=== PATIENT | female | born 1950 | race American Indian/Alaskan Native ===

== ENCOUNTER 2017-03-21 09:54 | Observation (INO) | payer MEDICARE, MEDICAID, OTHER ==
[2017-03-21] MEDS ORDERED: Sodium Chloride 0.9% 1,000 ML IV SCH (10:00)
--- NOTE | 2017-03-21 10:03 | EDM.PDOC ---
ED HPI GENERAL MEDICAL PROBLEM - General Chief Complaint: Chest Pain Stated Complaint: IN BY AMBULANCE Time Seen by Provider: 03/21/17 09:54 Source of Information: Reports: Patient, EMS History Limitations: Reports: No Limitations - History of Present Illness INITIAL COMMENTS - FREE TEXT/NARRATIVE: 66 yo [place] Female c/o chest pain while in bed and was awoken. Pt took 2 sl ntg. and pain resolved. Pt. got out of bed and started dizziness. Ambulance called and Pt. given aspirin. PMHx. CAHD w/ 2 stents placed. PMHx. DM X 3 yrs. Onset: Today Onset Date: 03/21/17 Onset Time: 09:00 Duration: Hour(s): Location: Reports: Chest, Generalized Quality: Reports: Ache Severity: Moderate Improves with: Reports: Medication Worsens with: Reports: None Context: Reports: Other (PMHx. CAHD) Associated Symptoms: Reports: Chest Pain, Malaise, Weakness - Related Data Allergies Allergy/AdvReac Type Severity Reaction Status Date / Time No Known Allergies Allergy Verified 03/21/17 10:06 Home Meds: Home Meds ALPRAZolam [Xanax] 0.5 mg PO DAILY 08/20/14 [History] Aspirin [Ritu Chewable] 81 mg PO DAILY 08/20/14 [History] Lisinopril [Prinivil] 20 mg PO DAILY 08/20/14 [History] Metoprolol Tartrate [Lopressor] 25 mg PO BID 08/20/14 [History] Nitroglycerin [Nitrostat] 0.4 mg SL ASDIRECTED PRN 08/20/14 [History] [place]-3 Fatty Acids [[place]-3] 1 tab PO DAILY 08/20/14 [History] Oxybutynin 5 mg PO TID 08/20/14 [History] glyBURIDE [Glyburide] 10 mg PO DAILY 08/20/14 [History] Ammonium Lactate 1 applic TOP BID 03/14/16 [History] Fenofibric Acid (Choline) [Fenofibric Acid] 45 mg PO DAILY 03/14/16 [History] Sertraline [Zoloft] 100 mg PO DAILY 03/14/16 [History] atorvaSTATin [Lipitor] 20 mg PO DAILY 03/14/16 [History] Past Medical History HEENT History: Reports: Impaired Vision Cardiovascular History: Reports: Angina, Stents Social & Family History - Family History Family Medical History: Noncontributory - Tobacco Use Smoking Status *Q: Former Smoker Years of Tobacco use: 35 Used Tobacco, but Quit: Yes Month Tobacco Last Used: 6 years - Caffeine Use Caffeine Use: Reports: Coffee - Alcohol Use Days Per Week of Alcohol Use: 0 - Recreational Drug Use Recreational Drug Use: No ED ROS GENERAL - Review of Systems Review Of Systems: See Below Constitutional: Reports: Weakness, Fatigue HEENT: Reports: No Symptoms Respiratory: Reports: No Symptoms Cardiovascular: Reports: Chest Pain Endocrine: Reports: No Symptoms GI/Abdominal: Reports: No Symptoms : Reports: No Symptoms Musculoskeletal: Reports: No Symptoms Skin: Reports: No Symptoms Neurological: Reports: No Symptoms Psychiatric: Reports: No Symptoms Hematologic/Lymphatic: Reports: No Symptoms Immunologic: Reports: No Symptoms ED EXAM, GENERAL - Physical Exam Exam: See Below Exam Limited By: No Limitations General Appearance: Alert, WD/WN, No Apparent Distress Eye Exam: Bilateral Eye: EOMI, PERRL Ears: Normal External Exam Nose: Normal Inspection Throat/Mouth: Normal Inspection Head: Atraumatic, Normocephalic Neck: Normal Inspection Respiratory/Chest: No Respiratory Distress Cardiovascular: Normal Peripheral Pulses, Regular Rate, Rhythm, No Edema Peripheral Pulses: 2+: Brachial (L), Brachial (R) GI/Abdominal: Normal Bowel Sounds Back Exam: Normal Inspection Extremities: Normal Inspection Neurological: Alert, Oriented, CN II-XII Intact Psychiatric: Normal Affect, Normal Mood Skin Exam: Warm, Intact Lymphatic: No Adenopathy Course - Vital Signs Last Recorded V/S: Last Vital Signs Temp 36.2 C 03/21/17 09:57 Pulse 53 L 03/21/17 10:50 Resp 12 03/21/17 10:50 BP 97/57 L 03/21/17 10:50 Pulse Ox 98 03/21/17 10:50 - Orders/Labs/Meds Orders: Active Orders 24 hr Category Date Time Status EKG Documentation Completion [RC] STAT Care 03/21/17 09:55 Active RT Aerosol Therapy [RC] ASDIRECTED Care 03/21/17 12:09 Active CULTURE BLOOD [BC] Stat Lab 03/21/17 12:08 Ordered CULTURE URINE [RM] Stat Lab 03/21/17 11:12 Received LACTIC ACID [CHEM] Stat Lab 03/21/17 12:08 Ordered Sodium Chloride 0.9% [Normal Saline] 1,000 ml Med 03/21/17 10:00 Active IV ASDIRECTED cefTRIAXone [Rocephin] 1 gm Med 03/21/17 11:58 Active Sodium Chloride 0.9% [Normal Saline] 50 ml IV ONETIME Medication Orders Sodium Chloride (Normal Saline) 1,000 mls @ 75 mls/hr IV ASDIRECTED [facility] Last Admin: 03/21/17 10:12 Dose: 75 mls/hr Ceftriaxone Sodium 1 gm/ (Sodium Chloride) 50 mls @ 100 mls/hr IV ONETIME ONE Stop: 03/21/17 12:27 Last Admin: 03/21/17 12:03 Dose: 100 mls/hr Labs: Laboratory Tests 03/21/17 03/21/17 03/21/17 Range/Units 09:58 09:58 09:58 WBC 8.2 (5.0-10.0) 10^3/uL RBC 4.11 L (4.2-5.4) 10^6/uL Hgb 12.4 (12.0-16.0) g/dL Hct 37.7 (37.0-47.0) % MCV 91.7 (80-100) fL MCH 30.2 (27.0-34.0) pg MCHC 32.9 L (33.0-35.0) g/dL Plt Count 226 (150-450) 10^3/uL Neut % (Auto) 48.4 (42.2-75.2) % Lymph % (Auto) 39.5 (20.5-50.1) % [place] % (Auto) 8.8 H (2-8) % Eos % (Auto) 3.2 H (1.0-3.0) % Baso % (Auto) 0.1 (0.0-1.0) % PT 9.7 (9.0-12.0) SEC INR 1.0 (0.9-1.2) APTT 23.5 (22.0-34.0) SEC D-Dimer, Quantitative 613 H (0-400) ng/mL Sodium 139 (135-145) mmol/L Potassium 3.8 (3.6-5.0) mmol/L Chloride 108 (101-111) mmol/L Carbon Dioxide 24.0 (21.0-31.0) mmol/L Anion Gap 10.8 BUN 20 H (7-18) mg/dL Creatinine 1.1 (0.6-1.3) mg/dL Est Cr Clr Drug Dosing 42.85 mL/min Estimated GFR (MDRD) 50 BUN/Creatinine Ratio 18.18 Glucose 155 H (74-105) mg/dL Calcium 8.1 L (8.4-10.2) mg/dl Total Bilirubin 0.4 (0.2-1.0) mg/dL AST 18 (10-42) IU/L ALT 11 (10-60) IU/L Alkaline Phosphatase 33 L (42-121) IU/L Troponin I < 0.02 (0.00-0.02) ng/ml Total Protein 5.9 L (6.7-8.2) g/dl Albumin 3.0 L (3.2-5.5) g/dl Globulin 2.9 Albumin/Globulin Ratio 1.03 Urine Color (YELLOW) Urine Appearance (CLEAR) Urine pH (5.0-9.0) Ur Specific [place] (1.005-1.030) Urine Protein (NEGATIVE) Urine Glucose (UA) (NEGATIVE) Urine Ketones (NEGATIVE) Urine Occult Blood (NEGATIVE) Urine Nitrite (NEGATIVE) Urine Bilirubin (NEGATIVE) Urine Urobilinogen (0.2-1.0) mg/dL Ur Leukocyte Esterase (NEGATIVE) Urine RBC /HPF Urine WBC (0-5/HPF) /HPF Calcium Oxalate Crystal /HPF Amorphous Sediment (0/HPF) /HPF Urine Bacteria (0-FEW/HPF) /HPF 03/21/ Range/Units 11:12 WBC (5.0-10.0) 10^3/uL RBC (4.2-5.4) 10^6/uL Hgb (12.0-16.0) g/dL Hct (37.0-47.0) % MCV (80-100) fL MCH (27.0-34.0) pg MCHC (33.0-35.0) g/dL Plt Count (150-450) 10^3/uL Neut % (Auto) (42.2-75.2) % Lymph % (Auto) (20.5-50.1) % [place] % (Auto) (2-8) % Eos % (Auto) (1.0-3.0) % Baso % (Auto) (0.0-1.0) % PT (9.0-12.0) SEC INR (0.9-1.2) APTT (22.0-34.0) SEC D-Dimer, Quantitative (0-400) ng/mL Sodium (135-145) mmol/L Potassium (3.6-5.0) mmol/L Chloride (101-111) mmol/L Carbon Dioxide (21.0-31.0) mmol/L Anion Gap BUN (7-18) mg/dL Creatinine (0.6-1.3) mg/dL Est Cr Clr Drug Dosing mL/min Estimated GFR (MDRD) BUN/Creatinine Ratio Glucose (74-105) mg/dL Calcium (8.4-10.2) mg/dl Total Bilirubin (0.2-1.0) mg/dL AST (10-42) IU/L ALT (10-60) IU/L Alkaline Phosphatase (42-121) IU/L Troponin I (0.00-0.02) ng/ml Total Protein (6.7-8.2) g/dl Albumin (3.2-5.5) g/dl Globulin Albumin/Globulin Ratio Urine Color Yellow (YELLOW) Urine Appearance Cloudy (CLEAR) Urine pH 7.0 (5.0-9.0) Ur Specific [place] 1.020 (1.005-1.030) Urine Protein >=300 H (NEGATIVE) Urine Glucose (UA) Negative (NEGATIVE) Urine Ketones Negative (NEGATIVE) Urine Occult Blood Moderate H (NEGATIVE) Urine Nitrite Negative (NEGATIVE) Urine Bilirubin Negative (NEGATIVE) Urine Urobilinogen 0.2 (0.2-1.0) mg/dL Ur Leukocyte Esterase Negative (NEGATIVE) Urine RBC 10-20 H /HPF Urine WBC 0-5 (0-5/HPF) /HPF Calcium Oxalate Crystal Rare /HPF Amorphous Sediment Many H (0/HPF) /HPF Urine Bacteria Many H (0-FEW/HPF) /HPF Meds: Medications Generic Name Dose Route Start Last Admin Trade Name Freq PRN Reason Stop Dose Admin Sodium Chloride 1,000 mls @ 75 mls/hr 03/21/17 10:00 03/21/17 10:12 Normal Saline IV 75 mls/hr ASDIRECTED DAVID Administration Ceftriaxone Sodium 1 gm/ 50 mls @ 100 mls/hr 03/21/17 11:58 03/21/17 12:03 Sodium Chloride IV 03/21/17 12:27 100 mls/hr ONETIME ONE Administration Discontinued Medications Generic Name Dose Route Start Last Admin Trade Name Jonathan PRN Reason Stop Dose Admin Albuterol/Ipratropium 3 ml 03/21/17 12:09 Duoneb 3.0-0.5 Mg/3 Ml NEB 03/21/17 12:10 ONETIME ONE Iopamidol 100 ml 03/21/17 11:26 03/21/17 11:27 Isovue-370 (76%) IVPUSH 03/21/17 11:27 64 ml ONETIME ONE Administration Departure - Departure Time of Disposition: 12:17 Disposition: Admitted As Inpatient 65 Condition: Fair Clinical Impression: Atypical chest pain Pneumonia Qualifiers: Pneumonia type: due to unspecified organism Laterality: unspecified laterality Lung location: unspecified part of lung Qualified Code(s): J18.9 - Pneumonia, unspecified organism UTI (urinary tract infection) Qualifiers: Urinary tract infection type: acute cystitis Hematuria presence: with hematuria Qualified Code(s): N30.01 - Acute cystitis with hematuria Referrals: Baljinder Currie MD [Physician] - Forms: ED Department Discharge - My Orders Last 24 Hours: My Active Orders 03/21/17 09:55 EKG Documentation Completion [RC] STAT 03/21/17 10:00 Sodium Chloride 0.9% [Normal Saline] 1,000 ml IV ASDIRECTED 03/21/17 11:12 CULTURE URINE [RM] Stat 03/21/17 11:58 cefTRIAXone [Rocephin] 1 gm Sodium Chloride 0.9% [Normal Saline] 50 ml IV ONETIME 03/21/17 12:08 CULTURE BLOOD [BC] Stat LACTIC ACID [CHEM] Stat 03/21/17 12:09 RT Aerosol Therapy [RC] ASDIRECTED - Assessment/Plan Last 24 Hours: My Active Orders 03/21/17 09:55 EKG Documentation Completion [RC] STAT 03/21/17 10:00 Sodium Chloride 0.9% [Normal Saline] 1,000 ml IV ASDIRECTED 03/21/17 11:12 CULTURE URINE [RM] Stat 03/21/17 11:58 cefTRIAXone [Rocephin] 1 gm Sodium Chloride 0.9% [Normal Saline] 50 ml IV ONETIME 03/21/17 12:08 CULTURE BLOOD [BC] Stat LACTIC ACID [CHEM] Stat 03/21/17 12:09 RT Aerosol Therapy [RC] ASDIRECTED
[2017-03-21 10:25] LABS: CHLORIDE,CL 108 mmol/L (101-111); SODIUM,NA 139 mmol/L (135-145)
--- NOTE | 2017-03-21 10:27 | CR ---
Clinical history: 66-year-old female chest pain. Interpretation: No acute new cardiopulmonary abnormality identified in the interval since 14 March 2016 exam. External mail list librarian leads. Normal cardiac silhouette without alveolar edema or dependent pleural effusion. No new lung mass, hilar lymphadenopathy or focal lobar pneumonia. No atelectasis/collapse. No pneumot horax.
[2017-03-21] MEDS ORDERED: Iopamidol 755 Mg/ML 100 ML Bottle IVPUSH ONE (11:26)
[2017-03-21] MEDS ORDERED: cefTRIAXone 1 GM in Sodium Chloride 0.9% 50 ML IV ONE (11:58)
--- NOTE | 2017-03-21 11:59 | CT ---
Clinical history: 66-year-old hypertensive 166 pound diabetic female with chest pain and serum D dime r 630. TECHNIQUE: Volume acquisition of data from the chest (bony thorax, lungs and mediastinum) obtained du ring the intravenous nonionic Isovue 370 contrast via injector while patient was lying supine on the Siemens multislice scanner [place], [place]. All data archived in the PACS system for storage, reformatting and (lung/mediastinal windows). Interpretation: Low probability pulmonary embolism/infarct. Multilobar infiltrates and subtle right a pical mass density. 1. Peribronchial "cuffing" and bilateral small subpleural cystic lesions. 2. Scattered patchy multilobar peripheral infiltrates involving upper and lower lobes. Clinical aspir ation? (No hiatus hernia). 3. *No intraluminal filling defect or thrombus identified in the pulmonary artery circulation. No abn ormal focal areas of lobar oligemia, peripheral wedge-shaped infarct or associated pleural effusion. 4. Normal cardiac silhouette. No pericardial effusion. No alveolar edema. Calcifications normal calib er thoracic aorta. 5. Asymmetric, posterior apical pleural mass density, on the right, suggested on recent plain chest e xam this is relatively unchanged compared to AP chest plain film 14 March 2016. Significance? No o verlying rib destruction. 6. No parenchymal lung nodule or hilar/mediastinal lymphadenopathy.
[2017-03-21] MEDS ORDERED: Albuterol/Ipratropium 3.0-0.5 MG/3 ML Neb Soln NEB ONE (12:09)
[2017-03-21] MEDS ORDERED: Ondansetron 4 MG Tab.DIS PO PRN (13:10)
[2017-03-21] MEDS ORDERED: Acetaminophen 325 MG Tab PO PRN (13:10)
[2017-03-21] MEDS ORDERED: Zolpidem 5 MG Tab PO PRN (13:10)
--- NOTE | 2017-03-21 13:19 | PCM.HP ---
H&P History of Present Illness - General Date of Service: 03/21/17 Admit Problem/Dx: Admission Diagnosis/Problem Admission Diagnosis/Problem Chest pain Source of Information: Patient - History of Present Illness Initial Comments - Free Text/Narative: The patient has a history of coronary artery disease, CHF. The patient presented with "heartburn". She is describing a burning sensation in the chest midsternal area. This was associated with the episodes of vomiting. He has a dry cough but no fever, chills. Sick contacts. Chest pain has resolved. Shortness of breath. No urinary burning, abdominal pain. - Related Data Allergies/Adverse Reactions: Allergies Allergy/AdvReac Type Severity Reaction Status Date / Time No Known Allergies Allergy Verified 03/21/17 13:04 Home Medications: Home Meds ALPRAZolam [Xanax] 0.5 mg PO DAILY 08/20/14 [History] Aspirin [Ritu Chewable] 81 mg PO DAILY 08/20/14 [History] Lisinopril [Prinivil] 20 mg PO DAILY 08/20/14 [History] Metoprolol Tartrate [Lopressor] 25 mg PO BID 08/20/14 [History] Nitroglycerin [Nitrostat] 0.4 mg SL ASDIRECTED PRN 08/20/14 [History] [place]-3 Fatty Acids [[place]-3] 1 tab PO DAILY 08/20/14 [History] Oxybutynin 5 mg PO TID 08/20/14 [History] glyBURIDE [Glyburide] 10 mg PO DAILY 08/20/14 [History] Ammonium Lactate 1 applic TOP BID 03/14/16 [History] Fenofibric Acid (Choline) [Fenofibric Acid] 45 mg PO DAILY 03/14/16 [History] Sertraline [Zoloft] 100 mg PO DAILY 03/14/16 [History] atorvaSTATin [Lipitor] 20 mg PO DAILY 03/14/16 [History] Past Medical History HEENT History: Reports: Impaired Vision Cardiovascular History: Reports: Angina, Stents Respiratory History: Reports: None Gastrointestinal History: Reports: None Genitourinary History: Reports: None [employer]PER[employer]OR History: Reports: None Musculoskeletal History: Reports: None Neurological History: Reports: None Psychiatric History: Reports: None Endocrine/Metabolic History: Reports: Diabetes, Type II Hematologic History: Reports: None Immunologic History: Reports: None Oncologic (Cancer) History: Reports: None Dermatologic History: Reports: None - Infectious Disease History Infectious Disease History: Reports: None - Past Surgical History Cardiovascular Surgical History: Reports: Carotid Endarterectomy, Coronary Artery Stent Social & Family History - Family History Family Medical History: Noncontributory - Tobacco Use Smoking Status *Q: Former Smoker Years of Tobacco use: 35 Used Tobacco, but Quit: Yes Month Tobacco Last Used: 6 years - Caffeine Use Caffeine Use: Reports: Coffee - Alcohol Use Days Per Week of Alcohol Use: 0 - Recreational Drug Use Recreational Drug Use: No H&P Review of Systems - Review of Systems: Review Of Systems: See Below General: Denies: Fever, Chills Pulmonary: Denies: Shortness of Breath Cardiovascular: Reports: Chest Pain. Denies: Edema Gastrointestinal: Denies: Abdominal Pain Genitourinary: Denies: Dysuria Psychiatric: Denies: Confusion Exam - Exam Exam: See Below - Vital Signs Vital Signs: Last Vital Signs Temp 36.4 C 03/21/17 12:51 Pulse 58 L 03/21/17 12:51 Resp 20 03/21/17 12:51 BP 102/54 L 03/21/17 12:51 Pulse Ox 100 03/21/17 12:51 Weight: 77.111 kg - Exam General: Alert, Oriented Neck: Supple, Trachea Midline Lungs: Normal Respiratory Effort, Decreased Breath Sounds Cardiovascular: Regular Rate, Regular Rhythm GI/Abdominal Exam: Normal Bowel Sounds, Soft, Non-Tender, No Organomegaly Extremities: No Pedal Edema Skin: Warm, Dry Neuro Extensive - Mental Status: Alert, Oriented x3, Normal Mood/Affect Psychiatric: Normal Affect, Normal Mood - Patient Data Result Diagrams: 03/21/17 09:58 03/21/17 09:58 EKG INTERPRETATION Rhythm: NSR *Q Meaningful Use (ADM) - VTE *Q VTE Criteria *Q: - Stroke *Q Stroke Criteria *Q: - AMI *Q AMI Criteria *Q: - Problem List (1) Atypical chest pain SNOMED Code(s): 933927295 ICD Code: R07.89 - OTHER CHEST PAIN Status: Acute Current Visit: Yes Problem List Initiated/Reviewed/Updated: Yes Orders Last 24hrs: Active Orders 24 hr Category Date Time Status Patient Status [ADT] Routine ADT 03/21/17 13:10 Ordered Antiembolic Devices [RC] PER UNIT ROUTINE Care 03/21/17 13:13 Ordered Blood Glucose Check, Bedside [RC] QIDACANDBED Care 03/21/17 13:10 Ordered Oxygen Therapy [RC] PRN Care 03/21/17 13:10 Ordered Peripheral IV Care [RC] . DIRECTED Care 03/21/17 13:13 Ordered Telemetry Monitoring [Cardiac Monitoring] [RC] . Care 03/21/17 13:05 Ordered DIRECTED Up With Assistance [RC] ASDIRECTED Care 03/21/17 13:10 Ordered VTE/DVT Education [RC] PER UNIT ROUTINE Care 03/21/17 13:10 Ordered Vital Signs [RC] Q4H Care 03/21/17 13:10 Ordered Consistent Carbohydrate Diet [DIET] Diet 03/21/17 Dinner Ordered BASIC METABOLIC PANEL,BMP [CHEM] AM Lab 03/22/17 05:11 Ordered CBC WITH AUTO DIFF [HEME] AM Lab 03/22/17 05:11 Ordered CULTURE SPUTUM + SMEAR [RM] Routine Lab 03/21/17 13:03 Uncollected TROPONIN I [CHEM] AM Lab 03/22/17 05:11 Ordered TROPONIN I [CHEM] Routine Lab 03/21/17 18:00 Ordered ALPRAZolam [Xanax] Med 03/22/17 09:00 Ordered 0.5 mg PO DAILY Acetaminophen [Tylenol] Med 03/21/17 13:10 Ordered 650 mg PO Q4H PRN Aspirin Med 03/22/17 09:00 Ordered 81 mg PO DAILY Fenofibric Acid (Choline) [Fenofibric Acid] Med 03/22/17 09:00 Ordered 45 mg PO DAILY Heparin Sodium Med 03/21/17 14:00 Ordered 5,000 units SUBCUT Q8HR Insulin Aspart [NovoLOG] Med 03/21/17 17:00 Ordered See Protocol SUBCUT TIDAC Lisinopril [Prinivil] Med 03/22/17 09:00 Ordered 20 mg PO DAILY Metoprolol Tartrate [Lopressor] Med 03/21/17 21:00 Ordered 25 mg PO BID Roper-3 Fatty Acids [Roper-3] Med 03/22/17 09:00 Ordered 1 tab PO DAILY Ondansetron [Zofran ODT] Med 03/21/17 13:10 Ordered 4 mg PO Q6H PRN Oxybutynin Med 03/21/17 14:00 Ordered 5 mg PO TID Piperacillin/Tazobactam [Zosyn] 3.375 gm Med 03/21/17 13:15 Ordered Sodium Chloride 0.9% [Normal Saline] 100 ml IV Q6H Sertraline [Zoloft] Med 03/22/17 09:00 Ordered 100 mg PO DAILY Sodium Chloride 0.9% [Saline Flush] Med 03/21/17 13:10 Ordered 10 ml FLUSH ASDIRECTED PRN Zolpidem [Ambien] Med 03/21/17 13:10 Ordered 5 mg PO BEDTIME PRN atorvaSTATin [Lipitor] Med 03/22/17 09:00 Ordered 20 mg PO DAILY glyBURIDE [Micronase] Med 03/22/17 09:00 Ordered 10 mg PO DAILY Antiembolic Hose [OM.PC] Per Unit Routine Oth 03/21/17 13:12 Ordered Peripheral IV Insertion Adult [OM.PC] Routine Oth 03/21/17 13:10 Ordered Saline Lock Insert [OM.PC] Routine Oth 03/21/17 13:10 Ordered Resuscitation Status Routine Resus Stat 03/21/17 13:10 Ordered Medication Orders Acetaminophen (Tylenol) 650 mg PO Q4H PRN PRN Reason: Pain (Mild 1-3)/fever Alprazolam (Xanax) 0.5 mg PO DAILY [facility] Aspirin (Aspirin) 81 mg PO DAILY [facility] Atorvastatin Calcium (Lipitor) 20 mg PO DAILY [facility] Glyburide (Micronase) 10 mg PO DAILY [facility] Piperacillin Sod/Tazobactam (Sod 3.375 gm/ Sodium Chloride) 100 mls @ 200 mls/ hr IV Q6HR [facility] Lisinopril (Prinivil) 20 mg PO DAILY [facility] Metoprolol Tartrate (Lopressor) 25 mg PO BID [facility] Non-Formulary Medication (Fenofibric Acid (Choline) [Fenofibric Acid]) 45 mg PO DAILY [facility] Non-Formulary Medication (Roper-3 Fatty Acids [Roper-3]) 1 tab PO DAILY [facility] Non-Formulary Medication (Sertraline [Zoloft]) 100 mg PO DAILY [facility] Oxybutynin Chloride (Oxybutynin) 5 mg PO TID [facility] Assessment/Plan Comment:: Presented with "heartburn" nausea and vomiting. The patient clinically has little signs and symptoms of pulmonary infection. She does have a nonproductive cough. No sick contact, denies fever. CT of the chest showed the low probability pulmonary embolism/infarct, multilobar infiltrates and subtle right apical mass density The patchy multilobar infiltrates were seen involving the upper and lower lobe. For his. 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 The patient did state that she had vomiting, question aspiration. For now well obtain sputum culture, blood culture. Empirically treat with Zosyn. Monitor for signs and symptoms of infection Consider follow-up CT in a month or 2 to make sure that the pleural based mass is not changed. The urine analysis is normal but appears contaminant. Nitrate and leukocyte esterase is negative. Will follow urine culture. Now treat with Zosyn History of coronary artery disease The patient was complaining of heartburn We will check troponins. Monitor on telemetry Treat with aspirin, Lipitor, lisinopril, metoprolol The chest discomfort for might relate to acid reflux disease. Start proton pump inhibitor Use antiemetics as needed Diabetes Treat with glyburide Follow blood sugars and use supplemental insulin as needed DVT prophylaxis will be with subcutaneous heparin
[2017-03-21] MEDS: Piperacillin/Tazobactam 3.375 GM in Sodium Chloride 0.9% 100 ML IV SCH ×3 (14:36→23:48)
[2017-03-21] MEDS: Heparin Sodium 5,000 Units/ML Vial SUBCUT SCH ×2 (14:36→21:06)
[2017-03-21] MEDS: Oxybutynin 5 MG Tab PO SCH ×2 (14:37→21:01)
[2017-03-21] MEDS: Pantoprazole 40 MG Tab.CR PO SCH ×2 (14:37→17:17)
[2017-03-21] MEDS: Sodium Chloride 0.9% 10 ML Syringe FLUSH PRN ×2 (17:17→23:48)
[2017-03-21] MEDS: Insulin Aspart 100 Units/ML 3 ML Pen SUBCUT SCH (17:28)
[2017-03-21] MEDS: Metoprolol Tartrate 25 MG Tab PO SCH (21:00)
[2017-03-22] MEDS: Heparin Sodium 5,000 Units/ML Vial SUBCUT SCH (05:46)
[2017-03-22] MEDS: Pantoprazole 40 MG Tab.CR PO SCH (05:47)
[2017-03-22] MEDS: Piperacillin/Tazobactam 3.375 GM in Sodium Chloride 0.9% 100 ML IV SCH ×2 (05:47→12:00)
[2017-03-22 06:31] LABS: CHLORIDE,CL 104 mmol/L (101-111); SODIUM,NA 138 mmol/L (135-145)
[2017-03-22] MEDS: Insulin Aspart 100 Units/ML 3 ML Pen SUBCUT SCH ×2 (07:46→11:20)
[2017-03-22] MEDS ORDERED: ALPRAZolam 0.5 MG Tab PO SCH (09:00)
[2017-03-22] MEDS ORDERED: glyBURIDE 5 MG Tab PO SCH (09:00)
[2017-03-22] MEDS ORDERED: Lisinopril 20 MG Tab PO SCH (09:00)
[2017-03-22] MEDS ORDERED: Aspirin 81 MG Tab.Chew PO SCH (09:00)
[2017-03-22] MEDS ORDERED: Sertraline 50 MG Tab PO SCH (09:00)
[2017-03-22] MEDS ORDERED: FENOFIBRIC ACID 45 MG PO SCH (09:00)
[2017-03-22] MEDS ORDERED: atorvaSTATin 20 MG Tab PO SCH (09:00)
[2017-03-22] MEDS ORDERED: OMEGA PO SCH (09:00)
[2017-03-22] MEDS: Oxybutynin 5 MG Tab PO SCH (09:05)
[2017-03-22] MEDS: Metoprolol Tartrate 25 MG Tab PO SCH (09:06)
[2017-03-22 09:07] VITALS: BP 133/66
[2017-03-22] MEDS: Sodium Chloride 0.9% 10 ML Syringe FLUSH PRN (09:07)
--- NOTE | 2017-03-22 10:01 | PCM.DCSUM1 ---
Discharge Summary - Hospital Course Free Text/Narrative:: Presented with "heartburn" nausea and vomiting. The patient clinically had little signs and symptoms of pulmonary infection. She does have a nonproductive cough. No sick contact, denies fever. CT of the chest showed the low probability pulmonary embolism/infarct, multilobar infiltrates and subtle right apical mass density The patchy multilobar infiltrates were seen involving the upper and lower lobe. 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 The patient did state that she had vomiting, question aspiration. sputum culture, blood culture: pending Empirically treated with Zosyn and will switch to Augmentin for bronchitis, possible aspiration pneumonia with vomiting. Consider follow-up CT in a month or 2 to make sure that the pleural based mass is not changed. The urine analysis is normal but appears contaminant. Nitrate and leukocyte esterase is negative. urine culture: pending History of coronary artery disease The patient was complaining of heartburn, cp. This was likely GERD started protonix had negative troponin Treat with aspirin, Lipitor, lisinopril, metoprolol - Discharge Data Discharge Date: 03/22/17 Discharge Disposition: Home, Self-Care 01 Condition: Good - Discharge Diagnosis/Problem(s) (1) Atypical chest pain SNOMED Code(s): 551202723 ICD Code: R07.89 - OTHER CHEST PAIN Status: Acute Current Visit: Yes - Patient Instructions Diet: Heart Healthy Diet Activity: As Tolerated - Discharge Plan Prescriptions/Med Rec: Amoxicillin/Potassium Clav [Augmentin 500-125 Tablet] 1 each PO TID #15 tablet Pantoprazole [ProTONIX] 40 mg PO DAILY #30 tab.cr Home Medications: Home Meds ALPRAZolam [Xanax] 0.5 mg PO DAILY 08/20/14 [History] Aspirin [Ritu Chewable Aspirin] 81 mg PO DAILY 08/20/14 [History] Lisinopril [Prinivil] 20 mg PO DAILY 08/20/14 [History] Metoprolol Tartrate [Lopressor] 25 mg PO BID 08/20/14 [History] Nitroglycerin [Nitrostat] 0.4 mg SL ASDIRECTED PRN 08/20/14 [History] Sondheimer-3 Fatty Acids [Sondheimer-3] 1 tab PO DAILY 08/20/14 [History] Oxybutynin 5 mg PO TID 08/20/14 [History] glyBURIDE [Glyburide] 10 mg PO DAILY 08/20/14 [History] Ammonium Lactate 1 applic TOP BID 03/14/16 [History] Fenofibric Acid (Choline) [Fenofibric Acid] 45 mg PO DAILY 03/14/16 [History] Sertraline [Zoloft] 100 mg PO DAILY 03/14/16 [History] atorvaSTATin [Lipitor] 20 mg PO DAILY 03/14/16 [History] Amoxicillin/Potassium Clav [Augmentin 500-125 Tablet] 1 each PO TID #15 tablet 03/22/17 [Rx] Pantoprazole [ProTONIX] 40 mg PO DAILY #30 tab.cr 03/22/17 [Rx] Referrals: Provider,Unknown [Ordering Only Provider] - (in 4-5 days) - Discharge Summary/Plan Comment DC Time >30 min.: No - General Info Date of Service: 03/22/17 Admission Dx/Problem (Free Text: Admission Diagnosis/Problem feeling well, has cough, no fever - Review of Systems General: Denies: Fever, Fatigue Pulmonary: Denies: Shortness of Breath Cardiovascular: Denies: Chest Pain Gastrointestinal: Denies: Abdominal Pain Genitourinary: Denies: Dysuria Neurological: Denies: Confusion - Patient Data Vitals - Most Recent: Last Vital Signs Temp 36.9 C 03/22/17 06:56 Pulse 62 03/22/17 09:06 Resp 20 03/22/17 06:56 BP 133/66 03/22/17 09:06 Pulse Ox 99 03/22/17 06:56 Weight - Most Recent: 77.564 kg I&O - Last 24 hours: Intake & Output 03/21/17 03/22/17 03/22/17 22:59 06:59 14:59 Intake Total 439 900 Output Total 300 1400 800 Balance 139 -500 -800 Lab Results - Last 24 hrs: Laboratory Results - last 24 hr 03/21/17 03/21/17 03/21/17 Range/Units 16:38 18:00 21:06 WBC (5.0-10.0) 10^3/uL RBC (4.2-5.4) 10^6/uL Hgb (12.0-16.0) g/dL Hct (37.0-47.0) % MCV (80-100) fL MCH (27.0-34.0) pg MCHC (33.0-35.0) g/dL Plt Count (150-450) 10^3/uL Neut % (Auto) (42.2-75.2) % Lymph % (Auto) (20.5-50.1) % [place] % (Auto) (2-8) % Eos % (Auto) (1.0-3.0) % Baso % (Auto) (0.0-1.0) % Sodium (135-145) mmol/L Potassium (3.6-5.0) mmol/L Chloride (101-111) mmol/L Carbon Dioxide (21.0-31.0) mmol/L Anion Gap BUN (7-18) mg/dL Creatinine (0.6-1.3) mg/dL Est Cr Clr Drug Dosing mL/min Estimated GFR (MDRD) Glucose (74-105) mg/dL POC Glucose 100 51 L (70-105) mg/dl Calcium (8.4-10.2) mg/dl Troponin I < 0.02 (0.00-0.02) ng/ml 03/22/17 03/22/17 03/22/17 Range/Units 05:00 05:00 06:24 WBC 7.0 (5.0-10.0) 10^3/uL RBC 3.97 L (4.2-5.4) 10^6/uL Hgb 12.0 (12.0-16.0) g/dL Hct 36.7 L (37.0-47.0) % MCV 92.4 (80-100) fL MCH 30.2 (27.0-34.0) pg MCHC 32.7 L (33.0-35.0) g/dL Plt Count 227 (150-450) 10^3/uL Neut % (Auto) 38.5 L (42.2-75.2) % Lymph % (Auto) 49.7 (20.5-50.1) % [place] % (Auto) 8.3 H (2-8) % Eos % (Auto) 3.2 H (1.0-3.0) % Baso % (Auto) 0.3 (0.0-1.0) % Sodium 138 (135-145) mmol/L Potassium 4.2 (3.6-5.0) mmol/L Chloride 104 (101-111) mmol/L Carbon Dioxide 24.0 (21.0-31.0) mmol/L Anion Gap 14.2 BUN 18 (7-18) mg/dL Creatinine 1.1 (0.6-1.3) mg/dL Est Cr Clr Drug Dosing 42.85 mL/min Estimated GFR (MDRD) 50 Glucose 65 L (74-105) mg/dL POC Glucose 119 H (70-105) mg/dl Calcium 8.4 (8.4-10.2) mg/dl Troponin I < 0.02 (0.00-0.02) ng/ml 03/22/17 Range/Units 07:35 WBC (5.0-10.0) 10^3/uL RBC (4.2-5.4) 10^6/uL Hgb (12.0-16.0) g/dL Hct (37.0-47.0) % MCV (80-100) fL MCH (27.0-34.0) pg MCHC (33.0-35.0) g/dL Plt Count (150-450) 10^3/uL Neut % (Auto) (42.2-75.2) % Lymph % (Auto) (20.5-50.1) % [place] % (Auto) (2-8) % Eos % (Auto) (1.0-3.0) % Baso % (Auto) (0.0-1.0) % Sodium (135-145) mmol/L Potassium (3.6-5.0) mmol/L Chloride (101-111) mmol/L Carbon Dioxide (21.0-31.0) mmol/L Anion Gap BUN (7-18) mg/dL Creatinine (0.6-1.3) mg/dL Est Cr Clr Drug Dosing mL/min Estimated GFR (MDRD) Glucose (74-105) mg/dL POC Glucose 80 (70-105) mg/dl Calcium (8.4-10.2) mg/dl Troponin I (0.00-0.02) ng/ml Med Orders - Current: Current Medications Acetaminophen (Tylenol) 650 mg PO Q4H PRN PRN Reason: Pain (Mild 1-3)/fever Alprazolam (Xanax) 0.5 mg PO DAILY [facility] Last Admin: 03/22/17 09:05 Dose: 0.5 mg Aspirin (Aspirin) 81 mg PO DAILY [facility] Last Admin: 03/22/17 09:04 Dose: 81 mg Atorvastatin Calcium (Lipitor) 20 mg PO DAILY [facility] Last Admin: 03/22/17 09:06 Dose: 20 mg Glyburide (Micronase) 10 mg PO DAILY [facility] Last Admin: 03/22/17 09:05 Dose: 10 mg Heparin Sodium (Porcine) (Heparin Sodium) 5,000 units SUBCUT Q8HR [facility] Last Admin: 03/22/17 05:46 Dose: 5,000 units Piperacillin Sod/Tazobactam (Sod 3.375 gm/ Sodium Chloride) 100 mls @ 200 mls/ hr IV Q6HR [facility] Last Infusion: 03/22/17 07:47 Dose: Infused Insulin Aspart (Novolog) 0 unit SUBCUT TIDAC [facility] PRN Reason: Protocol Last Admin: 03/22/17 07:46 Dose: Not Given Lisinopril (Prinivil) 20 mg PO DAILY [facility] Last Admin: 03/22/17 09:06 Dose: 20 mg Metoprolol Tartrate (Lopressor) 25 mg PO BID [facility] Last Admin: 03/22/17 09:06 Dose: 25 mg Non-Formulary Medication (Fenofibric Acid (Choline) [Fenofibric Acid]) 45 mg PO DAILY [facility] Non-Formulary Medication (Sondheimer-3 Fatty Acids [Sondheimer-3]) 1 tab PO DAILY [facility] Ondansetron HCl (Zofran Odt) 4 mg PO Q6H PRN PRN Reason: nausea, able to take PO Oxybutynin Chloride (Oxybutynin) 5 mg PO TID [facility] Last Admin: 03/22/17 09:05 Dose: 5 mg Pantoprazole Sodium (Protonix) 40 mg PO BIDAC [facility] Last Admin: 03/22/17 05:47 Dose: 40 mg Sertraline HCl (Zoloft) 100 mg PO DAILY [facility] Last Admin: 03/22/17 09:06 Dose: 100 mg Sodium Chloride (Saline Flush) 10 ml FLUSH ASDIRECTED PRN PRN Reason: Keep Vein Open Last Admin: 03/22/17 09:07 Dose: 10 ml Zolpidem Tartrate (Ambien) 5 mg PO BEDTIME PRN PRN Reason: Sleep Discontinued Medications Albuterol/Ipratropium (Duoneb 3.0-0.5 Mg/3 Ml) 3 ml NEB ONETIME ONE Stop: 03/21/17 12:10 Last Admin: 03/21/17 12:26 Dose: 3 ml Sodium Chloride (Normal Saline) 1,000 mls @ 75 mls/hr IV ASDIRECTED DAVID Last Admin: 03/21/17 10:12 Dose: 75 mls/hr Ceftriaxone Sodium 1 gm/ (Sodium Chloride) 50 mls @ 100 mls/hr IV ONETIME ONE Stop: 03/21/17 12:27 Last Admin: 03/21/17 12:03 Dose: 100 mls/hr Iopamidol (Isovue-370 (76%)) 100 ml IVPUSH ONETIME ONE Stop: 03/21/17 11:27 Last Admin: 03/21/17 11:27 Dose: 64 ml - Exam General: Reports: Alert, Oriented Neck: Reports: Supple Lungs: Reports: Clear to Auscultation, Normal Respiratory Effort Cardiovascular: Reports: Regular Rate, Regular Rhythm GI/Abdominal Exam: Normal Bowel Sounds, Soft, Non-Tender Extremities: No Pedal Edema *Q Meaningful Use (DIS) - VTE *Q VTE Criteria *Q: - Stroke *Q Stroke Criteria *Q: - AMI *Q AMI Criteria *Q:
--- NOTE | 2017-03-25 07:36 | EKG ---
03/21/2017- September JEANNIE - EKG per my reading shows sinus rhythm at the rate of 60. [facility] /[id number]
== END 2017-03-22 11:15 | disposition home or self-care (01) ==
LOC: DL.ED 09:54 → DL.MS 12:42 → UNDOADMOB 12:42 → INTOOBSV 12:42 → DL.MS 13:10
PROVIDERS: ADMIT Internal Medicine; ATTEND Internal Medicine
DX: R07.89 Other chest pain (principal); E11.9 Type 2 diabetes mellitus without complications; Z79.82 Long term (current) use of aspirin; Z79.2 Long term (current) use of antibiotics; Z79.899 Other long term (current) drug therapy; Z95.5 Presence of coronary angioplasty implant and graft; Z87.891 Personal history of nicotine dependence
CPT/HCPCS: 36415; 71010; 71260; 80048; 80053; 81001; 82962; 83605; 84484; 85025; 85379; 85610; 85730; 87040; 87086; 93005; 93010; 94640; 96361; 96365; 99285; A9270; J0696; J1644; J2543; J7030; J7050; Q9967; 87088; 87186; 96366; 96367; 96372; 99217; 99284; G0378

== ENCOUNTER 2018-10-06 07:13 | Day surgery (SDC) | payer MEDICARE, MEDICAID ==
[~2018-10-06 07:13] MED LIST: Dextrose 5%-0.45% NaCl 1,000 ML IV SCH; Midazolam 1 MG/ML 2 ML SDV ONE; Sodium Chloride 0.9% 10 ML Syringe FLUSH PRN; fentaNYL 100 MCG/2 ML SDV ONE
[2018-10-06] MEDS ORDERED: Midazolam 1 MG/ML 2 ML SDV IV ONE ×4 (07:14→08:33)
[2018-10-06] MEDS ORDERED: fentaNYL 100 MCG/2 ML SDV IV ONE ×3 (07:14→08:26)
[2018-10-06 12:49] VITALS: BP 125/98
--- NOTE | 2018-10-06 15:24 | OR ---
DATE: 10/06/2018 PROCEDURE PERFORMED: Incomplete colonoscopy. INSTRUMENT USED: PCF-H190DL Olympus video colonoscope. PREMEDICATIONS: Fentanyl 100 mcg intravenous, Versed 2 mg intravenous. The procedure was done under pulse oximetry, BP recording, and sap business [employer] consultant. INDICATION: The patient with previous colonic tubular adenoma. Surveillance colonoscopic examination is done for detection of any polypoid lesions and removal, endoscopic hemostasis therapy if needed. DESCRIPTION OF PROCEDURE: Initial rectal exam was unremarkable. Rigid anoscopy was normal. The scope was passed with ease up to the area of mid descending colon, large amount of solid fecal material was noted preventing further advancement of the instrument to visualize the proximal areas. Photographs were taken of the descending colon with solid stools. No bleeding was noted from any of the visualized areas at the commencement of the examination. No stricture. No vascular ectasia. No large isolated ulcerations seen. No evidence of diffuse inflammatory bowel disease in the form of friability, contact bleeding, or ulcerations. No polyp or tumor mass identified. No bleeding was noted from any of the visualized areas at the completion of examination. IMPRESSION: Normal study. The patient tolerated the procedure well. [facility] /[id number]
== END 2018-10-06 11:02 | disposition home or self-care (01) ==
LOC: DL.ENDO 07:13
PROVIDERS: ATTEND Internal Medicine Gastroenterology
DX: Z12.11 Encounter for screening for malignant neoplasm of colon (principal); Z86.010 Personal history of colon polyps; E11.9 Type 2 diabetes mellitus without complications; I10 Essential (primary) hypertension; E78.00 Pure hypercholesterolemia, unspecified; Z79.82 Long term (current) use of aspirin; Z79.899 Other long term (current) drug therapy; Z87.891 Personal history of nicotine dependence; Z95.5 Presence of coronary angioplasty implant and graft
CPT/HCPCS: 45330; 82962; G0121; J2250; J3010; J7042

== ENCOUNTER 2021-01-17 16:55 | Emergency (ER) | payer MEDICARE, MEDICAID | END 2021-01-17 21:12 | disposition left against medical advice (07) | LOC: DL.ED 16:55 | DX: Z53.21 Procedure and treatment not carried out due to patient leaving prior to being seen by health care provider (principal) ==

== ENCOUNTER 2021-03-06 23:50 | Inpatient (IN) | payer MEDICARE, MEDICAID ==
[2021-03-07] MEDS ORDERED: Sodium Chloride 0.9% 500 ML IV SCH (00:15)
--- NOTE | 2021-03-07 00:24 | EDM.PDOC ---
ED HPI GENERAL MEDICAL PROBLEM - General Stated Complaint: AMBULANCE Time Seen by Provider: 03/06/21 23:50 Source of Information: Reports: Patient History Limitations: Reports: No Limitations - History of Present Illness INITIAL COMMENTS - FREE TEXT/NARRATIVE: ED with c/o general pain, vomiting blood clots and bloody diarrhea. Hx recent dx with lung/bone cancer. Unsure what current medications are. States unable to care for self, has to crawl to get to bathroom. Unable to prepare meals. No family in area to assist with care. Decided yesterday not to proceed with chemo. Is also requesting DNR/ DNI. Is ok with fluids or blood if needed. Generalized Pain Score (Numeric/FACES): 8 - Related Data Allergies Allergy/AdvReac Type Severity Reaction Status Date / Time No Known Allergies Allergy Verified 10/15/18 07:29 Home Meds: Home Meds Oxybutynin 5 mg PO TID 08/20/14 [History] atorvaSTATin [Lipitor] 20 mg PO DAILY 03/14/16 [History] Pantoprazole [ProTONIX] 40 mg PO DAILY #30 tab.cr 03/22/17 [Rx] Gabapentin [Neurontin] 100 mg PO BID 01/18/21 [History] traMADol [Ultram] 100 mg PO Q4H PRN 01/18/21 [History] ClonazePAM [KlonoPIN] 0.5 mg PO DAILY PRN 03/07/21 [History] Ferrous Sulfate [Ferosul] 325 mg PO DAILY 03/07/21 [History] Folic Acid 1 mg PO DAILY 03/07/21 [History] Ondansetron [Zofran ODT] 4 mg PO Q6H PRN 03/07/21 [History] traZODone 50 mg PO BEDTIME 03/07/21 [History] Past Medical History HEENT History: Reports: Impaired Vision Cardiovascular History: Reports: Angina, CAD, High Cholesterol, Hypertension, SD, Stents, Other (See Below) Other Cardiovascular History: CAROTID STENOSIS, LEFT. RIGHT CAROTID BRUIT Respiratory History: Reports: None Gastrointestinal History: Reports: GERD Genitourinary History: Reports: Chronic Renal Insuffiency, Urinary Incontinence Other Genitourinary History: Stage 3 kidney failure. UROLITHIASIS CARDIOLOGY SPECIALIST History: Reports: , Other (See Below) Other CARDIOLOGY SPECIALIST History: HX OF THIN BASEMENT MEMBRANE DISEASE Musculoskeletal History: Reports: Arthritis, Back Pain, Chronic Neurological History: Reports: Migraines, Neuropathy, Diabetic Other Neuro History: in 20's Psychiatric History: Reports: Anxiety, Depression Endocrine/Metabolic History: Reports: Diabetes, Type II Hematologic History: Reports: None Immunologic History: Reports: None Oncologic (Cancer) History: Reports: None Dermatologic History: Reports: None - Infectious Disease History Infectious Disease History: Reports: Chicken Pox, Measles, Mumps - Past Surgical History Head Surgeries/Procedures: Reports: None HEENT Surgical History: Reports: None Cardiovascular Surgical History: Reports: Carotid Endarterectomy, Coronary Artery Stent, Other (See Below) Other Cardiovascular Surgeries/Procedures: ANGIOGRAM Respiratory Surgical History: Reports: None GI Surgical History: Reports: Colonoscopy Female Surgical History: Reports: Cystoscopy, Hysterectomy, Salpingo- Oophorectomy Musculoskeletal Surgical History: Reports: Shoulder Surgery, Other (See Below) Other Musculoskeletal Surgeries/Procedures:: disks in back and neck surgery Social & Family History - Family History Family Medical History: No Pertinent Family History - Caffeine Use Caffeine Use: Reports: Coffee, Tea Other Caffeine Use: 3 cups daily ED ROS GENERAL - Review of Systems Review Of Systems: See Below Constitutional: Reports: Malaise, Weakness, Decreased Appetite, Weight Loss HEENT: Reports: Glasses Respiratory: Reports: No Symptoms Endocrine: Reports: Fatigue GI/Abdominal: Reports: Anorexia, Black Stool, Bloody Stool, Diarrhea, Decreased Appetite : Reports: No Symptoms, Incontinence Musculoskeletal: Reports: Joint Pain, Muscle Pain, Muscle Stiffness Skin: Reports: No Symptoms Neurological: Reports: No Symptoms Psychiatric: Reports: Depression ED EXAM, GENERAL - Physical Exam Exam: See Below Exam Limited By: No Limitations General Appearance: Alert, Moderate Distress, Thin, Cachetic Eye Exam: Bilateral Eye: EOMI, PERRL Ears: Normal External Exam, Hearing Grossly Normal Nose: No: Normal Mucosa Throat/Mouth: No Airway Compromise. No: Normal Voice (soft ) Head: Atraumatic, Normocephalic Neck: Normal Inspection, Full Range of Motion Respiratory/Chest: Decreased Breath Sounds Cardiovascular: Normal Peripheral Pulses, Regular Rate, Rhythm GI/Abdominal: Normal Bowel Sounds Rectal (Female) Exam: Hemorrhoids Extremities: Normal Range of Motion Neurological: Alert, Oriented, Normal Cognition Psychiatric: Tearful Skin Exam: Warm, Dry, Pallor Course - Vital Signs Last Recorded V/S: Last Vital Signs Temp 98.0 F 03/08/21 00:00 Pulse 92 03/08/21 00:00 Resp 16 03/08/21 00:00 BP 113/59 L 03/08/21 00:00 Pulse Ox 100 03/08/21 00:00 - Orders/Labs/Meds Orders: Medication Orders Acetaminophen (Acetaminophen 325 Mg Tab) 650 mg PO Q4H PRN PRN Reason: Pain (Mild 1-3)/fever Clonazepam (Clonazepam 0.5 Mg Tab) 0.5 mg PO Q6H PRN PRN Reason: Anxiety Fentanyl (Fentanyl 100 Mcg/2 Ml Sdv) 25 mcg IVPUSH Q2H PRN PRN Reason: severe pain Last Admin: 03/07/21 23:12 Dose: 25 mcg Documented by: Admin: 03/07/21 19:23 Dose: 25 mcg Documented by: Admin: 03/07/21 16:53 Dose: 25 mcg Documented by: Admin: 03/07/21 13:51 Dose: 25 mcg Documented by: Admin: 03/07/21 11:13 Dose: 25 mcg Documented by: Admin: 03/07/21 08:58 Dose: 25 mcg Documented by: Admin: 03/07/21 06:25 Dose: 25 mcg Documented by: Admin: 03/07/21 03:24 Dose: 25 mcg Documented by: NAZARIO Ferrous Sulfate (Ferrous Sulfate 325 Mg Tab) 325 mg PO DAILY [facility] Last Admin: 03/07/21 08:57 Dose: 325 mg Documented by: ELINA Folic Acid (Folic Acid 1 Mg Tab) 1 mg PO DAILY [facility] Last Admin: 03/07/21 08:57 Dose: 1 mg Documented by: ELINA Gabapentin (Gabapentin 100 Mg Cap) 200 mg PO BID [facility] Last Admin: 03/07/21 20:10 Dose: 200 mg Documented by: BLANCA Sodium Chloride (Normal Saline) 1,000 mls @ 75 mls/hr IV ASDIRECTED [facility] Last Admin: 03/07/21 16:48 Dose: 75 mls/hr Documented by: Infusion: 03/07/21 16:47 Dose: 75 mls/hr Documented by: Admin: 03/07/21 03:27 Dose: 75 mls/hr Documented by: NAZARIO Ceftriaxone Sodium 1 gm/ (Sodium Chloride) 50 mls @ 100 mls/hr IV Q24H [facility] Last Admin: 03/07/21 20:10 Dose: 100 mls/hr Documented by: BLANCA Ondansetron HCl (Ondansetron 4 Mg/2 Ml Sdv) 4 mg IVPUSH Q6H PRN PRN Reason: Nausea/Vomiting Last Admin: 03/07/21 19:30 Dose: 4 mg Documented by: BLANCA Oxybutynin Chloride (Oxybutynin 5 Mg Tab) 5 mg PO TID [facility] Last Admin: 03/07/21 20:10 Dose: 5 mg Documented by: Admin: 03/07/21 13:51 Dose: 5 mg Documented by: Admin: 03/07/21 08:57 Dose: 5 mg Documented by: ELINA Pantoprazole Sodium (Pantoprazole 40 Mg Tab.Cr) 40 mg PO BID@0600,2100 [facility] Last Admin: 03/07/21 20:10 Dose: 40 mg Documented by: Admin: 03/07/21 06:27 Dose: 40 mg Documented by: NAZARIO Tramadol HCl (Tramadol 50 Mg Tab) 100 mg PO Q4H PRN PRN Reason: Pain Last Admin: 03/08/21 00:25 Dose: 100 mg Documented by: Admin: 03/07/21 19:39 Dose: 100 mg Documented by: Admin: 03/07/21 15:25 Dose: 100 mg Documented by: Admin: 03/07/21 11:12 Dose: 100 mg Documented by: ELINA Trazodone HCl (Trazodone 50 Mg Tab) 50 mg PO BEDTIME [facility] Last Admin: 03/07/21 20:10 Dose: 50 mg Documented by: BLANCA Labs: Laboratory Tests 03/07/21 03/07/21 03/07/21 Range/Units 00:25 00:30 00:30 WBC 3.0 L (5.0-10.0) 10^3/uL RBC 3.61 L (4.2-5.4) 10^6/uL Hgb 9.1 L (12.0-16.0) g/dL Hct 29.8 L (37.0-47.0) % MCV 82.5 (80-100) fL MCH 25.2 L (27.0-34.0) pg MCHC 30.5 L (33.0-35.0) g/dL Plt Count 179 D (150-450) 10^3/uL Neut % (Auto) 57.8 (42.2-75.2) % Lymph % (Auto) 34.9 (20.5-50.1) % [place] % (Auto) 1.0 L (2-8) % Eos % (Auto) 6.0 H (1.0-3.0) % Baso % (Auto) 0.3 (0.0-1.0) % Add Manual Diff Yes Neutrophils % (Manual) 49 (42-75) % Band Neutrophils % 8 % Lymphocytes % (Manual) 39 (20-50) % Atypical Lymphs % 0 % Monocytes % (Manual) 1 L (2-8) % Eosinophils % (Manual) 3 (1-3) % Hypochromasia 1+ slight Poikilocytosis 1+ slight PT 11.2 (9.0-12.0) SEC INR 1.1 (0.9-1.2) Sodium (136-145) mmol/L Potassium (3.5-5.1) mmol/L Chloride (98-107) mmol/L Carbon Dioxide (21-32) mmol/L Anion Gap (7-13) mEq/L BUN (7-18) mg/dL Creatinine (0.55-1.02) mg/dL Est Cr Clr Drug Dosing Estimated GFR (MDRD) BUN/Creatinine Ratio (No establ ref range) Glucose (70-99) mg/dL Lactic Acid (0.4-2.0) mmol/L Calcium (8.5-10.1) mg/dL Total Bilirubin (0.2-1.0) mg/dL AST (15-37) U/L ALT (14-59) U/L Alkaline Phosphatase (46-116) U/L Total Protein (6.4-8.2) g/dL Albumin (3.4-5.0) g/dL Globulin Albumin/Globulin Ratio Urine Color Yellow (YELLOW) Urine Appearance Slightly cloudy (CLEAR) Urine pH 6.0 (5.0-9.0) Ur Specific [place] 1.015 (1.005-1.030) Urine Protein 100 H (NEGATIVE) Urine Glucose (UA) Negative (NEGATIVE) Urine Ketones Negative (NEGATIVE) Urine Occult Blood Large H (NEGATIVE) Urine Nitrite Positive H (NEGATIVE) Urine Bilirubin Negative (NEGATIVE) Urine Urobilinogen 0.2 (0.2-1.0) mg/dL Ur Leukocyte Esterase Moderate H (NEGATIVE) Urine RBC 0-5 (0-5) /HPF Urine WBC Semi-packed H (0-5/HPF) /HPF Ur Epithelial Cells Moderate H (NOT SEEN) /HPF Urine Bacteria Many H (0-FEW/HPF) /HPF SARS-CoV-2 RNA (BENNY) (NEGATIVE) 03/07/21 03/07/21 03/07/21 Range/Units 00:30 00:30 01:28 WBC (5.0-10.0) 10^3/uL RBC (4.2-5.4) 10^6/uL Hgb (12.0-16.0) g/dL Hct (37.0-47.0) % MCV (80-100) fL MCH (27.0-34.0) pg MCHC (33.0-35.0) g/dL Plt Count (150-450) 10^3/uL Neut % (Auto) (42.2-75.2) % Lymph % (Auto) (20.5-50.1) % [place] % (Auto) (2-8) % Eos % (Auto) (1.0-3.0) % Baso % (Auto) (0.0-1.0) % Add Manual Diff Neutrophils % (Manual) (42-75) % Band Neutrophils % % Lymphocytes % (Manual) (20-50) % Atypical Lymphs % % Monocytes % (Manual) (2-8) % Eosinophils % (Manual) (1-3) % Hypochromasia Poikilocytosis PT (9.0-12.0) SEC INR (0.9-1.2) Sodium 131 L (136-145) mmol/L Potassium 4.5 (3.5-5.1) mmol/L Chloride 98 (98-107) mmol/L Carbon Dioxide 21 (21-32) mmol/L Anion Gap 16.5 H (7-13) mEq/L BUN 28 H (7-18) mg/dL Creatinine 0.72 (0.55-1.02) mg/dL Est Cr Clr Drug Dosing TNP Estimated GFR (MDRD) > 60 BUN/Creatinine Ratio 38.9 (No establ ref range) Glucose 142 H (70-99) mg/dL Lactic Acid 0.8 (0.4-2.0) mmol/L Calcium 8.3 L (8.5-10.1) mg/dL Total Bilirubin 0.6 (0.2-1.0) mg/dL AST 23 (15-37) U/L ALT 34 (14-59) U/L Alkaline Phosphatase 166 H (46-116) U/L Total Protein 7.5 (6.4-8.2) g/dL Albumin 2.3 L (3.4-5.0) g/dL Globulin 5.2 Albumin/Globulin Ratio 0.44 Urine Color (YELLOW) Urine Appearance (CLEAR) Urine pH (5.0-9.0) Ur Specific [place] (1.005-1.030) Urine Protein (NEGATIVE) Urine Glucose (UA) (NEGATIVE) Urine Ketones (NEGATIVE) Urine Occult Blood (NEGATIVE) Urine Nitrite (NEGATIVE) Urine Bilirubin (NEGATIVE) Urine Urobilinogen (0.2-1.0) mg/dL Ur Leukocyte Esterase (NEGATIVE) Urine RBC (0-5) /HPF Urine WBC (0-5/HPF) /HPF Ur Epithelial Cells (NOT SEEN) /HPF Urine Bacteria (0-FEW/HPF) /HPF SARS-CoV-2 RNA (BENNY) Negative (NEGATIVE) Meds: Medications Generic Name Dose Route Start Last Admin Trade Name Shawnq PRN Reason Stop Dose Admin Acetaminophen 650 mg 03/07/21 03:09 Acetaminophen 325 Mg Tab PO Q4H PRN Pain (Mild 1-3)/fever Clonazepam 0.5 mg 03/07/21 03:05 Clonazepam 0.5 Mg Tab PO Q6H PRN Anxiety Fentanyl 25 mcg 03/07/21 03:07 03/07/21 23:12 Fentanyl 100 Mcg/2 Ml Sdv IVPUSH 25 mcg Q2H PRN Administration severe pain Ferrous Sulfate 325 mg 03/07/21 09:00 03/07/21 08:57 Ferrous Sulfate 325 Mg Tab PO 325 mg DAILY DAVID Administration Folic Acid 1 mg 03/07/21 09:00 03/07/21 08:57 Folic Acid 1 Mg Tab PO 1 mg DAILY DAVID Administration Gabapentin 200 mg 03/07/21 21:00 03/07/21 20:10 Gabapentin 100 Mg Cap PO 200 mg BID DAVID Administration Sodium Chloride 1,000 mls @ 75 mls/hr 03/07/21 03:15 03/07/21 16:48 Normal Saline IV 75 mls/hr ASDIRECTED DAVID Administration Ceftriaxone Sodium 1 gm/ 50 mls @ 100 mls/hr 03/07/21 21:00 03/07/21 20:10 Sodium Chloride IV 100 mls/hr Q24H DAVID Administration Ondansetron HCl 4 mg 03/07/21 11:20 03/07/21 19:30 Ondansetron 4 Mg/2 Ml Sdv IVPUSH 4 mg Q6H PRN Administration Nausea/Vomiting Oxybutynin Chloride 5 mg 03/07/21 09:00 03/07/21 20:10 Oxybutynin 5 Mg Tab PO 5 mg TID DAVID Administration Pantoprazole Sodium 40 mg 03/07/21 06:00 03/07/21 20:10 Pantoprazole 40 Mg Tab.Cr PO 40 mg BID@0600,2100 DAVID Administration Tramadol HCl 100 mg 03/07/21 03:05 03/08/21 00:25 Tramadol 50 Mg Tab PO 100 mg Q4H PRN Administration Pain Trazodone HCl 50 mg 03/07/21 21:00 03/07/21 20:10 Trazodone 50 Mg Tab PO 50 mg BEDTIME DAVID Administration Discontinued Medications Generic Name Dose Route Start Last Admin Trade Name Freq PRN Reason Stop Dose Admin Fentanyl 25 mcg 03/07/21 00:43 03/08/21 00:10 Fentanyl 100 Mcg/2 Ml Sdv IVPUSH 03/07/21 00:44 Not Given ONETIME ONE Protocol Gabapentin 100 mg 03/07/21 09:00 03/07/21 08:57 Gabapentin 100 Mg Cap PO 100 mg BID DAVID Administration Sodium Chloride 500 mls @ 15 mls/hr 03/07/21 00:15 03/07/21 00:52 Normal Saline IV 15 mls/hr .BOLUS DAVID Administration Ceftriaxone Sodium 1 gm/ 50 mls @ 100 mls/hr 03/07/21 01:29 03/07/21 02:08 Sodium Chloride IV 03/07/21 01:58 100 mls/hr ONETIME ONE Administration Morphine Sulfate 2 mg 03/07/21 00:44 03/07/21 00:51 Morphine 2 Mg/Ml Syringe IVPUSH 03/07/21 00:45 2 mg ONETIME ONE Administration Ondansetron HCl 4 mg 03/07/21 00:45 03/07/21 00:52 Ondansetron 4 Mg/2 Ml Sdv IVPUSH 03/07/21 00:46 4 mg ONETIME ONE Administration Pantoprazole Sodium 40 mg 03/07/21 09:00 Pantoprazole 40 Mg Tab.Cr PO DAILY DAVID - Re-Assessments/Exams Free Text/Narrative Re-Assessment/Exam: 03/07/21 01:42 Pain decreased 5/10. Resting eyes closed, arouses easily to voice. 03/07/21 01:46 Dr Currie accepting patient for admission, Metastatic Cancer, weakness, gastrointestinal bleeding, UTI Departure - Departure Time of Disposition: 02:00 Disposition: Admitted As Inpatient 65 Condition: Fair, Undetermined Clinical Impression: Lung cancer metastatic to bone, Positive occult stool blood test, Weakness - Discharge Information *PRESCRIPTION DRUG MONITORING PROGRAM REVIEWED*: No *COPY OF PRESCRIPTION DRUG MONITORING REPORT IN PATIENT MEMO: No
[2021-03-07] MEDS ORDERED: fentaNYL 100 MCG/2 ML SDV IVPUSH ONE (00:43)
[2021-03-07] MEDS ORDERED: Morphine 2 MG/ML SYRINGE IVPUSH ONE (00:44)
[2021-03-07] MEDS ORDERED: Ondansetron 4 MG/2 ML SDV IVPUSH ONE (00:45)
--- NOTE | 2021-03-07 00:50 | CR ---
PROCEDURE INFORMATION: Exam: XR Chest Exam date and time: 03/07/2021 12:15 AM Age: 70 years old Clinical indication: Other: Productive cough/lung CA w/mets TECHNIQUE: Imaging protocol: XR of the chest. Views: 1 view. COMPARISON: CT Chest wo Cont 01/18/2021 3:35 PM FINDINGS: Lungs: Persistent masslike density right upper lobe shows no substantial improvement as compared with 01/17/2021. The left lung is clear. There is minor nonspecific patchy linear density at right lung base which could be atelectatic, or inflammatory. Pleural spaces: No pleural effusion. No pneumothorax. Heart/Mediastinum: The heart is not enlarged. Bones/joints: No acute bony findings are identified. IMPRESSION: 1. Persistent masslike lesion right upper lobe shows no improvement as compared to prior study 01/17/2021. Consider PET-CT. Consider biopsy. 2. No acute infiltrate seen.
[2021-03-07 00:56] LABS: ANION GAP 16.5 mEq/L (7-13); CHLORIDE,CL 98 mmol/L (98-107); SODIUM,NA 131 mmol/L (136-145)
[2021-03-07] MEDS ORDERED: cefTRIAXone 1 GM in Sodium Chloride 0.9% 50 ML IV ONE (01:29)
--- NOTE | 2021-03-07 03:16 | PCM.HP ---
H&P History of Present Illness - General Date of Service: 03/07/21 Admit Problem/Dx: Admission Diagnosis/Problem Admission Diagnosis/Problem Cancer of right lung Source of Information: Patient - History of Present Illness Initial Comments - Free Text/Narative: h/o dyslipidemia, lung ca with mets presented with bloody diarrhea, vomiting blood started 1 day prior to admission no associated abd pain has mild chronic sob chronic pain in legs, chest, no fever has been living alone and can not take care of herself Generalized Pain Score (Numeric/FACES): 10 - Related Data Allergies/Adverse Reactions: Allergies Allergy/AdvReac Type Severity Reaction Status Date / Time No Known Allergies Allergy Verified 10/15/18 07:29 Home Medications: Home Meds Oxybutynin 5 mg PO TID 08/20/14 [History] atorvaSTATin [Lipitor] 20 mg PO DAILY 03/14/16 [History] Pantoprazole [ProTONIX] 40 mg PO DAILY #30 tab.cr 03/22/17 [Rx] Gabapentin [Neurontin] 100 mg PO BID 01/18/21 [History] traMADol [Ultram] 100 mg PO Q4H PRN 01/18/21 [History] ClonazePAM [KlonoPIN] 0.5 mg PO DAILY PRN 03/07/21 [History] Ferrous Sulfate [Ferosul] 325 mg PO DAILY 03/07/21 [History] Folic Acid 1 mg PO DAILY 03/07/21 [History] Ondansetron [Zofran ODT] 4 mg PO Q6H PRN 03/07/21 [History] traZODone 50 mg PO BEDTIME 03/07/21 [History] Past Medical History HEENT History: Reports: Impaired Vision Cardiovascular History: Reports: Angina, CAD, High Cholesterol, Hypertension, IN, Stents, Other (See Below) Other Cardiovascular History: CAROTID STENOSIS, LEFT. RIGHT CAROTID BRUIT Respiratory History: Reports: None Gastrointestinal History: Reports: GERD Genitourinary History: Reports: Chronic Renal Insuffiency, Urinary Incontinence Other Genitourinary History: Stage 3 kidney failure. UROLITHIASIS [employer] History: Reports: , Other (See Below) Other OB/BYN History: HX OF THIN BASEMENT MEMBRANE DISEASE Musculoskeletal History: Reports: Arthritis, Back Pain, Chronic Neurological History: Reports: Migraines, Neuropathy, Diabetic Other Neuro History: in Psychiatric History: Reports: Anxiety, Depression Endocrine/Metabolic History: Reports: Diabetes, Type II Hematologic History: Reports: None Immunologic History: Reports: None Oncologic (Cancer) History: Reports: None Dermatologic History: Reports: None - Infectious Disease History Infectious Disease History: Reports: Chicken Pox, Measles, Mumps - Past Surgical History Head Surgeries/Procedures: Reports: None HEENT Surgical History: Reports: None Cardiovascular Surgical History: Reports: Carotid Endarterectomy, Coronary Artery Stent, Other (See Below) Other Cardiovascular Surgeries/Procedures: ANGIOGRAM Respiratory Surgical History: Reports: None GI Surgical History: Reports: Colonoscopy Female Surgical History: Reports: Cystoscopy, Hysterectomy, Salpingo- Oophorectomy Musculoskeletal Surgical History: Reports: Shoulder Surgery, Other (See Below) Other Musculoskeletal Surgeries/Procedures:: disks in back and neck surgery Social & Family History - Family History Family Medical History: No Pertinent Family History - Tobacco Use Tobacco Use Status *Q: Former Tobacco User Used Tobacco, but Quit: Yes Month/Year Tobacco Last Used: - Caffeine Use Caffeine Use: Reports: None Other Caffeine Use: 3 cups daily - Recreational Drug Use Recreational Drug Use: No H&P Review of Systems - Review of Systems: Review Of Systems: See Below General: Reports: Malaise, Weakness. Denies: Fever, Chills Pulmonary: Reports: Shortness of Breath, Pleuritic Chest Pain, Cough. Denies: Wheezing Cardiovascular: Reports: Chest Pain. Denies: Edema Gastrointestinal: Reports: Anorexia, Bloody Stool, Diarrhea, Nausea, Vomiting. Denies: Abdominal Pain Genitourinary: Reports: Frequency Psychiatric: Denies: Confusion Exam - Exam Exam: See Below - Vital Signs Vital Signs: Last Vital Signs Temp 97.7 F 03/07/21 00:05 Pulse 102 H 03/07/21 00:05 Resp 16 03/07/21 00:05 BP 150/71 H 03/07/21 00:05 Pulse Ox 100 03/07/21 00:05 Weight: 110 lb 6.4 oz - Exam General: Alert, Oriented, Other (cachectic) Neck: Supple Lungs: Normal Respiratory Effort, Decreased Breath Sounds Cardiovascular: Regular Rate, Regular Rhythm GI/Abdominal Exam: Normal Bowel Sounds, Soft, Non-Tender Extremities: No Pedal Edema Skin: Warm, Dry Neuro Extensive - Mental Status: Alert, Oriented x3, Normal Cognition. No: Disorientation to Person, Disorientation to Place, Disorientation to Time Psychiatric: Alert, Normal Affect, Anxious - Patient Data Lab Results Last 24 hrs: Laboratory Results - last 24 hr 03/07/21 03/07/21 03/07/21 Range/Units 00:25 00:30 00:30 WBC 3.0 L (5.0-10.0) 10^3/uL RBC 3.61 L (4.2-5.4) 10^6/uL Hgb 9.1 L (12.0-16.0) g/dL Hct 29.8 L (37.0-47.0) % MCV 82.5 (80-100) fL MCH 25.2 L (27.0-34.0) pg MCHC 30.5 L (33.0-35.0) g/dL Plt Count 179 D (150-450) 10^3/uL Neut % (Auto) 57.8 (42.2-75.2) % Lymph % (Auto) 34.9 (20.5-50.1) % [place] % (Auto) 1.0 L (2-8) % Eos % (Auto) 6.0 H (1.0-3.0) % Baso % (Auto) 0.3 (0.0-1.0) % Add Manual Diff Yes Neutrophils % (Manual) 49 (42-75) % Band Neutrophils % 8 % Lymphocytes % (Manual) 39 (20-50) % Atypical Lymphs % 0 % Monocytes % (Manual) 1 L (2-8) % Eosinophils % (Manual) 3 (1-3) % Hypochromasia 1+ slight Poikilocytosis 1+ slight PT 11.2 (9.0-12.0) SEC INR 1.1 (0.9-1.2) Sodium (136-145) mmol/L Potassium (3.5-5.1) mmol/L Chloride (98-107) mmol/L Carbon Dioxide (21-32) mmol/L Anion Gap (7-13) mEq/L BUN (7-18) mg/dL Creatinine (0.55-1.02) mg/dL Est Cr Clr Drug Dosing Estimated GFR (MDRD) BUN/Creatinine Ratio (No establ ref range) Glucose (70-99) mg/dL Lactic Acid (0.4-2.0) mmol/L Calcium (8.5-10.1) mg/dL Total Bilirubin (0.2-1.0) mg/dL AST (15-37) U/L ALT (14-59) U/L Alkaline Phosphatase (46-116) U/L Total Protein (6.4-8.2) g/dL Albumin (3.4-5.0) g/dL Globulin Albumin/Globulin Ratio Urine Color Yellow (YELLOW) Urine Appearance Slightly cloudy (CLEAR) Urine pH 6.0 (5.0-9.0) Ur Specific Barton 1.015 (1.005-1.030) Urine Protein 100 H (NEGATIVE) Urine Glucose (UA) Negative (NEGATIVE) Urine Ketones Negative (NEGATIVE) Urine Occult Blood Large H (NEGATIVE) Urine Nitrite Positive H (NEGATIVE) Urine Bilirubin Negative (NEGATIVE) Urine Urobilinogen 0.2 (0.2-1.0) mg/dL Ur Leukocyte Esterase Moderate H (NEGATIVE) Urine RBC 0-5 (0-5) /HPF Urine WBC Semi-packed H (0-5/HPF) /HPF Ur Epithelial Cells Moderate H (NOT SEEN) /HPF Urine Bacteria Many H (0-FEW/HPF) /HPF SARS-CoV-2 RNA (BENNY) (NEGATIVE) 03/07/21 03/07/21 03/07/21 Range/Units 00:30 00:30 01:28 WBC (5.0-10.0) 10^3/uL RBC (4.2-5.4) 10^6/uL Hgb (12.0-16.0) g/dL Hct (37.0-47.0) % MCV (80-100) fL MCH (27.0-34.0) pg MCHC (33.0-35.0) g/dL Plt Count (150-450) 10^3/uL Neut % (Auto) (42.2-75.2) % Lymph % (Auto) (20.5-50.1) % [place] % (Auto) (2-8) % Eos % (Auto) (1.0-3.0) % Baso % (Auto) (0.0-1.0) % Add Manual Diff Neutrophils % (Manual) (42-75) % Band Neutrophils % % Lymphocytes % (Manual) (20-50) % Atypical Lymphs % % Monocytes % (Manual) (2-8) % Eosinophils % (Manual) (1-3) % Hypochromasia Poikilocytosis PT (9.0-12.0) SEC INR (0.9-1.2) Sodium 131 L (136-145) mmol/L Potassium 4.5 (3.5-5.1) mmol/L Chloride 98 (98-107) mmol/L Carbon Dioxide 21 (21-32) mmol/L Anion Gap 16.5 H (7-13) mEq/L BUN 28 H (7-18) mg/dL Creatinine 0.72 (0.55-1.02) mg/dL Est Cr Clr Drug Dosing TNP Estimated GFR (MDRD) > 60 BUN/Creatinine Ratio 38.9 (No establ ref range) Glucose 142 H (70-99) mg/dL Lactic Acid 0.8 (0.4-2.0) mmol/L Calcium 8.3 L (8.5-10.1) mg/dL Total Bilirubin 0.6 (0.2-1.0) mg/dL AST 23 (15-37) U/L ALT 34 (14-59) U/L Alkaline Phosphatase 166 H (46-116) U/L Total Protein 7.5 (6.4-8.2) g/dL Albumin 2.3 L (3.4-5.0) g/dL Globulin 5.2 Albumin/Globulin Ratio 0.44 Urine Color (YELLOW) Urine Appearance (CLEAR) Urine pH (5.0-9.0) Ur Specific Barton (1.005-1.030) Urine Protein (NEGATIVE) Urine Glucose (UA) (NEGATIVE) Urine Ketones (NEGATIVE) Urine Occult Blood (NEGATIVE) Urine Nitrite (NEGATIVE) Urine Bilirubin (NEGATIVE) Urine Urobilinogen (0.2-1.0) mg/dL Ur Leukocyte Esterase (NEGATIVE) Urine RBC (0-5) /HPF Urine WBC (0-5/HPF) /HPF Ur Epithelial Cells (NOT SEEN) /HPF Urine Bacteria (0-FEW/HPF) /HPF SARS-CoV-2 RNA (BENNY) Negative (NEGATIVE) Result Diagrams: 03/07/21 00:30 03/07/21 00:30 Landry Results Last 24 hrs: Microbiology 03/07/21 01:00 Stool Occult Blood (LANDRY) - Final Stool / Feces - Problem List (1) GI bleed SNOMED Code(s): 43372537 ICD Code: K92.2 - GASTROINTESTINAL HEMORRHAGE, UNSPECIFIED Status: Acute Current Visit: Yes (2) Hyperlipidemia SNOMED Code(s): 55618169 ICD Code: E78.5 - HYPERLIPIDEMIA, UNSPECIFIED Status: Acute Current Visit: No Onset Date: 08/20/14 (3) UTI (urinary tract infection) SNOMED Code(s): 25626898 ICD Code: N39.0 - URINARY TRACT INFECTION, SITE NOT SPECIFIED Status: Acute Current Visit: No Qualifiers: Urinary tract infection type: acute cystitis Hematuria presence: with hematuria Qualified Code(s): N30.01 - Acute cystitis with hematuria Problem List Initiated/Reviewed/Updated: Yes Orders Last 24hrs: Active Orders 24 hr Category Date Time Status Admission Diagnosis [ADT] Stat ADT 03/07/21 01:48 Ordered Admission Status [Patient Status] [ADT] Stat ADT 03/07/21 01:48 Active Antiembolic Devices [RC] PER UNIT ROUTINE Care 03/07/21 03:10 Ordered Oxygen Therapy [RC] PRN Care 03/07/21 03:10 Ordered Up With Assistance [RC] ASDIRECTED Care 03/07/21 03:09 Ordered VTE/DVT Education [RC] PER UNIT ROUTINE Care 03/07/21 03:10 Ordered Vital Signs [RC] Q4H Care 03/07/21 03:10 Ordered OT Evaluation and Treatment [CONS] Routine Cons 03/07/21 03:05 Ordered PT Evaluation and Treatment [CONS] Routine Cons 03/07/21 03:05 Ordered Clear Liquid Diet [DIET] Diet 03/07/21 Breakfast Ordered BASIC METABOLIC PANEL,BMP [CHEM] AM Lab 03/07/21 05:11 Ordered BASIC METABOLIC PANEL,BMP [CHEM] AM Lab 03/08/21 05:11 Ordered BASIC METABOLIC PANEL,BMP [CHEM] AM Lab 03/09/21 05:11 Ordered BASIC METABOLIC PANEL,BMP [CHEM] AM Lab 03/10/21 05:11 Ordered BASIC METABOLIC PANEL,BMP [CHEM] AM Lab 03/11/21 05:11 Ordered BASIC METABOLIC PANEL,BMP [CHEM] AM Lab 03/12/21 05:11 Ordered BASIC METABOLIC PANEL,BMP [CHEM] AM Lab 03/13/21 05:11 Ordered CBC WITH AUTO DIFF [HEME] AM Lab 03/07/21 05:11 Ordered CBC WITH AUTO DIFF [HEME] AM Lab 03/08/21 05:11 Ordered CBC WITH AUTO DIFF [HEME] AM Lab 03/09/21 05:11 Ordered CBC WITH AUTO DIFF [HEME] AM Lab 03/10/21 05:11 Ordered CBC WITH AUTO DIFF [HEME] AM Lab 03/11/21 05:11 Ordered CBC WITH AUTO DIFF [HEME] AM Lab 03/12/21 05:11 Ordered CLOSTRIDIUM DIFFICILE TOX RFLX [MREF] Routine Lab 03/07/21 03:02 Ordered CULTURE STOOL [RM] Routine Lab 03/07/21 03:03 Ordered CULTURE URINE [RM] Stat Lab 03/07/21 00:25 Received Acetaminophen [TylenoL] Med 03/07/21 03:09 Ordered 650 mg PO Q4H PRN ClonazePAM [KlonoPIN] Med 03/07/21 03:05 Ordered 0.5 mg PO Q6H PRN Ferrous Sulfate Med 03/07/21 09:00 Ordered 325 mg PO DAILY Folic Acid Med 03/07/21 09:00 Ordered 1 mg PO DAILY Gabapentin [Neurontin] Med 03/07/21 09:00 Ordered 100 mg PO BID Oxybutynin Med 03/07/21 09:00 Ordered 5 mg PO TID Pantoprazole [ProTONIX] Med 03/07/21 09:00 Ordered 40 mg PO BID Sodium Chloride 0.9% @ 75 MLS/HR(1000ml) Med 03/07/21 03:15 Ordered Sodium Chloride 0.9% [Normal Saline] 1,000 ml IV ASDIRECTED cefTRIAXone [Rocephin] 1 gm Med 03/07/21 03:15 Ordered Sodium Chloride 0.9% [Normal Saline AdvBag] 50 ml IV Q24H fentaNYL [Sublimaze] Med 03/07/21 03:07 Ordered 25 mcg IVPUSH Q2H PRN traMADol [Ultram] Med 03/07/21 03:05 Ordered 100 mg PO Q4H PRN traZODone Med 03/07/21 21:00 Ordered 50 mg PO BEDTIME Isolation [COMM] Stat Oth 03/07/21 03:03 Ordered Sequential Compression Device [OM.PC] Per Unit Routine Oth 03/07/21 03:10 Ordered Code Status [Resuscitation Status] Stat Resus Stat 03/07/21 00:08 Ordered Medication Orders Acetaminophen (Acetaminophen 325 Mg Tab) 650 mg PO Q4H PRN PRN Reason: Pain (Mild 1-3)/fever Clonazepam (Clonazepam 0.5 Mg Tab) 0.5 mg PO Q6H PRN PRN Reason: Anxiety Fentanyl (Fentanyl 100 Mcg/2 Ml Sdv) 25 mcg IVPUSH Q2H PRN PRN Reason: severe pain Ferrous Sulfate (Ferrous Sulfate 325 Mg Tab) 325 mg PO DAILY DAVID Folic Acid (Folic Acid 1 Mg Tab) 1 mg PO DAILY DAVID Gabapentin (Gabapentin 100 Mg Cap) 100 mg PO BID DAVID Sodium Chloride (Normal Saline) 1,000 mls @ 75 mls/hr IV ASDIRECTED DAVID Ceftriaxone Sodium 1 gm/ (Sodium Chloride) 50 mls @ 100 mls/hr IV Q24H DAVID Oxybutynin Chloride (Oxybutynin 5 Mg Tab) 5 mg PO TID DAVID Pantoprazole Sodium (Pantoprazole 40 Mg Tab.Cr) 40 mg PO BID DAVID Tramadol HCl (Tramadol 50 Mg Tab) 100 mg PO Q4H PRN PRN Reason: Pain Trazodone HCl (Trazodone 50 Mg Tab) 50 mg PO BEDTIME [facility] Assessment/Plan Comment:: h/o metastatic lung ca presented with bloody diarrhea, weakness Gi bleed lower gi Bloody diarrhea Check culture Check c diff Protonix bid Anemia A combination of anemia of chronic disease, anemia from acute blood loss and anemia due to chemotherapy Will monitor and transfuse as needed Cont folic acid, iron Hyponatremia Will treat with IVF Uti Obtain urine cx Treat with ceftriaxone Metastatic lung ca Does not want further tx Pain control Cont Neurontin, tramadol, trazodone Add iv fentanyl for severe pain Generalized weakness Pt/ot Sw consult Opted for DNR/DNI code status on admission Dvt prophylaxis Scd-s
[2021-03-07] MEDS: fentaNYL 100 MCG/2 ML SDV IVPUSH PRN ×8 (03:24→23:12)
[2021-03-07] MEDS: Sodium Chloride 0.9% 1,000 ML IV SCH ×2 (03:27→16:48)
[2021-03-07] MEDS: Pantoprazole 40 MG Tab.CR PO SCH ×2 (06:27→20:10)
[2021-03-07 07:13] LABS: ANION GAP 15.8 mEq/L (7-13); CHLORIDE,CL 98 mmol/L (98-107); SODIUM,NA 130 mmol/L (136-145)
[2021-03-07] MEDS: Folic Acid 1 MG Tab PO SCH (08:57)
[2021-03-07] MEDS: Ferrous Sulfate 325 MG Tab PO SCH (08:57)
[2021-03-07] MEDS: Oxybutynin 5 MG Tab PO SCH ×3 (08:57→20:10)
[2021-03-07] MEDS ORDERED: Pantoprazole 40 MG Tab.CR PO SCH (09:00)
[2021-03-07] MEDS ORDERED: Gabapentin 100 MG Cap PO SCH (09:00)
[2021-03-07] MEDS: traMADol 50 MG Tab PO PRN ×3 (11:12→19:39)
--- NOTE | 2021-03-07 11:26 | PCM.PN ---
- General Info Date of Service: 03/07/21 Admission Dx/Problem (Free Text): Admission Diagnosis/Problem Admission Diagnosis/Problem Cancer of right lung Functional Status: Denies: Pain Controlled, Ambulating - Review of Systems General: Reports: Weakness Pulmonary: Reports: Pleuritic Chest Pain. Denies: Shortness of Breath, Wheezing Cardiovascular: Reports: Chest Pain. Denies: Edema Gastrointestinal: Reports: Other (bloody bm-s). Denies: Abdominal Pain Neurological: Denies: Confusion - Patient Data Vitals - Most Recent: Last Vital Signs Temp 97.8 F 03/07/21 07:36 Pulse 115 H 03/07/21 07:36 Resp 20 03/07/21 07:36 BP 125/94 H 03/07/21 07:36 Pulse Ox 100 03/07/21 07:36 Weight - Most Recent: 109 lb I&O - Last 24 Hours: Intake & Output 03/06/21 03/07/21 03/07/21 22:59 06:59 14:59 Intake Total 480 Output Total 700 Balance -220 Lab Results Last 24 Hours: Laboratory Results - last 24 hr 03/07/21 03/07/21 03/07/21 Range/Units 00:25 00:30 00:30 WBC 3.0 L (5.0-10.0) 10^3/uL RBC 3.61 L (4.2-5.4) 10^6/uL Hgb 9.1 L (12.0-16.0) g/dL Hct 29.8 L (37.0-47.0) % MCV 82.5 (80-100) fL MCH 25.2 L (27.0-34.0) pg MCHC 30.5 L (33.0-35.0) g/dL Plt Count 179 D (150-450) 10^3/uL Neut % (Auto) 57.8 (42.2-75.2) % Lymph % (Auto) 34.9 (20.5-50.1) % Rooks % (Auto) 1.0 L (2-8) % Eos % (Auto) 6.0 H (1.0-3.0) % Baso % (Auto) 0.3 (0.0-1.0) % Add Manual Diff Yes Neutrophils % (Manual) 49 (42-75) % Band Neutrophils % 8 % Lymphocytes % (Manual) 39 (20-50) % Atypical Lymphs % 0 % Monocytes % (Manual) 1 L (2-8) % Eosinophils % (Manual) 3 (1-3) % Hypochromasia 1+ slight Poikilocytosis 1+ slight PT 11.2 (9.0-12.0) SEC INR 1.1 (0.9-1.2) Sodium (136-145) mmol/L Potassium (3.5-5.1) mmol/L Chloride (98-107) mmol/L Carbon Dioxide (21-32) mmol/L Anion Gap (7-13) mEq/L BUN (7-18) mg/dL Creatinine (0.55-1.02) mg/dL Est Cr Clr Drug Dosing Estimated GFR (MDRD) BUN/Creatinine Ratio (No establ ref range) Glucose (70-99) mg/dL Lactic Acid (0.4-2.0) mmol/L Calcium (8.5-10.1) mg/dL Total Bilirubin (0.2-1.0) mg/dL AST (15-37) U/L ALT (14-59) U/L Alkaline Phosphatase (46-116) U/L Total Protein (6.4-8.2) g/dL Albumin (3.4-5.0) g/dL Globulin Albumin/Globulin Ratio Urine Color Yellow (YELLOW) Urine Appearance Slightly cloudy (CLEAR) Urine pH 6.0 (5.0-9.0) Ur Specific [place] 1.015 (1.005-1.030) Urine Protein 100 H (NEGATIVE) Urine Glucose (UA) Negative (NEGATIVE) Urine Ketones Negative (NEGATIVE) Urine Occult Blood Large H (NEGATIVE) Urine Nitrite Positive H (NEGATIVE) Urine Bilirubin Negative (NEGATIVE) Urine Urobilinogen 0.2 (0.2-1.0) mg/dL Ur Leukocyte Esterase Moderate H (NEGATIVE) Urine RBC 0-5 (0-5) /HPF Urine WBC Semi-packed H (0-5/HPF) /HPF Ur Epithelial Cells Moderate H (NOT SEEN) /HPF Urine Bacteria Many H (0-FEW/HPF) /HPF SARS-CoV-2 RNA (BENNY) (NEGATIVE) 03/07/21 03/07/21 03/07/21 Range/Units 00:30 00:30 01:28 WBC (5.0-10.0) 10^3/uL RBC (4.2-5.4) 10^6/uL Hgb (12.0-16.0) g/dL Hct (37.0-47.0) % MCV (80-100) fL MCH (27.0-34.0) pg MCHC (33.0-35.0) g/dL Plt Count (150-450) 10^3/uL Neut % (Auto) (42.2-75.2) % Lymph % (Auto) (20.5-50.1) % Rooks % (Auto) (2-8) % Eos % (Auto) (1.0-3.0) % Baso % (Auto) (0.0-1.0) % Add Manual Diff Neutrophils % (Manual) (42-75) % Band Neutrophils % % Lymphocytes % (Manual) (20-50) % Atypical Lymphs % % Monocytes % (Manual) (2-8) % Eosinophils % (Manual) (1-3) % Hypochromasia Poikilocytosis PT (9.0-12.0) SEC INR (0.9-1.2) Sodium 131 L (136-145) mmol/L Potassium 4.5 (3.5-5.1) mmol/L Chloride 98 (98-107) mmol/L Carbon Dioxide 21 (21-32) mmol/L Anion Gap 16.5 H (7-13) mEq/L BUN 28 H (7-18) mg/dL Creatinine 0.72 (0.55-1.02) mg/dL Est Cr Clr Drug Dosing TNP Estimated GFR (MDRD) > 60 BUN/Creatinine Ratio 38.9 (No establ ref range) Glucose 142 H (70-99) mg/dL Lactic Acid 0.8 (0.4-2.0) mmol/L Calcium 8.3 L (8.5-10.1) mg/dL Total Bilirubin 0.6 (0.2-1.0) mg/dL AST 23 (15-37) U/L ALT 34 (14-59) U/L Alkaline Phosphatase 166 H (46-116) U/L Total Protein 7.5 (6.4-8.2) g/dL Albumin 2.3 L (3.4-5.0) g/dL Globulin 5.2 Albumin/Globulin Ratio 0.44 Urine Color (YELLOW) Urine Appearance (CLEAR) Urine pH (5.0-9.0) Ur Specific [place] (1.005-1.030) Urine Protein (NEGATIVE) Urine Glucose (UA) (NEGATIVE) Urine Ketones (NEGATIVE) Urine Occult Blood (NEGATIVE) Urine Nitrite (NEGATIVE) Urine Bilirubin (NEGATIVE) Urine Urobilinogen (0.2-1.0) mg/dL Ur Leukocyte Esterase (NEGATIVE) Urine RBC (0-5) /HPF Urine WBC (0-5/HPF) /HPF Ur Epithelial Cells (NOT SEEN) /HPF Urine Bacteria (0-FEW/HPF) /HPF SARS-CoV-2 RNA (BENNY) Negative (NEGATIVE) 03/07/21 03/07/21 Range/Units 06:10 06:10 WBC 1.5 L (5.0-10.0) 10^3/uL RBC 3.07 L (4.2-5.4) 10^6/uL Hgb 7.8 L (12.0-16.0) g/dL Hct 25.7 L (37.0-47.0) % MCV 83.7 (80-100) fL MCH 25.4 L (27.0-34.0) pg MCHC 30.4 L (33.0-35.0) g/dL Plt Count 147 L (150-450) 10^3/uL Neut % (Auto) 44.4 (42.2-75.2) % Lymph % (Auto) 44.4 (20.5-50.1) % Rooks % (Auto) 1.3 L (2-8) % Eos % (Auto) 9.2 H (1.0-3.0) % Baso % (Auto) 0.7 (0.0-1.0) % Add Manual Diff Neutrophils % (Manual) (42-75) % Band Neutrophils % % Lymphocytes % (Manual) (20-50) % Atypical Lymphs % % Monocytes % (Manual) (2-8) % Eosinophils % (Manual) (1-3) % Hypochromasia Poikilocytosis PT (9.0-12.0) SEC INR (0.9-1.2) Sodium 130 L (136-145) mmol/L Potassium 3.8 (3.5-5.1) mmol/L Chloride 98 (98-107) mmol/L Carbon Dioxide 20 L (21-32) mmol/L Anion Gap 15.8 H (7-13) mEq/L BUN 24 H (7-18) mg/dL Creatinine 0.72 (0.55-1.02) mg/dL Est Cr Clr Drug Dosing 53.58 Estimated GFR (MDRD) > 60 BUN/Creatinine Ratio (No establ ref range) Glucose 255 H (70-99) mg/dL Lactic Acid (0.4-2.0) mmol/L Calcium 7.5 L (8.5-10.1) mg/dL Total Bilirubin (0.2-1.0) mg/dL AST (15-37) U/L ALT (14-59) U/L Alkaline Phosphatase (46-116) U/L Total Protein (6.4-8.2) g/dL Albumin (3.4-5.0) g/dL Globulin Albumin/Globulin Ratio Urine Color (YELLOW) Urine Appearance (CLEAR) Urine pH (5.0-9.0) Ur Specific [place] (1.005-1.030) Urine Protein (NEGATIVE) Urine Glucose (UA) (NEGATIVE) Urine Ketones (NEGATIVE) Urine Occult Blood (NEGATIVE) Urine Nitrite (NEGATIVE) Urine Bilirubin (NEGATIVE) Urine Urobilinogen (0.2-1.0) mg/dL Ur Leukocyte Esterase (NEGATIVE) Urine RBC (0-5) /HPF Urine WBC (0-5/HPF) /HPF Ur Epithelial Cells (NOT SEEN) /HPF Urine Bacteria (0-FEW/HPF) /HPF SARS-CoV-2 RNA (BENNY) (NEGATIVE) [facility] Results Last 24 Hours: Microbiology 03/07/21 01:00 Stool Occult Blood (LANDRY) - Final Stool / Feces Med Orders - Current: Current Medications Acetaminophen (Acetaminophen 325 Mg Tab) 650 mg PO Q4H PRN PRN Reason: Pain (Mild 1-3)/fever Clonazepam (Clonazepam 0.5 Mg Tab) 0.5 mg PO Q6H PRN PRN Reason: Anxiety Fentanyl (Fentanyl 100 Mcg/2 Ml Sdv) 25 mcg IVPUSH Q2H PRN PRN Reason: severe pain Last Admin: 03/07/21 11:13 Dose: 25 mcg Documented by: Ferrous Sulfate (Ferrous Sulfate 325 Mg Tab) 325 mg PO DAILY [facility]ID Last Admin: 03/07/21 08:57 Dose: 325 mg Documented by: Folic Acid (Folic Acid 1 Mg Tab) 1 mg PO DAILY [facility] Last Admin: 03/07/21 08:57 Dose: 1 mg Documented by: Gabapentin (Gabapentin 100 Mg Cap) 100 mg PO BID [facility] Last Admin: 03/07/21 08:57 Dose: 100 mg Documented by: Sodium Chloride (Normal Saline) 1,000 mls @ 75 mls/hr IV ASDIRECTED [facility] Last Admin: 03/07/21 03:27 Dose: 75 mls/hr Documented by: Ceftriaxone Sodium 1 gm/ (Sodium Chloride) 50 mls @ 100 mls/hr IV Q24H [facility] Ondansetron HCl (Ondansetron 4 Mg/2 Ml Sdv) 4 mg IVPUSH Q6H PRN PRN Reason: Nausea/Vomiting Oxybutynin Chloride (Oxybutynin 5 Mg Tab) 5 mg PO TID [facility] Last Admin: 03/07/21 08:57 Dose: 5 mg Documented by: Pantoprazole Sodium (Pantoprazole 40 Mg Tab.Cr) 40 mg PO BID@0600,2100 [facility] Last Admin: 03/07/21 06:27 Dose: 40 mg Documented by: Tramadol HCl (Tramadol 50 Mg Tab) 100 mg PO Q4H PRN PRN Reason: Pain Last Admin: 03/07/21 11:12 Dose: 100 mg Documented by: Trazodone HCl (Trazodone 50 Mg Tab) 50 mg PO BEDTIME [facility] Discontinued Medications Fentanyl (Fentanyl 100 Mcg/2 Ml Sdv) 25 mcg IVPUSH ONETIME ONE; Protocol Stop: 03/07/21 00:44 Sodium Chloride (Normal Saline) 500 mls @ 15 mls/hr IV .BOLUS [facility] Last Admin: 03/07/21 00:52 Dose: 15 mls/hr Documented by: Ceftriaxone Sodium 1 gm/ (Sodium Chloride) 50 mls @ 100 mls/hr IV ONETIME ONE Stop: 03/07/21 01:58 Last Admin: 03/07/21 02:08 Dose: 100 mls/hr Documented by: Morphine Sulfate (Morphine 2 Mg/Ml Syringe) 2 mg IVPUSH ONETIME ONE Stop: 03/07/21 00:45 Last Admin: 03/07/21 00:51 Dose: 2 mg Documented by: Ondansetron HCl (Ondansetron 4 Mg/2 Ml Sdv) 4 mg IVPUSH ONETIME ONE Stop: 03/07/21 00:46 Last Admin: 03/07/21 00:52 Dose: 4 mg Documented by: Pantoprazole Sodium (Pantoprazole 40 Mg Tab.Cr) 40 mg PO DAILY DAVID - Exam General: Alert, Oriented, Other (cachectic) Lungs: Clear to Auscultation, Normal Respiratory Effort Cardiovascular: Regular Rate, Regular Rhythm GI/Abdominal Exam: Normal Bowel Sounds, Soft, Non-Tender Extremities: No Pedal Edema Psy/Mental Status: Alert, Anxious - Patient Data Lab Results Last 24 hrs: Laboratory Results - last 24 hr 03/07/21 03/07/21 03/07/21 Range/Units 00:25 00:30 00:30 WBC 3.0 L (5.0-10.0) 10^3/uL RBC 3.61 L (4.2-5.4) 10^6/uL Hgb 9.1 L (12.0-16.0) g/dL Hct 29.8 L (37.0-47.0) % MCV 82.5 (80-100) fL MCH 25.2 L (27.0-34.0) pg MCHC 30.5 L (33.0-35.0) g/dL Plt Count 179 D (150-450) 10^3/uL Neut % (Auto) 57.8 (42.2-75.2) % Lymph % (Auto) 34.9 (20.5-50.1) % Rooks % (Auto) 1.0 L (2-8) % Eos % (Auto) 6.0 H (1.0-3.0) % Baso % (Auto) 0.3 (0.0-1.0) % Add Manual Diff Yes Neutrophils % (Manual) 49 (42-75) % Band Neutrophils % 8 % Lymphocytes % (Manual) 39 (20-50) % Atypical Lymphs % 0 % Monocytes % (Manual) 1 L (2-8) % Eosinophils % (Manual) 3 (1-3) % Hypochromasia 1+ slight Poikilocytosis 1+ slight PT 11.2 (9.0-12.0) SEC INR 1.1 (0.9-1.2) Sodium (136-145) mmol/L Potassium (3.5-5.1) mmol/L Chloride (98-107) mmol/L Carbon Dioxide (21-32) mmol/L Anion Gap (7-13) mEq/L BUN (7-18) mg/dL Creatinine (0.55-1.02) mg/dL Est Cr Clr Drug Dosing Estimated GFR (MDRD) BUN/Creatinine Ratio (No establ ref range) Glucose (70-99) mg/dL Lactic Acid (0.4-2.0) mmol/L Calcium (8.5-10.1) mg/dL Total Bilirubin (0.2-1.0) mg/dL AST (15-37) U/L ALT (14-59) U/L Alkaline Phosphatase (46-116) U/L Total Protein (6.4-8.2) g/dL Albumin (3.4-5.0) g/dL Globulin Albumin/Globulin Ratio Urine Color Yellow (YELLOW) Urine Appearance Slightly cloudy (CLEAR) Urine pH 6.0 (5.0-9.0) Ur Specific [place] 1.015 (1.005-1.030) Urine Protein 100 H (NEGATIVE) Urine Glucose (UA) Negative (NEGATIVE) Urine Ketones Negative (NEGATIVE) Urine Occult Blood Large H (NEGATIVE) Urine Nitrite Positive H (NEGATIVE) Urine Bilirubin Negative (NEGATIVE) Urine Urobilinogen 0.2 (0.2-1.0) mg/dL Ur Leukocyte Esterase Moderate H (NEGATIVE) Urine RBC 0-5 (0-5) /HPF Urine WBC Semi-packed H (0-5/HPF) /HPF Ur Epithelial Cells Moderate H (NOT SEEN) /HPF Urine Bacteria Many H (0-FEW/HPF) /HPF SARS-CoV-2 RNA (BENNY) (NEGATIVE) 03/07/21 03/07/21 03/07/21 Range/Units 00:30 00:30 01:28 WBC (5.0-10.0) 10^3/uL RBC (4.2-5.4) 10^6/uL Hgb (12.0-16.0) g/dL Hct (37.0-47.0) % MCV (80-100) fL MCH (27.0-34.0) pg MCHC (33.0-35.0) g/dL Plt Count (150-450) 10^3/uL Neut % (Auto) (42.2-75.2) % Lymph % (Auto) (20.5-50.1) % Rooks % (Auto) (2-8) % Eos % (Auto) (1.0-3.0) % Baso % (Auto) (0.0-1.0) % Add Manual Diff Neutrophils % (Manual) (42-75) % Band Neutrophils % % Lymphocytes % (Manual) (20-50) % Atypical Lymphs % % Monocytes % (Manual) (2-8) % Eosinophils % (Manual) (1-3) % Hypochromasia Poikilocytosis PT (9.0-12.0) SEC INR (0.9-1.2) Sodium 131 L (136-145) mmol/L Potassium 4.5 (3.5-5.1) mmol/L Chloride 98 (98-107) mmol/L Carbon Dioxide 21 (21-32) mmol/L Anion Gap 16.5 H (7-13) mEq/L BUN 28 H (7-18) mg/dL Creatinine 0.72 (0.55-1.02) mg/dL Est Cr Clr Drug Dosing TNP Estimated GFR (MDRD) > 60 BUN/Creatinine Ratio 38.9 (No establ ref range) Glucose 142 H (70-99) mg/dL Lactic Acid 0.8 (0.4-2.0) mmol/L Calcium 8.3 L (8.5-10.1) mg/dL Total Bilirubin 0.6 (0.2-1.0) mg/dL AST 23 (15-37) U/L ALT 34 (14-59) U/L Alkaline Phosphatase 166 H (46-116) U/L Total Protein 7.5 (6.4-8.2) g/dL Albumin 2.3 L (3.4-5.0) g/dL Globulin 5.2 Albumin/Globulin Ratio 0.44 Urine Color (YELLOW) Urine Appearance (CLEAR) Urine pH (5.0-9.0) Ur Specific [place] (1.005-1.030) Urine Protein (NEGATIVE) Urine Glucose (UA) (NEGATIVE) Urine Ketones (NEGATIVE) Urine Occult Blood (NEGATIVE) Urine Nitrite (NEGATIVE) Urine Bilirubin (NEGATIVE) Urine Urobilinogen (0.2-1.0) mg/dL Ur Leukocyte Esterase (NEGATIVE) Urine RBC (0-5) /HPF Urine WBC (0-5/HPF) /HPF Ur Epithelial Cells (NOT SEEN) /HPF Urine Bacteria (0-FEW/HPF) /HPF SARS-CoV-2 RNA (BENNY) Negative (NEGATIVE) 03/07/21 03/07/21 Range/Units 06:10 06:10 WBC 1.5 L (5.0-10.0) 10^3/uL RBC 3.07 L (4.2-5.4) 10^6/uL Hgb 7.8 L (12.0-16.0) g/dL Hct 25.7 L (37.0-47.0) % MCV 83.7 (80-100) fL MCH 25.4 L (27.0-34.0) pg MCHC 30.4 L (33.0-35.0) g/dL Plt Count 147 L (150-450) 10^3/uL Neut % (Auto) 44.4 (42.2-75.2) % Lymph % (Auto) 44.4 (20.5-50.1) % [place]ook[place] % (Auto) 1.3 L (2-8) % Eos % (Auto) 9.2 H (1.0-3.0) % Baso % (Auto) 0.7 (0.0-1.0) % Add Manual Diff Neutrophils % (Manual) (42-75) % Band Neutrophils % % Lymphocytes % (Manual) (20-50) % Atypical Lymphs % % Monocytes % (Manual) (2-8) % Eosinophils % (Manual) (1-3) % Hypochromasia Poikilocytosis PT (9.0-12.0) SEC INR (0.9-1.2) Sodium 130 L (136-145) mmol/L Potassium 3.8 (3.5-5.1) mmol/L Chloride 98 (98-107) mmol/L Carbon Dioxide 20 L (21-32) mmol/L Anion Gap 15.8 H (7-13) mEq/L BUN 24 H (7-18) mg/dL Creatinine 0.72 (0.55-1.02) mg/dL Est Cr Clr Drug Dosing 53.58 Estimated GFR (MDRD) > 60 BUN/Creatinine Ratio (No establ ref range) Glucose 255 H (70-99) mg/dL Lactic Acid (0.4-2.0) mmol/L Calcium 7.5 L (8.5-10.1) mg/dL Total Bilirubin (0.2-1.0) mg/dL AST (15-37) U/L ALT (14-59) U/L Alkaline Phosphatase (46-116) U/L Total Protein (6.4-8.2) g/dL Albumin (3.4-5.0) g/dL Globulin Albumin/Globulin Ratio Urine Color (YELLOW) Urine Appearance (CLEAR) Urine pH (5.0-9.0) Ur Specific [place] (1.005-1.030) Urine Protein (NEGATIVE) Urine Glucose (UA) (NEGATIVE) Urine Ketones (NEGATIVE) Urine Occult Blood (NEGATIVE) Urine Nitrite (NEGATIVE) Urine Bilirubin (NEGATIVE) Urine Urobilinogen (0.2-1.0) mg/dL Ur Leukocyte Esterase (NEGATIVE) Urine RBC (0-5) /HPF Urine WBC (0-5/HPF) /HPF Ur Epithelial Cells (NOT SEEN) /HPF Urine Bacteria (0-FEW/HPF) /HPF SARS-CoV-2 RNA (BENNY) (NEGATIVE) Result Diagrams: 03/07/21 06:10 03/07/21 06:10 [facility] Results Last 24 hrs: Microbiology 03/07/21 01:00 Stool Occult Blood (LANDRY) - Final Stool / Feces Sepsis Event Note - Focused Exam Vital Signs: Vital Signs Temp Pulse Resp BP BP Pulse Ox 03/07/21 07:36 97.8 F 115 H 20 125/94 H 100 03/07/21 03:10 98.0 F 107 H 18 121/70 122/68 100 03/07/21 00:05 97.7 F 102 H 16 150/71 H 100 - Problem List & Annotations (1) GI bleed SNOMED Code(s): 44143937 Code(s): K92.2 - GASTROINTESTINAL HEMORRHAGE, UNSPECIFIED Status: Acute Current Visit: Yes (2) Hyperlipidemia SNOMED Code(s): 80840012 Code(s): E78.5 - HYPERLIPIDEMIA, UNSPECIFIED Status: Acute Current Visit: No Onset Date: 08/20/14 (3) UTI (urinary tract infection) SNOMED Code(s): 02321210 Code(s): N39.0 - URINARY TRACT INFECTION, SITE NOT SPECIFIED Status: Acute Current Visit: No Qualifiers: Urinary tract infection type: acute cystitis Hematuria presence: with he maturia Qualified Code(s): N30.01 - Acute cystitis with hematuria - Problem List Review Problem List Initiated/Reviewed/Updated: Yes - My Orders Last 24 Hours: My Active Orders 03/07/21 03:02 CLOSTRIDIUM DIFFICILE TOX RFLX [MREF] Routine 03/07/21 03:03 CULTURE STOOL [RM] Routine Isolation [COMM] Stat 03/07/21 03:05 OT Evaluation and Treatment [CONS] Routine PT Evaluation and Treatment [CONS] Routine ClonazePAM [KlonoPIN] 0.5 mg PO Q6H PRN traMADol [Ultram] 100 mg PO Q4H PRN 03/07/21 03:07 fentaNYL [Sublimaze] 25 mcg IVPUSH Q2H PRN 03/07/21 03:09 Up With Assistance [RC] ASDIRECTED Acetaminophen [TylenoL] 650 mg PO Q4H PRN 03/07/21 03:10 Antiembolic Devices [RC] 08,20 Oxygen Therapy [RC] PRN VTE/DVT Education [RC] 08,20 Vital Signs [RC] 04,08,12,16,20,00 Sequential Compression Device [OM.PC] Per Unit Routine 03/07/21 03:15 Sodium Chloride 0.9% [Normal Saline] 1,000 ml IV ASDIRECTED 03/07/21 06:00 Pantoprazole [ProTONIX] 40 mg PO BID@0600,2100 03/07/21 Breakfast Clear Liquid Diet [DIET] 03/07/21 09:00 Ferrous Sulfate 325 mg PO DAILY Folic Acid 1 mg PO DAILY Gabapentin [Neurontin] 100 mg PO BID Oxybutynin 5 mg PO TID 03/07/21 11:20 Ondansetron [Zofran] 4 mg IVPUSH Q6H PRN 03/07/21 21:00 cefTRIAXone [Rocephin] 1 gm Sodium Chloride 0.9% [Normal Saline AdvBag] 50 ml IV Q24H traZODone 50 mg PO BEDTIME 03/08/21 05:11 BASIC METABOLIC PANEL,BMP [CHEM] AM CBC WITH AUTO DIFF [HEME] AM 03/09/21 05:11 BASIC METABOLIC PANEL,BMP [CHEM] AM CBC WITH AUTO DIFF [HEME] AM 03/10/21 05:11 BASIC METABOLIC PANEL,BMP [CHEM] AM CBC WITH AUTO DIFF [HEME] AM 03/11/21 05:11 BASIC METABOLIC PANEL,BMP [CHEM] AM CBC WITH AUTO DIFF [HEME] AM 03/12/21 05:11 BASIC METABOLIC PANEL,BMP [CHEM] AM CBC WITH AUTO DIFF [HEME] AM 03/13/21 05:11 BASIC METABOLIC PANEL,BMP [CHEM] AM - Plan Plan:: h/o metastatic lung ca presented with bloody diarrhea, weakness Gi bleed lower gi Bloody diarrhea Check stool culture Check c diff treat with Protonix bid acute Anemia A combination of anemia of chronic disease, anemia from acute blood loss and anemia due to chemotherapy Will monitor and transfuse as needed - will hold blood tx for now Cont folic acid, iron Hyponatremia improving Will treat with IVF Uti urine cx : pending Treat with ceftriaxone Metastatic lung ca Does not want further tx Pain control Cont Neurontin, tramadol, trazodone cont iv fentanyl for severe pain Generalized weakness Pt/ot Sw consult Opted for DNR/DNI code status on admission Dvt prophylaxis Scd-s
[2021-03-07] MEDS: Ondansetron 4 MG/2 ML SDV IVPUSH PRN (19:30)
[2021-03-07] MEDS: traZODone 50 MG Tab PO SCH (20:10)
[2021-03-07] MEDS: cefTRIAXone 1 GM in Sodium Chloride 0.9% 50 ML IV SCH (20:10)
[2021-03-07] MEDS: Gabapentin 100 MG Cap PO SCH (20:10)
[2021-03-08] MEDS: traMADol 50 MG Tab PO PRN ×3 (00:25→09:45)
[2021-03-08] MEDS: fentaNYL 100 MCG/2 ML SDV IVPUSH PRN ×7 (02:59→21:45)
[2021-03-08] MEDS: Pantoprazole 40 MG Tab.CR PO SCH ×2 (05:40→20:06)
[2021-03-08] MEDS: Sodium Chloride 0.9% 1,000 ML IV SCH (05:41)
[2021-03-08 06:50] LABS: ANION GAP 14.4 mEq/L (7-13); CHLORIDE,CL 102 mmol/L (98-107); SODIUM,NA 133 mmol/L (136-145)
[2021-03-08] MEDS: Ferrous Sulfate 325 MG Tab PO SCH (09:33)
[2021-03-08] MEDS: Folic Acid 1 MG Tab PO SCH (09:34)
[2021-03-08] MEDS: Oxybutynin 5 MG Tab PO SCH ×3 (09:34→20:06)
[2021-03-08] MEDS ORDERED: fentaNYL 25 MCG/HR Transdermal Patch TRDERM SCH (11:00)
[2021-03-08] MEDS: Ondansetron 4 MG/2 ML SDV IVPUSH PRN ×2 (11:06→17:55)
[2021-03-08] MEDS: Gabapentin 100 MG Cap PO SCH ×2 (11:07→20:06)
--- NOTE | 2021-03-08 11:15 | PCM.PN ---
- General Info Date of Service: 03/08/21 Admission Dx/Problem (Free Text): Admission Diagnosis/Problem Admission Diagnosis/Problem Cancer of right lung Subjective Update: continued to have painin r. chest no fever overnight pain is mod to severe not improved better with and needed to use IV Fentanyl ultram alone is not helping enough no more bloody diarrhea has hemoptysis no vomiting would like to eat more - Patient Data Vitals - Most Recent: Last Vital Signs Temp 97.5 F 03/08/21 07:37 Pulse 107 H 03/08/21 07:37 Resp 18 03/08/21 07:37 BP 95/47 L 03/08/21 07:37 Pulse Ox 100 03/08/21 07:37 Weight - Most Recent: 109 lb I&O - Last 24 Hours: Intake & Output 03/07/21 03/08/21 03/08/21 22:59 06:59 14:59 Intake Total 250 200 Output Total 800 300 Balance -550 -100 Lab Results Last 24 Hours: Laboratory Results - last 24 hr 03/08/21 03/08/21 Range/Units 06:20 06:20 WBC 0.9 L* (5.0-10.0) 10^3/uL RBC 2.76 L (4.2-5.4) 10^6/uL Hgb 7.0 L (12.0-16.0) g/dL Hct 23.3 L (37.0-47.0) % MCV 84.4 (80-100) fL MCH 25.4 L (27.0-34.0) pg MCHC 30.0 L (33.0-35.0) g/dL Plt Count 103 L (150-450) 10^3/uL Neut % (Auto) 14.1 L (42.2-75.2) % Lymph % (Auto) 70.6 H (20.5-50.1) % [place] % (Auto) 3.5 (2-8) % Eos % (Auto) 11.8 H (1.0-3.0) % Baso % (Auto) 0.0 (0.0-1.0) % Add Manual Diff Yes Neutrophils % (Manual) 8 L (42-75) % Band Neutrophils % 2 % Lymphocytes % (Manual) 78 H (20-50) % Monocytes % (Manual) 4 (2-8) % Eosinophils % (Manual) 8 H (1-3) % Platelet Estimate Decreased Hypochromasia 1+ slight Microcytosis 1+ slight Sodium 133 L (136-145) mmol/L Potassium 3.4 L (3.5-5.1) mmol/L Chloride 102 (98-107) mmol/L Carbon Dioxide 20 L (21-32) mmol/L Anion Gap 14.4 H (7-13) mEq/L BUN 12 (7-18) mg/dL Creatinine 0.63 (0.55-1.02) mg/dL Est Cr Clr Drug Dosing 63.93 mL/min Estimated GFR (MDRD) > 60 Glucose 90 (70-99) mg/dL Calcium 6.6 L (8.5-10.1) mg/dL [place] Results Last 24 Hours: Microbiology 03/07/21 00:25 Urine Culture - Preliminary Urine, Voided Med Orders - Current: Current Medications Acetaminophen (Acetaminophen 325 Mg Tab) 650 mg PO Q4H PRN PRN Reason: Pain (Mild 1-3)/fever Clonazepam (Clonazepam 0.5 Mg Tab) 0.5 mg PO Q6H PRN PRN Reason: Anxiety Fentanyl (Fentanyl 100 Mcg/2 Ml Sdv) 25 mcg IVPUSH Q2H PRN PRN Reason: severe pain Last Admin: 03/08/21 09:27 Dose: 25 mcg Documented by: Fentanyl (Fentanyl 25 Mcg/Hr Transdermal Patch) 25 mcg TRDERM Q72H [facility] Last Admin: 03/08/21 11:06 Dose: 25 mcg Documented by: Ferrous Sulfate (Ferrous Sulfate 325 Mg Tab) 325 mg PO DAILY [facility] Last Admin: 03/08/21 09:33 Dose: 325 mg Documented by: Folic Acid (Folic Acid 1 Mg Tab) 1 mg PO DAILY [facility] Last Admin: 03/08/21 09:34 Dose: 1 mg Documented by: Gabapentin (Gabapentin 100 Mg Cap) 200 mg PO BID [facility] Last Admin: 03/08/21 11:07 Dose: 200 mg Documented by: Ceftriaxone Sodium 1 gm/ (Sodium Chloride) 50 mls @ 100 mls/hr IV Q24H [facility] Last Admin: 03/07/21 20:10 Dose: 100 mls/hr Documented by: Miscellaneous Information (Check Patch) 1 ea TRDERM BID [facility] Ondansetron HCl (Ondansetron 4 Mg/2 Ml Sdv) 4 mg IVPUSH Q6H PRN PRN Reason: Nausea/Vomiting Last Admin: 03/08/21 11:06 Dose: 4 mg Documented by: Oxybutynin Chloride (Oxybutynin 5 Mg Tab) 5 mg PO TID [facility] Last Admin: 03/08/21 09:34 Dose: 5 mg Documented by: Pantoprazole Sodium (Pantoprazole 40 Mg Tab.Cr) 40 mg PO BID@0600,2100 [facility] Last Admin: 03/08/21 05:40 Dose: 40 mg Documented by: Trazodone HCl (Trazodone 50 Mg Tab) 50 mg PO BEDTIME [facility] Last Admin: 03/07/21 20:10 Dose: 50 mg Documented by: Discontinued Medications Fentanyl (Fentanyl 100 Mcg/2 Ml Sdv) 25 mcg IVPUSH ONETIME ONE; Protocol Stop: 03/07/21 00:44 Last Admin: 03/08/21 00:10 Dose: Not Given Documented by: Gabapentin (Gabapentin 100 Mg Cap) 100 mg PO BID [facility] Last Admin: 03/07/21 08:57 Dose: 100 mg Documented by: Sodium Chloride (Normal Saline) 500 mls @ 15 mls/hr IV .BOLUS [facility] Last Admin: 03/07/21 00:52 Dose: 15 mls/hr Documented by: Ceftriaxone Sodium 1 gm/ (Sodium Chloride) 50 mls @ 100 mls/hr IV ONETIME ONE Stop: 03/07/21 01:58 Last Admin: 03/07/21 02:08 Dose: 100 mls/hr Documented by: Sodium Chloride (Normal Saline) 1,000 mls @ 75 mls/hr IV ASDIRECTED [facility] Last Admin: 03/08/21 05:41 Dose: 75 mls/hr Documented by: Morphine Sulfate (Morphine 2 Mg/Ml Syringe) 2 mg IVPUSH ONETIME ONE Stop: 03/07/21 00:45 Last Admin: 03/07/21 00:51 Dose: 2 mg Documented by: Ondansetron HCl (Ondansetron 4 Mg/2 Ml Sdv) 4 mg IVPUSH ONETIME ONE Stop: 03/07/21 00:46 Last Admin: 03/07/21 00:52 Dose: 4 mg Documented by: Pantoprazole Sodium (Pantoprazole 40 Mg Tab.Cr) 40 mg PO DAILY [facility] Tramadol HCl (Tramadol 50 Mg Tab) 100 mg PO Q4H PRN PRN Reason: Pain Last Admin: 03/08/21 05:40 Dose: 100 mg Documented by: - Exam Quality Assessment: Supplemental Oxygen General: Alert, Oriented Neck: Supple Lungs: Normal Respiratory Effort, Decreased Breath Sounds Cardiovascular: Regular Rate, Regular Rhythm Extremities: No Pedal Edema Neurological: No New Focal Deficit Psy/Mental Status: Alert, Normal Affect, Normal Mood - Patient Data Lab Results Last 24 hrs: Laboratory Results - last 24 hr 03/08/21 03/08/21 Range/Units 06:20 06:20 WBC 0.9 L* (5.0-10.0) 10^3/uL RBC 2.76 L (4.2-5.4) 10^6/uL Hgb 7.0 L (12.0-16.0) g/dL Hct 23.3 L (37.0-47.0) % MCV 84.4 (80-100) fL MCH 25.4 L (27.0-34.0) pg MCHC 30.0 L (33.0-35.0) g/dL Plt Count 103 L (150-450) 10^3/uL Neut % (Auto) 14.1 L (42.2-75.2) % Lymph % (Auto) 70.6 H (20.5-50.1) % [place] % (Auto) 3.5 (2-8) % Eos % (Auto) 11.8 H (1.0-3.0) % Baso % (Auto) 0.0 (0.0-1.0) % Add Manual Diff Yes Neutrophils % (Manual) 8 L (42-75) % Band Neutrophils % 2 % Lymphocytes % (Manual) 78 H (20-50) % Monocytes % (Manual) 4 (2-8) % Eosinophils % (Manual) 8 H (1-3) % Platelet Estimate Decreased Hypochromasia 1+ slight Microcytosis 1+ slight Sodium 133 L (136-145) mmol/L Potassium 3.4 L (3.5-5.1) mmol/L Chloride 102 (98-107) mmol/L Carbon Dioxide 20 L (21-32) mmol/L Anion Gap 14.4 H (7-13) mEq/L BUN 12 (7-18) mg/dL Creatinine 0.63 (0.55-1.02) mg/dL Est Cr Clr Drug Dosing 63.93 mL/min Estimated GFR (MDRD) > 60 Glucose 90 (70-99) mg/dL Calcium 6.6 L (8.5-10.1) mg/dL Result Diagrams: 03/08/21 06:20 03/08/21 06:20 [place] Results Last 24 hrs: Microbiology 03/07/21 00:25 Urine Culture - Preliminary Urine, Voided Sepsis Event Note - Evaluation Sepsis Screening Result: Sepsis Risk - Focused Exam Vital Signs: Vital Signs Temp Pulse Resp BP Pulse Ox 03/08/21 07:37 97.5 F 107 H 18 95/47 L 100 03/08/21 05:40 97.6 F 84 16 104/55 L 100 03/08/21 04:00 14 03/08/21 00:00 98.0 F 92 16 113/59 L 100 - Problem List & Annotations (1) GI bleed SNOMED Code(s): 94740050 Code(s): K92.2 - GASTROINTESTINAL HEMORRHAGE, UNSPECIFIED Status: Acute Current Visit: Yes (2) Hyperlipidemia SNOMED Code(s): 19594253 Code(s): E78.5 - HYPERLIPIDEMIA, UNSPECIFIED Status: Acute Current Visit: No Onset Date: 08/20/14 (3) UTI (urinary tract infection) SNOMED Code(s): 62382096 Code(s): N39.0 - URINARY TRACT INFECTION, SITE NOT SPECIFIED Status: Acute Current Visit: No Qualifiers: Urinary tract infection type: acute cystitis Hematuria presence: with hematuria Qualified Code(s): N30.01 - Acute cystitis with hematuria - Problem List Review Problem List Initiated/Reviewed/Updated: Yes - My Orders Last 24 Hours: My Active Orders 03/07/21 11:20 Ondansetron [Zofran] 4 mg IVPUSH Q6H PRN 03/07/21 21:00 Gabapentin [Neurontin] 200 mg PO BID cefTRIAXone [Rocephin] 1 gm Sodium Chloride 0.9% [Normal Saline AdvBag] 50 ml IV Q24H traZODone 50 mg PO BEDTIME 03/08/21 11:00 fentaNYL [Duragesic] 25 mcg TRDERM Q72H 03/08/21 11:08 Verify Patient Consent Obtain [RC] ASDIRECTED RED BLOOD CELLS LP [BBK] Routine TYPE AND SCREEN [BBK] Routine Transfuse Red Blood Cells [COMM] Routine 03/08/21 11:11 oxyCODONE 5 mg PO Q4H PRN 03/08/21 Lunch General [Regular Diet] [DIET] 03/08/21 21:00 Check Patch 1 ea TRDERM BID 03/09/21 05:11 BASIC METABOLIC PANEL,BMP [CHEM] AM CBC WITH AUTO DIFF [HEME] AM 03/10/21 05:11 BASIC METABOLIC PANEL,BMP [CHEM] AM CBC WITH AUTO DIFF [HEME] AM 03/11/21 05:11 BASIC METABOLIC PANEL,BMP [CHEM] AM CBC WITH AUTO DIFF [HEME] AM 03/12/21 05:11 BASIC METABOLIC PANEL,BMP [CHEM] AM CBC WITH AUTO DIFF [HEME] AM 03/13/21 05:11 BASIC METABOLIC PANEL,BMP [CHEM] AM - Plan Plan:: h/o metastatic lung ca presented with bloody diarrhea, weakness Gi bleed lower gi Bloody diarrhea resolved treat with Protonix bid acute Anemia A combination of anemia of chronic disease, anemia from acute blood loss and anemia due to chemotherapy Will transfuse 2 units of prbc today discussed risks and benefits with pt Cont folic acid, iron Hyponatremia improving Uti urine cx : jayne neg rods Treat with ceftriaxone Metastatic lung ca Does not want further tx anemia, neutropenia due to chemo therapy follow counts transfuse as needed neutropenic precautions Pain control not controlled Cont Neurontin, trazodone stop tramadol add oxycodone add fentanyl patch cont iv fentanyl for severe pain Generalized weakness Pt/ot Sw consult Opted for DNR/DNI code status on admission Dvt prophylaxis Scd-s
[2021-03-08] MEDS: oxyCODONE 5 MG Tab PO PRN ×3 (11:44→20:06)
[2021-03-08] MEDS ORDERED: diphenhydrAMINE 25 MG Tab PO ONE (14:13)
[2021-03-08] MEDS: traZODone 50 MG Tab PO SCH (20:06)
[2021-03-08] MEDS: Check Patch TRDERM SCH (20:45)
[2021-03-08] MEDS: cefTRIAXone 1 GM in Sodium Chloride 0.9% 50 ML IV SCH (21:46)
[2021-03-08] MEDS: guaiFENesin 100 MG/5 ML Soln 5 ML UD Cup PO PRN (22:57)
[2021-03-08] MEDS: Phenazopyridine 95 MG Tab PO SCH (22:57)
[2021-03-09] MEDS: Ondansetron 4 MG/2 ML SDV IVPUSH PRN ×3 (00:38→21:38)
[2021-03-09] MEDS: fentaNYL 100 MCG/2 ML SDV IVPUSH PRN ×3 (04:18→22:09)
[2021-03-09] MEDS: oxyCODONE 5 MG Tab PO PRN ×3 (04:23→19:28)
[2021-03-09] MEDS: Pantoprazole 40 MG Tab.CR PO SCH ×2 (05:04→21:53)
[2021-03-09 06:46] LABS: ANION GAP 14.7 mEq/L (7-13); CHLORIDE,CL 103 mmol/L (98-107); SODIUM,NA 134 mmol/L (136-145)
[2021-03-09] MEDS: Ferrous Sulfate 325 MG Tab PO SCH (08:49)
[2021-03-09] MEDS: Folic Acid 1 MG Tab PO SCH (08:50)
[2021-03-09] MEDS: Oxybutynin 5 MG Tab PO SCH ×3 (08:50→21:53)
[2021-03-09] MEDS: Phenazopyridine 95 MG Tab PO SCH (08:50)
[2021-03-09] MEDS: Gabapentin 100 MG Cap PO SCH ×2 (08:50→21:53)
[2021-03-09] MEDS: Check Patch TRDERM SCH ×2 (08:53→21:55)
--- NOTE | 2021-03-09 10:59 | PCM.PN ---
- General Info Date of Service: 03/09/21 Admission Dx/Problem (Free Text): Admission Diagnosis/Problem Admission Diagnosis/Problem Cancer of right lung Subjective Update: continued to have pain in r. chest no fever pain is mod to severe not improved with fentanyl patch not improved with switching ultram to oxycodone better with and needed to use IV Fentanyl no more bloody diarrhea has hemoptysis no vomiting Functional Status: Reports: Tolerating Diet, Ambulating, Urinating (c/o burning). Denies: Pain Controlled - Review of Systems General: Denies: Fever Pulmonary: Denies: Shortness of Breath Cardiovascular: Reports: Chest Pain. Denies: Edema Gastrointestinal: Denies: Abdominal Pain Genitourinary: Reports: Dysuria Neurological: Denies: Confusion - Patient Data Vitals - Most Recent: Last Vital Signs Temp 98.3 F 03/09/21 08:00 Pulse 107 H 03/09/21 08:00 Resp 16 03/09/21 08:00 BP 103/65 03/09/21 08:00 Pulse Ox 100 03/09/21 08:00 Weight - Most Recent: 109 lb I&O - Last 24 Hours: Intake & Output 03/08/21 03/09/21 03/09/21 22:59 06:59 14:59 Intake Total 880 230 360 Output Total 1000 1000 Balance -120 -770 360 Lab Results Last 24 Hours: Laboratory Results - last 24 hr 03/08/21 03/09/21 03/09/21 Range/Units 06:20 06:02 06:02 WBC 1.0 L* (5.0-10.0) 10^3/uL RBC 3.87 L (4.2-5.4) 10^6/uL Hgb 10.0 L D (12.0-16.0) g/dL Hct 31.8 L (37.0-47.0) % MCV 82.2 (80-100) fL MCH 25.8 L (27.0-34.0) pg MCHC 31.4 L (33.0-35.0) g/dL Plt Count 60 L (150-450) 10^3/uL Neut % (Auto) 7.9 L (42.2-75.2) % Lymph % (Auto) 79.4 H (20.5-50.1) % [place] % (Auto) 4.9 (2-8) % Eos % (Auto) 7.8 H (1.0-3.0) % Baso % (Auto) 0.0 (0.0-1.0) % Sodium 134 L (136-145) mmol/L Potassium 3.7 (3.5-5.1) mmol/L Chloride 103 (98-107) mmol/L Carbon Dioxide 20 L (21-32) mmol/L Anion Gap 14.7 H (7-13) mEq/L BUN 11 (7-18) mg/dL Creatinine 0.69 (0.55-1.02) mg/dL Est Cr Clr Drug Dosing 58.37 mL/min Estimated GFR (MDRD) > 60 Glucose 101 H (70-99) mg/dL Calcium 6.8 L (8.5-10.1) mg/dL Blood Type A POSITIVE Gel Antibody Screen Negative Crossmatch See Detail [place] Results Last 24 Hours: Microbiology 03/07/21 00:25 Urine Culture - Final Urine, Voided Escherichia Coli Med Orders - Current: Current Medications Acetaminophen (Acetaminophen 325 Mg Tab) 650 mg PO Q4H PRN PRN Reason: Pain (Mild 1-3)/fever Clonazepam (Clonazepam 0.5 Mg Tab) 0.5 mg PO Q6H PRN PRN Reason: Anxiety Fentanyl (Fentanyl 100 Mcg/2 Ml Sdv) 25 mcg IVPUSH Q2H PRN PRN Reason: severe pain Last Admin: 03/09/21 10:11 Dose: 25 mcg Documented by: Fentanyl (Fentanyl 25 Mcg/Hr Transdermal Patch) 25 mcg TRDERM Q72H [facility] Last Admin: 03/08/21 11:06 Dose: 25 mcg Documented by: Ferrous Sulfate (Ferrous Sulfate 325 Mg Tab) 325 mg PO DAILY [facility] Last Admin: 03/09/21 08:49 Dose: 325 mg Documented by: Folic Acid (Folic Acid 1 Mg Tab) 1 mg PO DAILY [facility] Last Admin: 03/09/21 08:50 Dose: 1 mg Documented by: Gabapentin (Gabapentin 100 Mg Cap) 200 mg PO BID [facility] Last Admin: 03/09/21 08:50 Dose: 200 mg Documented by: Guaifenesin (Guaifenesin 100 Mg/5 Ml Soln 5 Ml Ud Cup) 100 mg PO Q6H PRN PRN Reason: Cough Last Admin: 03/08/21 22:57 Dose: 100 mg Documented by: Ceftriaxone Sodium 1 gm/ (Sodium Chloride) 50 mls @ 100 mls/hr IV Q24H [facility] Last Admin: 03/08/21 21:46 Dose: 100 mls/hr Documented by: Miscellaneous Information (Check Patch) 1 ea TRDERM BID [facility] Last Admin: 03/09/21 08:53 Dose: 1 ea Documented by: Miscellaneous Information (Remove Patch) 1 ea TRDERM Q72H [facility] Ondansetron HCl (Ondansetron 4 Mg/2 Ml Sdv) 4 mg IVPUSH Q6H PRN PRN Reason: Nausea/Vomiting Last Admin: 03/09/21 00:38 Dose: 4 mg Documented by: Oxybutynin Chloride (Oxybutynin 5 Mg Tab) 5 mg PO TID [facility] Last Admin: 03/09/21 08:50 Dose: 5 mg Documented by: Oxycodone HCl (Oxycodone 5 Mg Tab) 10 mg PO Q4H PRN PRN Reason: Pain (moderate 4-6) Pantoprazole Sodium (Pantoprazole 40 Mg Tab.Cr) 40 mg PO BID@0600,2100 [facility] Last Admin: 03/09/21 05:04 Dose: 40 mg Documented by: Phenazopyridine HCl (Phenazopyridine 95 Mg Tab) 95 mg PO DAILY [facility] Last Admin: 03/09/21 08:50 Dose: 95 mg Documented by: Trazodone HCl (Trazodone 50 Mg Tab) 50 mg PO BEDTIME [facility] Last Admin: 03/08/21 20:06 Dose: 50 mg Documented by: Discontinued Medications Diphenhydramine HCl (Diphenhydramine 25 Mg Tab) 25 mg PO ONETIME ONE Stop: 03/08/21 14:14 Last Admin: 03/08/21 14:23 Dose: 25 mg Documented by: Fentanyl (Fentanyl 100 Mcg/2 Ml Sdv) 25 mcg IVPUSH ONETIME ONE; Protocol Stop: 03/07/21 00:44 Last Admin: 03/08/21 00:10 Dose: Not Given Documented by: Gabapentin (Gabapentin 100 Mg Cap) 100 mg PO BID [facility] Last Admin: 03/07/21 08:57 Dose: 100 mg Documented by: Sodium Chloride (Normal Saline) 500 mls @ 15 mls/hr IV .BOLUS [facility] Last Admin: 03/07/21 00:52 Dose: 15 mls/hr Documented by: Ceftriaxone Sodium 1 gm/ (Sodium Chloride) 50 mls @ 100 mls/hr IV ONETIME ONE Stop: 03/07/21 01:58 Last Admin: 03/07/21 02:08 Dose: 100 mls/hr Documented by: Sodium Chloride (Normal Saline) 1,000 mls @ 75 mls/hr IV ASDIRECTED [facility] Last Admin: 03/08/21 05:41 Dose: 75 mls/hr Documented by: Morphine Sulfate (Morphine 2 Mg/Ml Syringe) 2 mg IVPUSH ONETIME ONE Stop: 03/07/21 00:45 Last Admin: 03/07/21 00:51 Dose: 2 mg Documented by: Ondansetron HCl (Ondansetron 4 Mg/2 Ml Sdv) 4 mg IVPUSH ONETIME ONE Stop: 03/07/21 00:46 Last Admin: 03/07/21 00:52 Dose: 4 mg Documented by: Oxycodone HCl (Oxycodone 5 Mg Tab) 5 mg PO Q4H PRN PRN Reason: Pain (moderate 4-6) Last Admin: 03/09/21 08:57 Dose: 5 mg Documented by: Pantoprazole Sodium (Pantoprazole 40 Mg Tab.Cr) 40 mg PO DAILY [facility] Tramadol HCl (Tramadol 50 Mg Tab) 100 mg PO Q4H PRN PRN Reason: Pain Last Admin: 03/08/21 09:45 Dose: 100 mg Documented by: - Exam Quality Assessment: No: Supplemental Oxygen General: Alert, Oriented Neck: Supple Lungs: Clear to Auscultation, Normal Respiratory Effort Cardiovascular: Regular Rate, Regular Rhythm GI/Abdominal Exam: Normal Bowel Sounds, Soft, Non-Tender Extremities: No Pedal Edema Skin: Warm, Dry Neurological: No New Focal Deficit Psy/Mental Status: Alert, Normal Affect, Normal Mood - Patient Data Lab Results Last 24 hrs: Laboratory Results - last 24 hr 03/08/21 03/09/21 03/09/21 Range/Units 06:20 06:02 06:02 WBC 1.0 L* (5.0-10.0) 10^3/uL RBC 3.87 L (4.2-5.4) 10^6/uL Hgb 10.0 L D (12.0-16.0) g/dL Hct 31.8 L (37.0-47.0) % MCV 82.2 (80-100) fL MCH 25.8 L (27.0-34.0) pg MCHC 31.4 L (33.0-35.0) g/dL Plt Count 60 L (150-450) 10^3/uL Neut % (Auto) 7.9 L (42.2-75.2) % Lymph % (Auto) 79.4 H (20.5-50.1) % [place] % (Auto) 4.9 (2-8) % Eos % (Auto) 7.8 H (1.0-3.0) % Baso % (Auto) 0.0 (0.0-1.0) % Sodium 134 L (136-145) mmol/L Potassium 3.7 (3.5-5.1) mmol/L Chloride 103 (98-107) mmol/L Carbon Dioxide 20 L (21-32) mmol/L Anion Gap 14.7 H (7-13) mEq/L BUN 11 (7-18) mg/dL Creatinine 0.69 (0.55-1.02) mg/dL Est Cr Clr Drug Dosing 58.37 mL/min Estimated GFR (MDRD) > 60 Glucose 101 H (70-99) mg/dL Calcium 6.8 L (8.5-10.1) mg/dL Blood Type A POSITIVE Gel Antibody Screen Negative Crossmatch See Detail Result Diagrams: 03/09/21 06:02 03/09/21 06:02 [place] Results Last 24 hrs: Microbiology 03/07/21 00:25 Urine Culture - Final Urine, Voided Escherichia Coli Sepsis Event Note - Evaluation Sepsis Screening Result: Sepsis Risk - Focused Exam Vital Signs: Vital Signs Temp Pulse Resp BP Pulse Ox 03/09/21 08:00 98.3 F 107 H 16 103/65 100 03/09/21 04:00 98.1 F 98 18 110/57 L 98 03/09/21 00:00 97.8 F 16 - Problem List & Annotations (1) GI bleed SNOMED Code(s): 58710779 Code(s): K92.2 - GASTROINTESTINAL HEMORRHAGE, UNSPECIFIED Status: Acute Current Visit: Yes (2) Hyperlipidemia SNOMED Code(s): 37104729 Code(s): E78.5 - HYPERLIPIDEMIA, UNSPECIFIED Status: Acute Current Visit: No Onset Date: 08/20/14 (3) UTI (urinary tract infection) SNOMED Code(s): 96113978 Code(s): N39.0 - URINARY TRACT INFECTION, SITE NOT SPECIFIED Status: Acute Current Visit: No Qualifiers: Urinary tract infection type: acute cystitis Hematuria presence: with hematuria Qualified Code(s): N30.01 - Acute cystitis with hematuria - Problem List Review Problem List Initiated/Reviewed/Updated: Yes - My Orders Last 24 Hours: My Active Orders 03/08/21 11:00 fentaNYL [Duragesic] 25 mcg TRDERM Q72H 03/08/21 11:08 Verify Patient Consent Obtain [RC] ASDIRECTED Transfuse Red Blood Cells [COMM] Routine 03/08/21 Lunch General [Regular Diet] [DIET] 03/08/21 21:00 Check Patch 1 ea TRDERM BID 03/08/21 22:23 guaiFENesin [Robitussin] 100 mg PO Q6H PRN 03/08/21 22:30 Phenazopyridine [Urinary Pain Relief] 95 mg PO DAILY 03/09/21 10:54 oxyCODONE 10 mg PO Q4H PRN 03/10/21 05:11 BASIC METABOLIC PANEL,BMP [CHEM] AM CBC WITH AUTO DIFF [HEME] AM 03/11/21 05:11 BASIC METABOLIC PANEL,BMP [CHEM] AM CBC WITH AUTO DIFF [HEME] AM 03/11/21 11:00 Remove Patch 1 ea TRDERM Q72H 03/12/21 05:11 BASIC METABOLIC PANEL,BMP [CHEM] AM CBC WITH AUTO DIFF [HEME] AM 03/13/21 05:11 BASIC METABOLIC PANEL,BMP [CHEM] AM - Plan Plan:: h/o metastatic lung ca presented with bloody diarrhea, weakness Gi bleed lower gi Bloody diarrhea resolved treat with Protonix bid acute Anemia A combination of anemia of chronic disease, anemia from acute blood loss and anemia due to chemotherapy transfused 2 units of prbc on 03/08 will follow hgb in AM Cont folic acid, iron Hyponatremia improving Uti urine cx : e coli , pansensitive Treat with ceftriaxone plan to stop soon Metastatic lung ca Does not want further tx anemia, neutropenia due to chemo therapy follow counts transfuse as needed neutropenic precautions Pain control not controlled Cont Neurontin, trazodone increase oxycodone added fentanyl patch cont iv fentanyl for severe pain Generalized weakness Pt/ot Sw consult Opted for DNR/DNI code status on admission Dvt prophylaxis Scd-s
[2021-03-09] MEDS: Lidocaine 5% 700 MG Patch TRDERM SCH (13:05)
[2021-03-09] MEDS: cefTRIAXone 1 GM in Sodium Chloride 0.9% 50 ML IV SCH (21:43)
[2021-03-09] MEDS: traZODone 50 MG Tab PO SCH (21:53)
[2021-03-09] MEDS: guaiFENesin 100 MG/5 ML Soln 5 ML UD Cup PO PRN (22:05)
[2021-03-09] MEDS: Acetaminophen 325 MG Tab PO PRN (23:49)
[2021-03-10] MEDS: ClonazePAM 0.5 MG Tab PO PRN ×3 (01:04→21:50)
[2021-03-10] MEDS: guaiFENesin 100 MG/5 ML Soln 5 ML UD Cup PO PRN ×4 (04:36→23:39)
[2021-03-10] MEDS: Pantoprazole 40 MG Tab.CR PO SCH ×3 (04:36→20:46)
[2021-03-10] MEDS: oxyCODONE 5 MG Tab PO PRN ×4 (04:37→20:44)
[2021-03-10 06:57] LABS: ANION GAP 15.4 mEq/L (7-13); CHLORIDE,CL 103 mmol/L (98-107); SODIUM,NA 135 mmol/L (136-145)
[2021-03-10] MEDS: Gabapentin 100 MG Cap PO SCH ×2 (09:00→20:46)
[2021-03-10] MEDS: Folic Acid 1 MG Tab PO SCH (09:00)
[2021-03-10] MEDS: Oxybutynin 5 MG Tab PO SCH ×3 (09:00→20:46)
[2021-03-10] MEDS: Phenazopyridine 95 MG Tab PO SCH (09:01)
[2021-03-10] MEDS: Ferrous Sulfate 325 MG Tab PO SCH (09:01)
[2021-03-10] MEDS: Check Patch TRDERM SCH ×2 (09:07→20:46)
[2021-03-10] MEDS: Lidocaine 5% 700 MG Patch TRDERM SCH (09:10)
[2021-03-10] MEDS: Acetaminophen 325 MG Tab PO PRN ×2 (11:54→18:33)
[2021-03-10] MEDS: Ondansetron 4 MG/2 ML SDV IVPUSH PRN ×2 (11:56→18:34)
[2021-03-10] MEDS: Lidocaine 2% Jelly 5 ML Tube MUCMEM PRN ×3 (12:00→20:57)
[2021-03-10] MEDS ORDERED: Potassium Chloride 10 MEQ Tab.ER PO ONE ×2 (12:24→14:45)
--- NOTE | 2021-03-10 12:31 | PCM.PN ---
- General Info Date of Service: 03/10/21 Admission Dx/Problem (Free Text): Admission Diagnosis/Problem Admission Diagnosis/Problem Cancer of right lung Subjective Update: continued to have pain in r. chest no associated fever pain is mod to severe not improved with fentanyl patch not improved with switching ultram to oxycodone better with and needed to use IV Fentanyl no more bloody diarrhea has hemoptysis and mild hematuria no vomiting c/o burning with urination Functional Status: Reports: Tolerating Diet. Denies: Pain Controlled - Review of Systems General: Reports: Weakness. Denies: Fever Pulmonary: Denies: Shortness of Breath Cardiovascular: Reports: Chest Pain Gastrointestinal: Denies: Abdominal Pain Genitourinary: Reports: Dysuria, Hematuria Neurological: Denies: Confusion - Patient Data Vitals - Most Recent: Last Vital Signs Temp 98.7 F 03/10/21 12:00 Pulse 98 03/10/21 12:00 Resp 22 H 03/10/21 12:00 BP 93/49 L 03/10/21 12:00 Pulse Ox 91 L 03/10/21 12:00 Weight - Most Recent: 109 lb I&O - Last 24 Hours: Intake & Output 03/09/21 03/10/21 03/10/21 22:59 06:59 14:59 Intake Total 550 Output Total 700 Balance -150 Lab Results Last 24 Hours: Laboratory Results - last 24 hr 03/10/21 03/10/21 Range/Units 06:25 06:25 WBC 1.5 L (5.0-10.0) 10^3/uL RBC 3.45 L (4.2-5.4) 10^6/uL Hgb 8.9 L (12.0-16.0) g/dL Hct 27.8 L (37.0-47.0) % MCV 80.6 (80-100) fL MCH 25.8 L (27.0-34.0) pg MCHC 32.0 L (33.0-35.0) g/dL Plt Count 29 L* (150-450) 10^3/uL Neut % (Auto) 40.8 L (42.2-75.2) % Lymph % (Auto) 47.6 (20.5-50.1) % [facility] % (Auto) 7.5 (2-8) % Eos % (Auto) 3.4 H (1.0-3.0) % Baso % (Auto) 0.7 (0.0-1.0) % Sodium 135 L (136-145) mmol/L Potassium 3.4 L (3.5-5.1) mmol/L Chloride 103 (98-107) mmol/L Carbon Dioxide 20 L (21-32) mmol/L Anion Gap 15.4 H (7-13) mEq/L BUN 12 (7-18) mg/dL Creatinine 0.75 (0.55-1.02) mg/dL Est Cr Clr Drug Dosing 53.70 mL/min Estimated GFR (MDRD) > 60 Glucose 93 (70-99) mg/dL Calcium 7.1 L (8.5-10.1) mg/dL [facility] Results Last 24 Hours: Microbiology 03/07/21 00:25 Urine Culture - Final Urine, Voided Escherichia Coli Med Orders - Current: Current Medications Acetaminophen (Acetaminophen 325 Mg Tab) 650 mg PO Q4H PRN PRN Reason: Pain (Mild 1-3)/fever Last Admin: 03/10/21 11:54 Dose: 650 mg Documented by: Clonazepam (Clonazepam 0.5 Mg Tab) 0.5 mg PO Q6H PRN PRN Reason: Anxiety Last Admin: 03/10/21 09:01 Dose: 0.5 mg Documented by: Fentanyl (Fentanyl 100 Mcg/2 Ml Sdv) 25 mcg IVPUSH Q2H PRN PRN Reason: severe pain Last Admin: 03/09/21 22:09 Dose: 25 mcg Documented by: Fentanyl (Fentanyl 25 Mcg/Hr Transdermal Patch) 25 mcg TRDERM Q72H [facility] Last Admin: 03/08/21 11:06 Dose: 25 mcg Documented by: Ferrous Sulfate (Ferrous Sulfate 325 Mg Tab) 325 mg PO DAILY [facility] Last Admin: 03/10/21 09:01 Dose: 325 mg Documented by: Folic Acid (Folic Acid 1 Mg Tab) 1 mg PO DAILY [facility] Last Admin: 03/10/21 09:00 Dose: 1 mg Documented by: Guaifenesin (Guaifenesin 100 Mg/5 Ml Soln 5 Ml Ud Cup) 100 mg PO Q6H PRN PRN Reason: Cough Last Admin: 03/10/21 11:59 Dose: 100 mg Documented by: Ceftriaxone Sodium 1 gm/ (Sodium Chloride) 50 mls @ 100 mls/hr IV Q24H [facility] Last Infusion: 03/10/21 01:03 Dose: Infused Documented by: Lidocaine (Lidocaine 5% 700 Mg Patch) 700 mg TRDERM DAILY [facility] Last Admin: 03/10/21 09:10 Dose: 700 mg Documented by: Lidocaine HCl (Lidocaine 2% Jelly 5 Ml Tube) 0 ml MUCMEM Q4H PRN PRN Reason: soreness of labial ulcer Last Admin: 03/10/21 12:00 Dose: 1 applic Documented by: Miscellaneous Information (Check Patch) 1 ea TRDERM BID [facility] Last Admin: 03/10/21 09:07 Dose: 1 ea Documented by: Miscellaneous Information (Remove Patch) 1 ea TRDERM Q72H [facility] Miscellaneous Information (Remove Patch) 1 ea TRDERM BEDTIME [facility] Last Admin: 03/09/21 21:56 Dose: 1 ea Documented by: Ondansetron HCl (Ondansetron 4 Mg/2 Ml Sdv) 4 mg IVPUSH Q6H PRN PRN Reason: Nausea/Vomiting Last Admin: 03/10/21 11:56 Dose: 4 mg Documented by: Oxybutynin Chloride (Oxybutynin 5 Mg Tab) 5 mg PO TID [facility] Last Admin: 03/10/21 09:00 Dose: 5 mg Documented by: Oxycodone HCl (Oxycodone 5 Mg Tab) 10 mg PO Q4H PRN PRN Reason: Pain (moderate 4-6) Last Admin: 03/10/21 09:02 Dose: 10 mg Documented by: Pantoprazole Sodium (Pantoprazole 40 Mg Tab.Cr) 40 mg PO BID@0600,2100 [facility] Last Admin: 03/10/21 05:50 Dose: Not Given Documented by: Phenazopyridine HCl (Phenazopyridine 95 Mg Tab) 95 mg PO DAILY [facility] Last Admin: 03/10/21 09:01 Dose: 95 mg Documented by: Sodium Chloride (Sodium Chloride 0.9% 10 Ml Syringe) 10 ml FLUSH ASDIRECTED PRN PRN Reason: IV Use Trazodone HCl (Trazodone 50 Mg Tab) 50 mg PO BEDTIME [facility] Last Admin: 03/09/21 21:53 Dose: 50 mg Documented by: Discontinued Medications Diphenhydramine HCl (Diphenhydramine 25 Mg Tab) 25 mg PO ONETIME ONE Stop: 03/08/21 14:14 Last Admin: 03/08/21 14:23 Dose: 25 mg Documented by: Fentanyl (Fentanyl 100 Mcg/2 Ml Sdv) 25 mcg IVPUSH ONETIME ONE; Protocol Stop: 03/07/21 00:44 Last Admin: 03/08/21 00:10 Dose: Not Given Documented by: Gabapentin (Gabapentin 100 Mg Cap) 100 mg PO BID [facility] Last Admin: 03/07/21 08:57 Dose: 100 mg Documented by: Gabapentin (Gabapentin 100 Mg Cap) 200 mg PO BID [facility] Last Admin: 03/10/21 09:00 Dose: 200 mg Documented by: Sodium Chloride (Normal Saline) 500 mls @ 15 mls/hr IV .BOLUS [facility] Last Admin: 03/07/21 00:52 Dose: 15 mls/hr Documented by: Ceftriaxone Sodium 1 gm/ (Sodium Chloride) 50 mls @ 100 mls/hr IV ONETIME ONE Stop: 03/07/21 01:58 Last Admin: 03/07/21 02:08 Dose: 100 mls/hr Documented by: Sodium Chloride (Normal Saline) 1,000 mls @ 75 mls/hr IV ASDIRECTED [facility] Last Admin: 03/08/21 05:41 Dose: 75 mls/hr Documented by: Morphine Sulfate (Morphine 2 Mg/Ml Syringe) 2 mg IVPUSH ONETIME ONE Stop: 03/07/21 00:45 Last Admin: 03/07/21 00:51 Dose: 2 mg Documented by: Ondansetron HCl (Ondansetron 4 Mg/2 Ml Sdv) 4 mg IVPUSH ONETIME ONE Stop: 03/07/21 00:46 Last Admin: 03/07/21 00:52 Dose: 4 mg Documented by: Oxycodone HCl (Oxycodone 5 Mg Tab) 5 mg PO Q4H PRN PRN Reason: Pain (moderate 4-6) Last Admin: 03/09/21 08:57 Dose: 5 mg Documented by: Pantoprazole Sodium (Pantoprazole 40 Mg Tab.Cr) 40 mg PO DAILY [facility] Potassium Chloride (Potassium Chloride 10 Meq Tab.Er) 20 meq PO ONETIME ONE Stop: 03/10/21 12:25 Tramadol HCl (Tramadol 50 Mg Tab) 100 mg PO Q4H PRN PRN Reason: Pain Last Admin: 03/08/21 09:45 Dose: 100 mg Documented by: - Exam General: Alert, Oriented Lungs: Clear to Auscultation, Normal Respiratory Effort Cardiovascular: Regular Rate, Regular Rhythm GI/Abdominal Exam: Normal Bowel Sounds, Soft, Non-Tender (Female) Exam: Other (small ulcer on labia per nursing) Extremities: No Pedal Edema - Patient Data Lab Results Last 24 hrs: Laboratory Results - last 24 hr 03/10/21 03/10/21 Range/Units 06:25 06:25 WBC 1.5 L (5.0-10.0) 10^3/uL RBC 3.45 L (4.2-5.4) 10^6/uL Hgb 8.9 L (12.0-16.0) g/dL Hct 27.8 L (37.0-47.0) % MCV 80.6 (80-100) fL MCH 25.8 L (27.0-34.0) pg MCHC 32.0 L (33.0-35.0) g/dL Plt Count 29 L* (150-450) 10^3/uL Neut % (Auto) 40.8 L (42.2-75.2) % Lymph % (Auto) 47.6 (20.5-50.1) % [facility] % (Auto) 7.5 (2-8) % Eos % (Auto) 3.4 H (1.0-3.0) % Baso % (Auto) 0.7 (0.0-1.0) % Sodium 135 L (136-145) mmol/L Potassium 3.4 L (3.5-5.1) mmol/L Chloride 103 (98-107) mmol/L Carbon Dioxide 20 L (21-32) mmol/L Anion Gap 15.4 H (7-13) mEq/L BUN 12 (7-18) mg/dL Creatinine 0.75 (0.55-1.02) mg/dL Est Cr Clr Drug Dosing 53.70 mL/min Estimated GFR (MDRD) > 60 Glucose 93 (70-99) mg/dL Calcium 7.1 L (8.5-10.1) mg/dL Result Diagrams: 03/10/21 06:25 03/10/21 06:25 [place] Results Last 24 hrs: Microbiology 03/07/21 00:25 Urine Culture - Final Urine, Voided Escherichia Coli Sepsis Event Note - Evaluation Sepsis Screening Result: Severe Sepsis Risk - Focused Exam Vital Signs: Vital Signs Temp Temp Pulse Resp BP Pulse Ox 03/10/21 12:00 98.7 F 98 22 H 93/49 L 91 L 03/10/21 08:00 98 F 54 L 16 76/46 L 94 L 03/10/21 04:00 98.4 F 87 20 108/49 L 91 L 03/10/21 01:00 99.6 F - Problem List & Annotations (1) GI bleed SNOMED Code(s): 30225578 Code(s): K92.2 - GASTROINTESTINAL HEMORRHAGE, UNSPECIFIED Status: Acute Current Visit: Yes (2) Hyperlipidemia SNOMED Code(s): 29200152 Code(s): E78.5 - HYPERLIPIDEMIA, UNSPECIFIED Status: Acute Current Visit: No Onset Date: 08/20/14 (3) UTI (urinary tract infection) SNOMED Code(s): 69129018 Code(s): N39.0 - URINARY TRACT INFECTION, SITE NOT SPECIFIED Status: Acute Current Visit: No Qualifiers: Urinary tract infection type: acute cystitis Hematuria presence: with hematuria Qualified Code(s): N30.01 - Acute cystitis with hematuria - Problem List Review Problem List Initiated/Reviewed/Updated: Yes - My Orders Last 24 Hours: My Active Orders 03/09/21 21:00 Remove Patch 1 ea TRDERM BEDTIME 03/10/21 07:00 Sodium Chloride 0.9% [Saline Flush] 10 ml FLUSH ASDIRECTED PRN 03/10/21 10:37 Lidocaine 2% [Xylocaine 2% Jelly] 0 ml MUCMEM Q4H PRN 03/10/21 21:00 Gabapentin [Neurontin] 300 mg PO BID 03/11/21 05:11 BASIC METABOLIC PANEL,BMP [CHEM] AM CBC WITH AUTO DIFF [HEME] AM 03/11/21 11:00 Remove Patch 1 ea TRDERM Q72H 03/12/21 05:11 BASIC METABOLIC PANEL,BMP [CHEM] AM CBC WITH AUTO DIFF [HEME] AM 03/13/21 05:11 BASIC METABOLIC PANEL,BMP [CHEM] AM 03/13/21 06:00 CORONAVIRUS COVID-19 [facility] [MOLEC] Routine - Plan Plan:: h/o metastatic lung ca presented with bloody diarrhea, weakness Gi bleed lower gi Bloody diarrhea resolved treat with Protonix bid acute Anemia A combination of anemia of chronic disease, anemia from acute blood loss and anemia due to chemotherapy transfused 2 units of prbc on 03/08 will follow hgb in AM Cont folic acid, iron Hyponatremia stable Uti urine cx : e coli , pansensitive Treat with ceftriaxone plan to stop soon burning sensation is likely related to labial ulcer - start lidocaine cream Metastatic lung ca Does not want further tx anemia, neutropenia, severe thrombocytopenia due to chemo therapy follow counts transfuse as needed neutropenic precautions Pain control not controlled increase Neurontin, cont trazodone cont increased oxycodone cont fentanyl patch cont iv fentanyl for severe pain Generalized weakness Pt/ot Sw consult Opted for DNR/DNI code status on admission Dvt prophylaxis Scd-s
[2021-03-10] MEDS: traZODone 50 MG Tab PO SCH (20:46)
[2021-03-10] MEDS: Sodium Chloride 0.9% 10 ML Syringe FLUSH PRN ×2 (20:49→23:33)
[2021-03-10] MEDS: cefTRIAXone 1 GM in Sodium Chloride 0.9% 50 ML IV SCH (20:50)
[2021-03-10] MEDS: fentaNYL 100 MCG/2 ML SDV IVPUSH PRN (23:33)
[2021-03-11] MEDS ORDERED: guaiFENesin 100 MG/5 ML Soln 5 ML UD Cup PO PRN (00:06)
[2021-03-11] MEDS ORDERED: LORazepam 2 MG/ML SDV IVPUSH ONE (00:06)
[2021-03-11] MEDS: Sodium Chloride 0.9% 10 ML Syringe FLUSH PRN ×2 (00:23→20:41)
[2021-03-11] MEDS: Ondansetron 4 MG/2 ML SDV IVPUSH PRN (00:23)
[2021-03-11] MEDS: Pantoprazole 40 MG Tab.CR PO SCH ×2 (06:33→20:55)
[2021-03-11] MEDS: Acetaminophen 325 MG Tab PO PRN (06:42)
[2021-03-11 07:06] LABS: ANION GAP 15.4 mEq/L (7-13); CHLORIDE,CL 102 mmol/L (98-107); SODIUM,NA 133 mmol/L (136-145)
[2021-03-11] MEDS ORDERED: fentaNYL 25 MCG/HR Transdermal Patch TRDERM SCH (09:36)
[2021-03-11] MEDS: fentaNYL 100 MCG/2 ML SDV IVPUSH PRN ×2 (09:50→20:39)
--- NOTE | 2021-03-11 09:50 | PCM.PN ---
- General Info Date of Service: 03/11/21 Admission Dx/Problem (Free Text): Admission Diagnosis/Problem Admission Diagnosis/Problem Cancer of right lung Subjective Update: continued to have pain in r. chest, anterior and prosterior worse with cough, severe episodically no associated fever no more bloody diarrhea has c/o hemoptysis and no hematuria no vomiting had urinary retention, had to place smith cath Functional Status: Reports: Tolerating Diet. Denies: Pain Controlled, Urinating (catheter) - Review of Systems General: Reports: Weakness. Denies: Fever Pulmonary: Reports: Pleuritic Chest Pain (with coough), Cough. Denies: Shortness of Breath Cardiovascular: Denies: Palpitations, Edema Gastrointestinal: Denies: Abdominal Pain Skin: Denies: Bruising Neurological: Denies: Confusion - Patient Data Vitals - Most Recent: Last Vital Signs Temp 101.3 F H 03/11/21 08:00 Pulse 91 03/11/21 08:00 Resp 18 03/11/21 08:00 BP 93/64 03/11/21 08:00 Pulse Ox 80 L 03/11/21 08:00 Weight - Most Recent: 109 lb I&O - Last 24 Hours: Intake & Output 03/10/21 03/11/21 03/11/21 22:59 06:59 14:59 Intake Total 310 500 Output Total 900 Balance 310 -400 Lab Results Last 24 Hours: Laboratory Results - last 24 hr 03/11/21 03/11/21 Range/Units 06:25 06:25 WBC 3.2 L (5.0-10.0) 10^3/uL RBC 3.78 L (4.2-5.4) 10^6/uL Hgb 9.8 L (12.0-16.0) g/dL Hct 30.9 L (37.0-47.0) % MCV 81.7 (80-100) fL MCH 25.9 L (27.0-34.0) pg MCHC 31.7 L (33.0-35.0) g/dL Plt Count 19 L* (150-450) 10^3/uL Neut % (Auto) 64.9 (42.2-75.2) % Lymph % (Auto) 29.5 (20.5-50.1) % [place] % (Auto) 3.4 (2-8) % Eos % (Auto) 1.6 (1.0-3.0) % Baso % (Auto) 0.6 (0.0-1.0) % Add Manual Diff Yes Neutrophils % (Manual) 49 (42-75) % Band Neutrophils % 18 % Lymphocytes % (Manual) 28 (20-50) % Monocytes % (Manual) 4 (2-8) % Eosinophils % (Manual) 1 (1-3) % Platelet Estimate Marked dec Hypochromasia 1+ slight Microcytosis 1+ slight Sodium 133 L (136-145) mmol/L Potassium 4.4 (3.5-5.1) mmol/L Chloride 102 (98-107) mmol/L Carbon Dioxide 20 L (21-32) mmol/L Anion Gap 15.4 H (7-13) mEq/L BUN 12 (7-18) mg/dL Creatinine 0.71 (0.55-1.02) mg/dL Est Cr Clr Drug Dosing 56.72 mL/min Estimated GFR (MDRD) > 60 Glucose 109 H (70-99) mg/dL Calcium 7.8 L (8.5-10.1) mg/dL Med Orders - Current: Current Medications Acetaminophen (Acetaminophen 325 Mg Tab) 650 mg PO Q4H PRN PRN Reason: Pain (Mild 1-3)/fever Last Admin: 03/11/21 06:42 Dose: 650 mg Documented by: Clonazepam (Clonazepam 0.5 Mg Tab) 0.5 mg PO Q6H PRN PRN Reason: Anxiety Last Admin: 03/10/21 21:50 Dose: 0.5 mg Documented by: Fentanyl (Fentanyl 100 Mcg/2 Ml Sdv) 25 mcg IVPUSH Q2H PRN PRN Reason: severe pain Last Admin: 03/10/21 23:33 Dose: 25 mcg Documented by: Fentanyl (Fentanyl 25 Mcg/Hr Transdermal Patch) 25 mcg TRDERM Q72H [facility] Ferrous Sulfate (Ferrous Sulfate 325 Mg Tab) 325 mg PO DAILY [facility] Last Admin: 03/10/21 09:01 Dose: 325 mg Documented by: Folic Acid (Folic Acid 1 Mg Tab) 1 mg PO DAILY [facility] Last Admin: 03/10/21 09:00 Dose: 1 mg Documented by: Gabapentin (Gabapentin 100 Mg Cap) 300 mg PO BID [facility] Last Admin: 03/10/21 20:46 Dose: 300 mg Documented by: Guaifenesin/Dextromethorphan (Guaifenesin/Dextromethorphan 100-10 Mg/5 Ml Soln 5 Ml Cup) 10 ml PO TID [facility] Ceftriaxone Sodium 1 gm/ (Sodium Chloride) 50 mls @ 100 mls/hr IV Q24H [facility] Last Infusion: 03/10/21 21:52 Dose: Infused Documented by: Lidocaine (Lidocaine 5% 700 Mg Patch) 700 mg TRDERM DAILY [facility] Last Admin: 03/10/21 09:10 Dose: 700 mg Documented by: Lidocaine HCl (Lidocaine 2% Jelly 5 Ml Tube) 0 ml MUCMEM Q4H PRN PRN Reason: soreness of labial ulcer Last Admin: 03/10/21 20:57 Dose: 1 applic Documented by: Miscellaneous Information (Check Patch) 1 ea TRDERM BID [facility] Last Admin: 03/10/21 20:46 Dose: 1 ea Documented by: Miscellaneous Information (Remove Patch) 1 ea TRDERM Q72H [facility] Miscellaneous Information (Remove Patch) 1 ea TRDERM BEDTIME [facility] Last Admin: 03/10/21 20:47 Dose: 1 ea Documented by: Ondansetron HCl (Ondansetron 4 Mg/2 Ml Sdv) 4 mg IVPUSH Q6H PRN PRN Reason: Nausea/Vomiting Last Admin: 03/11/21 00:23 Dose: 4 mg Documented by: Oxybutynin Chloride (Oxybutynin 5 Mg Tab) 5 mg PO TID [facility] Last Admin: 03/10/21 20:46 Dose: 5 mg Documented by: Oxycodone HCl (Oxycodone 5 Mg Tab) 10 mg PO Q4H PRN PRN Reason: Pain (moderate 4-6) Last Admin: 03/10/21 20:44 Dose: 10 mg Documented by: Pantoprazole Sodium (Pantoprazole 40 Mg Tab.Cr) 40 mg PO BID@0600,2100 [facility] Last Admin: 03/11/21 06:33 Dose: 40 mg Documented by: Phenazopyridine HCl (Phenazopyridine 95 Mg Tab) 95 mg PO DAILY [facility] Last Admin: 03/10/21 09:01 Dose: 95 mg Documented by: Sodium Chloride (Sodium Chloride 0.9% 10 Ml Syringe) 10 ml FLUSH ASDIRECTED PRN PRN Reason: IV Use Last Admin: 03/11/21 00:23 Dose: 10 ml Documented by: Trazodone HCl (Trazodone 50 Mg Tab) 50 mg PO BEDTIME [facility] Last Admin: 03/10/21 20:46 Dose: 50 mg Documented by: Discontinued Medications Diphenhydramine HCl (Diphenhydramine 25 Mg Tab) 25 mg PO ONETIME ONE Stop: 03/08/21 14:14 Last Admin: 03/08/21 14:23 Dose: 25 mg Documented by: Fentanyl (Fentanyl 100 Mcg/2 Ml Sdv) 25 mcg IVPUSH ONETIME ONE; Protocol Stop: 03/07/21 00:44 Last Admin: 03/08/21 00:10 Dose: Not Given Documented by: Fentanyl (Fentanyl 25 Mcg/Hr Transdermal Patch) 25 mcg TRDERM Q72H [facility] Last Admin: 03/08/21 11:06 Dose: 25 mcg Documented by: Fentanyl (Fentanyl 25 Mcg/Hr Transdermal Patch) 50 mcg TRDERM Q72H [facility] Gabapentin (Gabapentin 100 Mg Cap) 100 mg PO BID [facility] Last Admin: 03/07/21 08:57 Dose: 100 mg Documented by: Gabapentin (Gabapentin 100 Mg Cap) 200 mg PO BID [facility] Last Admin: 03/10/21 09:00 Dose: 200 mg Documented by: Guaifenesin (Guaifenesin 100 Mg/5 Ml Soln 5 Ml Ud Cup) 100 mg PO Q6H PRN PRN Reason: Cough Last Admin: 03/10/21 23:39 Dose: 100 mg Documented by: Guaifenesin (Guaifenesin 100 Mg/5 Ml Soln 5 Ml Ud Cup) 100 mg PO Q4H PRN PRN Reason: Cough Last Admin: 03/11/21 06:42 Dose: 100 mg Documented by: Sodium Chloride (Normal Saline) 500 mls @ 15 mls/hr IV .BOLUS [facility] Last Admin: 03/07/21 00:52 Dose: 15 mls/hr Documented by: Ceftriaxone Sodium 1 gm/ (Sodium Chloride) 50 mls @ 100 mls/hr IV ONETIME ONE Stop: 03/07/21 01:58 Last Admin: 03/07/21 02:08 Dose: 100 mls/hr Documented by: Sodium Chloride (Normal Saline) 1,000 mls @ 75 mls/hr IV ASDIRECTED [facility] Last Admin: 03/08/21 05:41 Dose: 75 mls/hr Documented by: Lorazepam (Lorazepam 2 Mg/Ml Sdv) 1 mg IVPUSH ONETIME ONE Stop: 03/11/21 00:07 Last Admin: 03/11/21 00:27 Dose: 1 mg Documented by: Morphine Sulfate (Morphine 2 Mg/Ml Syringe) 2 mg IVPUSH ONETIME ONE Stop: 03/07/21 00:45 Last Admin: 03/07/21 00:51 Dose: 2 mg Documented by: Ondansetron HCl (Ondansetron 4 Mg/2 Ml Sdv) 4 mg IVPUSH ONETIME ONE Stop: 03/07/21 00:46 Last Admin: 03/07/21 00:52 Dose: 4 mg Documented by: Oxycodone HCl (Oxycodone 5 Mg Tab) 5 mg PO Q4H PRN PRN Reason: Pain (moderate 4-6) Last Admin: 03/09/21 08:57 Dose: 5 mg Documented by: Pantoprazole Sodium (Pantoprazole 40 Mg Tab.Cr) 40 mg PO DAILY [facility] Potassium Chloride (Potassium Chloride 10 Meq Tab.Er) 20 meq PO ONETIME ONE Stop: 03/10/21 14:46 Last Admin: 03/10/21 14:55 Dose: 20 meq Documented by: Tramadol HCl (Tramadol 50 Mg Tab) 100 mg PO Q4H PRN PRN Reason: Pain Last Admin: 03/08/21 09:45 Dose: 100 mg Documented by: - Exam Urinary Catheter Total Time: 0Days 11Hours General: Alert, Oriented Lungs: Normal Respiratory Effort, Decreased Breath Sounds Cardiovascular: Regular Rate, Regular Rhythm GI/Abdominal Exam: Normal Bowel Sounds, Soft, Non-Tender (Female) Exam: Other (smith catheter) Extremities: No Pedal Edema Skin: Warm, Dry Neurological: No New Focal Deficit Psy/Mental Status: Alert, Normal Affect, Normal Mood - Patient Data Lab Results Last 24 hrs: Laboratory Results - last 24 hr 03/11/21 03/11/21 Range/Units 06:25 06:25 WBC 3.2 L (5.0-10.0) 10^3/uL RBC 3.78 L (4.2-5.4) 10^6/uL Hgb 9.8 L (12.0-16.0) g/dL Hct 30.9 L (37.0-47.0) % MCV 81.7 (80-100) fL MCH 25.9 L (27.0-34.0) pg MCHC 31.7 L (33.0-35.0) g/dL Plt Count 19 L* (150-450) 10^3/uL Neut % (Auto) 64.9 (42.2-75.2) % Lymph % (Auto) 29.5 (20.5-50.1) % [place] % (Auto) 3.4 (2-8) % Eos % (Auto) 1.6 (1.0-3.0) % Baso % (Auto) 0.6 (0.0-1.0) % Add Manual Diff Yes Neutrophils % (Manual) 49 (42-75) % Band Neutrophils % 18 % Lymphocytes % (Manual) 28 (20-50) % Monocytes % (Manual) 4 (2-8) % Eosinophils % (Manual) 1 (1-3) % Platelet Estimate Marked dec Hypochromasia 1+ slight Microcytosis 1+ slight Sodium 133 L (136-145) mmol/L Potassium 4.4 (3.5-5.1) mmol/L Chloride 102 (98-107) mmol/L Carbon Dioxide 20 L (21-32) mmol/L Anion Gap 15.4 H (7-13) mEq/L BUN 12 (7-18) mg/dL Creatinine 0.71 (0.55-1.02) mg/dL Est Cr Clr Drug Dosing 56.72 mL/min Estimated GFR (MDRD) > 60 Glucose 109 H (70-99) mg/dL Calcium 7.8 L (8.5-10.1) mg/dL Result Diagrams: 03/11/21 06:25 03/11/21 06:25 Sepsis Event Note - Evaluation Sepsis Screening Result: Severe Sepsis Risk - Focused Exam Vital Signs: Vital Signs Temp Temp Pulse Resp BP BP Pulse Ox 03/11/21 08:00 101.3 F H 91 18 93/64 80 L 03/11/21 06:45 03/11/21 06:42 101.5 F H 03/11/21 06:40 101.5 F H 120 H 24 H 81/54 L 90 L 03/11/21 00:00 98.4 F 97 20 102/65 93 L Pulse Ox 03/11/21 08:00 03/11/21 06:45 90 L 03/11/21 06:42 03/11/21 06:40 03/11/21 00:00 - Problem List & Annotations (1) GI bleed SNOMED Code(s): 73346039 Code(s): K92.2 - GASTROINTESTINAL HEMORRHAGE, UNSPECIFIED Status: Acute Current Visit: Yes (2) Hyperlipidemia SNOMED Code(s): 67513120 Code(s): E78.5 - HYPERLIPIDEMIA, UNSPECIFIED Status: Acute Current Visit: No Onset Date: 08/20/14 (3) UTI (urinary tract infection) SNOMED Code(s): 72439334 Code(s): N39.0 - URINARY TRACT INFECTION, SITE NOT SPECIFIED Status: Acute Current Visit: No Qualifiers: Urinary tract infection type: acute cystitis Hematuria presence: with hematuria Qualified Code(s): N30.01 - Acute cystitis with hematuria (4) Urinary retention SNOMED Code(s): 679818142 Code(s): R33.9 - RETENTION OF URINE, UNSPECIFIED Status: Acute Current Visit: Yes - Problem List Review Problem List Initiated/Reviewed/Updated: Yes - My Orders Last 24 Hours: My Active Orders 03/10/21 10:37 Lidocaine 2% [Xylocaine 2% Jelly] 0 ml MUCMEM Q4H PRN 03/10/21 15:43 Urinary Catheter Assessment [RC] 03/10/21 15:45 Insert Smith Catheter [Insert Urinary Catheter] [OM.PC] Q24H 03/10/21 21:00 Gabapentin [Neurontin] 300 mg PO BID 03/11/21 09:43 fentaNYL [Duragesic] 25 mcg TRDERM Q72H 03/11/21 09:44 Transfuse Platelets [COMM] Routine 03/11/21 11:00 Remove Patch 1 ea TRDERM Q72H 03/11/21 14:00 Dextromethorphan/guaiFENesin [Robitussin DM] 10 ml PO TID 03/12/21 05:11 BASIC METABOLIC PANEL,BMP [CHEM] AM CBC WITH AUTO DIFF [HEME] AM 03/13/21 05:11 BASIC METABOLIC PANEL,BMP [CHEM] AM 03/13/21 06:00 CORONAVIRUS COVID-19 BENNY [MOLEC] Routine - Plan Plan:: h/o metastatic lung ca presented with bloody diarrhea, weakness Gi bleed lower gi Bloody diarrhea resolved treat with Protonix bid acute Anemia A combination of anemia of chronic disease, anemia from acute blood loss and anemia due to chemotherapy transfused 2 units of prbc on 03/08 will follow hgb in AM Cont folic acid, iron anemia, neutropenia, severe thrombocytopenia due to chemo therapy thrombocytopenia is severe - has had recent bloody BMs, c/o hemoptysis, has violent cough will transfuse Plt today follow counts transfuse as needed neutropenic precautions Hyponatremia stable Uti urine cx : e coli , pansensitive Treat with ceftriaxone plan to stop soon urinary retention placed smith cath Metastatic lung ca Does not want further tx Pain control not controlled increased Neurontin, cont trazodone cont increased oxycodone cont fentanyl patch increase lidoderm patch add scheduled robitussin DM cont iv fentanyl for severe pain Generalized weakness Pt/ot Sw consult Opted for DNR/DNI code status on admission Dvt prophylaxis Scd-s
[2021-03-11] MEDS: ClonazePAM 0.5 MG Tab PO PRN ×2 (09:53→20:55)
[2021-03-11] MEDS: Gabapentin 100 MG Cap PO SCH ×2 (09:54→20:54)
[2021-03-11] MEDS: Phenazopyridine 95 MG Tab PO SCH (09:55)
[2021-03-11] MEDS: Ferrous Sulfate 325 MG Tab PO SCH (09:55)
[2021-03-11] MEDS: Oxybutynin 5 MG Tab PO SCH ×3 (09:55→20:55)
[2021-03-11] MEDS: Folic Acid 1 MG Tab PO SCH (09:55)
[2021-03-11] MEDS: Check Patch TRDERM SCH ×2 (09:58→20:55)
[2021-03-11] MEDS: Lidocaine 5% 700 MG Patch TRDERM SCH (10:03)
[2021-03-11] MEDS: fentaNYL 25 MCG/HR Transdermal Patch TRDERM SCH ×2 (10:51→11:16)
[2021-03-11] MEDS: oxyCODONE 5 MG Tab PO PRN ×2 (12:40→18:40)
[2021-03-11] MEDS: guaiFENesin/Dextromethorphan 100-10 MG/5 ML Soln 5 ML Cup PO SCH ×2 (13:46→21:20)
[2021-03-11] MEDS: cefTRIAXone 1 GM in Sodium Chloride 0.9% 50 ML IV SCH (20:41)
[2021-03-11] MEDS: traZODone 50 MG Tab PO SCH (20:54)
[2021-03-12] MEDS: fentaNYL 100 MCG/2 ML SDV IVPUSH PRN ×2 (01:24→19:55)
[2021-03-12] MEDS: Sodium Chloride 0.9% 10 ML Syringe FLUSH PRN (01:25)
[2021-03-12 07:48] LABS: ANION GAP 13.2 mEq/L (7-13); CHLORIDE,CL 103 mmol/L (98-107); SODIUM,NA 134 mmol/L (136-145)
[2021-03-12] MEDS: guaiFENesin/Dextromethorphan 100-10 MG/5 ML Soln 5 ML Cup PO SCH ×3 (08:14→22:04)
[2021-03-12] MEDS: Gabapentin 100 MG Cap PO SCH (08:14)
[2021-03-12] MEDS: Oxybutynin 5 MG Tab PO SCH ×3 (08:14→22:07)
[2021-03-12] MEDS: Phenazopyridine 95 MG Tab PO SCH (08:14)
[2021-03-12] MEDS: Ferrous Sulfate 325 MG Tab PO SCH (08:14)
[2021-03-12] MEDS: Folic Acid 1 MG Tab PO SCH (08:14)
[2021-03-12] MEDS: Acetaminophen 325 MG Tab PO PRN ×2 (08:15→13:50)
[2021-03-12] MEDS ORDERED: Lidocaine 5% 700 MG Patch TRDERM SCH (09:00)
[2021-03-12] MEDS: Pantoprazole 40 MG Tab.CR PO SCH ×2 (10:12→22:07)
--- NOTE | 2021-03-12 11:41 | PCM.PN ---
- General Info Date of Service: 03/12/21 Admission Dx/Problem (Free Text): Admission Diagnosis/Problem Admission Diagnosis/Problem Cancer of right lung Subjective Update: continued to have pain in r. chest, anterior and prosterior worse with cough, severe episodically no associated fever required increase in pain meds now sleepy has low oral and fluid intake smith cath with concentrated lui fluid - Review of Systems General: Reports: Weakness. Denies: Fever Pulmonary: Denies: Shortness of Breath Cardiovascular: Reports: Chest Pain Neurological: Reports: Other (lethargy) Psychiatric: Reports: Anxiety - Patient Data Vitals - Most Recent: Last Vital Signs Temp 100.3 F 03/12/21 08:45 Pulse 108 H 03/12/21 08:32 Resp 22 H 03/12/21 08:32 BP 136/42 L 03/12/21 08:32 Pulse Ox 92 L 03/12/21 08:32 Weight - Most Recent: 109 lb I&O - Last 24 Hours: Intake & Output 03/11/21 03/12/21 03/12/21 22:59 06:59 14:59 Intake Total 45 Output Total 200 200 Balance -155 -200 Lab Results Last 24 Hours: Laboratory Results - last 24 hr 03/11/21 03/12/21 03/12/21 Range/Units 06:25 06:10 06:10 WBC 5.4 (5.0-10.0) 10^3/uL RBC 3.30 L (4.2-5.4) 10^6/uL Hgb 8.4 L (12.0-16.0) g/dL Hct 27.5 L (37.0-47.0) % MCV 83.3 (80-100) fL MCH 25.5 L (27.0-34.0) pg MCHC 30.5 L (33.0-35.0) g/dL Plt Count 36 L* (150-450) 10^3/uL Neut % (Auto) 81.6 H (42.2-75.2) % Lymph % (Auto) 13.6 L (20.5-50.1) % [place] % (Auto) 3.7 (2-8) % Eos % (Auto) 0.9 L (1.0-3.0) % Baso % (Auto) 0.2 (0.0-1.0) % Sodium 134 L (136-145) mmol/L Potassium 5.2 H (3.5-5.1) mmol/L Chloride 103 (98-107) mmol/L Carbon Dioxide 23 (21-32) mmol/L Anion Gap 13.2 H (7-13) mEq/L BUN 17 (7-18) mg/dL Creatinine 0.74 (0.55-1.02) mg/dL Est Cr Clr Drug Dosing 54.42 mL/min Estimated GFR (MDRD) > 60 Glucose 116 H (70-99) mg/dL Calcium 7.9 L (8.5-10.1) mg/dL Blood Type A POSITIVE Med Orders - Current: Current Medications Acetaminophen (Acetaminophen 325 Mg Tab) 650 mg PO Q4H PRN PRN Reason: Pain (Mild 1-3)/fever Last Admin: 03/12/21 08:15 Dose: 650 mg Documented by: Clonazepam (Clonazepam 0.5 Mg Tab) 0.5 mg PO Q6H PRN PRN Reason: Anxiety Last Admin: 03/11/21 20:55 Dose: 0.5 mg Documented by: Fentanyl (Fentanyl 100 Mcg/2 Ml Sdv) 25 mcg IVPUSH Q2H PRN PRN Reason: severe pain Last Admin: 03/12/21 01:24 Dose: 25 mcg Documented by: Ferrous Sulfate (Ferrous Sulfate 325 Mg Tab) 325 mg PO DAILY [facility] Last Admin: 03/12/21 08:14 Dose: 325 mg Documented by: Folic Acid (Folic Acid 1 Mg Tab) 1 mg PO DAILY [facility] Last Admin: 03/12/21 08:14 Dose: 1 mg Documented by: Guaifenesin/Dextromethorphan (Guaifenesin/Dextromethorphan 100-10 Mg/5 Ml Soln 5 Ml Cup) 10 ml PO TID [facility] Last Admin: 03/12/21 08:14 Dose: 10 ml Documented by: Ceftriaxone Sodium 1 gm/ (Sodium Chloride) 50 mls @ 100 mls/hr IV Q24H [facility] Last Admin: 03/11/21 20:41 Dose: 100 mls/hr Documented by: Sodium Chloride (Normal Saline) 1,000 mls @ 75 mls/hr IV ASDIRECTED [facility] Lidocaine (Lidocaine 5% 700 Mg Patch) 1,400 mg TRDERM DAILY [facility] Last Admin: 03/12/21 08:13 Dose: 1,400 mg Documented by: Lidocaine HCl (Lidocaine 2% Jelly 5 Ml Tube) 0 ml MUCMEM Q4H PRN PRN Reason: soreness of labial ulcer Last Admin: 03/10/21 20:57 Dose: 1 applic Documented by: Miscellaneous Information (Check Patch) 1 ea TRDERM BID [facility] Last Admin: 03/11/21 20:55 Dose: 1 ea Documented by: Miscellaneous Information (Remove Patch) 1 ea TRDERM Q72H [facility] Last Admin: 03/11/21 11:18 Dose: 1 ea Documented by: Miscellaneous Information (Remove Patch) 2 ea TRDERM BEDTIME [facility] Last Admin: 03/11/21 20:55 Dose: 2 ea Documented by: Ondansetron HCl (Ondansetron 4 Mg/2 Ml Sdv) 4 mg IVPUSH Q6H PRN PRN Reason: Nausea/Vomiting Last Admin: 03/11/21 00:23 Dose: 4 mg Documented by: Oxybutynin Chloride (Oxybutynin 5 Mg Tab) 5 mg PO TID [facility] Last Admin: 03/12/21 08:14 Dose: 5 mg Documented by: Oxycodone HCl (Oxycodone 5 Mg Tab) 10 mg PO Q4H PRN PRN Reason: Pain (moderate 4-6) Last Admin: 03/11/21 18:40 Dose: 10 mg Documented by: Pantoprazole Sodium (Pantoprazole 40 Mg Tab.Cr) 40 mg PO BID@0600,2100 [facility] Last Admin: 03/12/21 10:12 Dose: Not Given Documented by: Sodium Chloride (Sodium Chloride 0.9% 10 Ml Syringe) 10 ml FLUSH ASDIRECTED PRN PRN Reason: IV Use Last Admin: 03/12/21 01:25 Dose: 10 ml Documented by: Trazodone HCl (Trazodone 50 Mg Tab) 50 mg PO BEDTIME [facility] Last Admin: 03/11/21 20:54 Dose: 50 mg Documented by: Discontinued Medications Diphenhydramine HCl (Diphenhydramine 25 Mg Tab) 25 mg PO ONETIME ONE Stop: 03/08/21 14:14 Last Admin: 03/08/21 14:23 Dose: 25 mg Documented by: Fentanyl (Fentanyl 100 Mcg/2 Ml Sdv) 25 mcg IVPUSH ONETIME ONE; Protocol Stop: 03/07/21 00:44 Last Admin: 03/08/21 00:10 Dose: Not Given Documented by: Fentanyl (Fentanyl 25 Mcg/Hr Transdermal Patch) 25 mcg TRDERM Q72H [facility] Last Admin: 03/08/21 11:06 Dose: 25 mcg Documented by: Fentanyl (Fentanyl 25 Mcg/Hr Transdermal Patch) 50 mcg TRDERM Q72H [facility] Last Admin: 03/11/21 10:59 Dose: Not Given Documented by: Fentanyl (Fentanyl 25 Mcg/Hr Transdermal Patch) 25 mcg TRDERM Q72H [facility] Last Admin: 03/11/21 11:16 Dose: 25 mcg Documented by: Gabapentin (Gabapentin 100 Mg Cap) 100 mg PO BID [facility] Last Admin: 03/07/21 08:57 Dose: 100 mg Documented by: Gabapentin (Gabapentin 100 Mg Cap) 200 mg PO BID [facility] Last Admin: 03/10/21 09:00 Dose: 200 mg Documented by: Gabapentin (Gabapentin 100 Mg Cap) 300 mg PO BID [facility] Last Admin: 03/12/21 08:14 Dose: 300 mg Documented by: Guaifenesin (Guaifenesin 100 Mg/5 Ml Soln 5 Ml Ud Cup) 100 mg PO Q6H PRN PRN Reason: Cough Last Admin: 03/10/21 23:39 Dose: 100 mg Documented by: Guaifenesin (Guaifenesin 100 Mg/5 Ml Soln 5 Ml Ud Cup) 100 mg PO Q4H PRN PRN Reason: Cough Last Admin: 03/11/21 06:42 Dose: 100 mg Documented by: Sodium Chloride (Normal Saline) 500 mls @ 15 mls/hr IV .BOLUS [facility] Last Admin: 03/07/21 00:52 Dose: 15 mls/hr Documented by: Ceftriaxone Sodium 1 gm/ (Sodium Chloride) 50 mls @ 100 mls/hr IV ONETIME ONE Stop: 03/07/21 01:58 Last Admin: 03/07/21 02:08 Dose: 100 mls/hr Documented by: Sodium Chloride (Normal Saline) 1,000 mls @ 75 mls/hr IV ASDIRECTED [facility] Last Admin: 03/08/21 05:41 Dose: 75 mls/hr Documented by: Lidocaine (Lidocaine 5% 700 Mg Patch) 700 mg TRDERM DAILY [facility] Last Admin: 03/11/21 10:03 Dose: 700 mg Documented by: Lorazepam (Lorazepam 2 Mg/Ml Sdv) 1 mg IVPUSH ONETIME ONE Stop: 03/11/21 00:07 Last Admin: 03/11/21 00:27 Dose: 1 mg Documented by: Miscellaneous Information (Remove Patch) 1 ea TRDERM BEDTIME [facility] Last Admin: 03/10/21 20:47 Dose: 1 ea Documented by: Morphine Sulfate (Morphine 2 Mg/Ml Syringe) 2 mg IVPUSH ONETIME ONE Stop: 03/07/21 00:45 Last Admin: 03/07/21 00:51 Dose: 2 mg Documented by: Ondansetron HCl (Ondansetron 4 Mg/2 Ml Sdv) 4 mg IVPUSH ONETIME ONE Stop: 03/07/21 00:46 Last Admin: 03/07/21 00:52 Dose: 4 mg Documented by: Oxycodone HCl (Oxycodone 5 Mg Tab) 5 mg PO Q4H PRN PRN Reason: Pain (moderate 4-6) Last Admin: 03/09/21 08:57 Dose: 5 mg Documented by: Pantoprazole Sodium (Pantoprazole 40 Mg Tab.Cr) 40 mg PO DAILY [facility] Phenazopyridine HCl (Phenazopyridine 95 Mg Tab) 95 mg PO DAILY [facility] Last Admin: 03/12/21 08:14 Dose: 95 mg Documented by: Potassium Chloride (Potassium Chloride 10 Meq Tab.Er) 20 meq PO ONETIME ONE Stop: 03/10/21 14:46 Last Admin: 03/10/21 14:55 Dose: 20 meq Documented by: Tramadol HCl (Tramadol 50 Mg Tab) 100 mg PO Q4H PRN PRN Reason: Pain Last Admin: 03/08/21 09:45 Dose: 100 mg Documented by: - Exam Urinary Catheter Total Time: 1Days 5Hours General: Sedated, Other (arousable briefly) Neck: Supple Lungs: Normal Respiratory Effort, Decreased Breath Sounds Cardiovascular: Regular Rate, Regular Rhythm GI/Abdominal Exam: Normal Bowel Sounds, Soft, Non-Tender Extremities: No Pedal Edema Skin: Warm, Dry Neurological: Other (lethargic) - Patient Data Lab Results Last 24 hrs: Laboratory Results - last 24 hr 03/11/21 03/12/21 03/12/21 Range/Units 06:25 06:10 06:10 WBC 5.4 (5.0-10.0) 10^3/uL RBC 3.30 L (4.2-5.4) 10^6/uL Hgb 8.4 L (12.0-16.0) g/dL Hct 27.5 L (37.0-47.0) % MCV 83.3 (80-100) fL MCH 25.5 L (27.0-34.0) pg MCHC 30.5 L (33.0-35.0) g/dL Plt Count 36 L* (150-450) 10^3/uL Neut % (Auto) 81.6 H (42.2-75.2) % Lymph % (Auto) 13.6 L (20.5-50.1) % [place] % (Auto) 3.7 (2-8) % Eos % (Auto) 0.9 L (1.0-3.0) % Baso % (Auto) 0.2 (0.0-1.0) % Sodium 134 L (136-145) mmol/L Potassium 5.2 H (3.5-5.1) mmol/L Chloride 103 (98-107) mmol/L Carbon Dioxide 23 (21-32) mmol/L Anion Gap 13.2 H (7-13) mEq/L BUN 17 (7-18) mg/dL Creatinine 0.74 (0.55-1.02) mg/dL Est Cr Clr Drug Dosing 54.42 mL/min Estimated GFR (MDRD) > 60 Glucose 116 H (70-99) mg/dL Calcium 7.9 L (8.5-10.1) mg/dL Blood Type A POSITIVE Result Diagrams: 03/12/21 06:10 03/12/21 06:10 Sepsis Event Note - Evaluation Sepsis Screening Result: No Definite Risk - Focused Exam Vital Signs: Vital Signs Temp Temp Pulse Resp BP BP Pulse Ox 03/12/21 08:45 100.3 F 03/12/21 08:32 101.7 F H 108 H 22 H 136/42 L 92 L 03/12/21 08:15 101.7 F H 03/12/21 04:00 100.8 F H 106 H 18 123/44 L 84 L 03/12/21 00:00 98 F 109 H 18 140/47 L 89 L - Problem List & Annotations (1) GI bleed SNOMED Code(s): 80985062 Code(s): K92.2 - GASTROINTESTINAL HEMORRHAGE, UNSPECIFIED Status: Acute Current Visit: Yes (2) Hyperlipidemia SNOMED Code(s): 32020123 Code(s): E78.5 - HYPERLIPIDEMIA, UNSPECIFIED Status: Acute Current Visit: No Onset Date: 08/20/14 (3) UTI (urinary tract infection) SNOMED Code(s): 12801171 Code(s): N39.0 - URINARY TRACT INFECTION, SITE NOT SPECIFIED Status: Acute Current Visit: No Qualifiers: Urinary tract infection type: acute cystitis Hematuria presence: with hematuria Qualified Code(s): N30.01 - Acute cystitis with hematuria (4) Urinary retention SNOMED Code(s): 482396323 Code(s): R33.9 - RETENTION OF URINE, UNSPECIFIED Status: Acute Current Visit: Yes - Problem List Review Problem List Initiated/Reviewed/Updated: Yes - My Orders Last 24 Hours: My Active Orders 03/11/21 11:00 Remove Patch 1 ea TRDERM Q72H 03/11/21 14:00 Dextromethorphan/guaiFENesin [Robitussin DM] 10 ml PO TID 03/11/21 20:44 Remove Patch 2 ea TRDERM BEDTIME 03/11/21 21:52 Renew/Continue Urinary Catheter [OM.PC] Routine 03/12/21 09:00 Lidocaine 5% [Lidoderm 5%] 1,400 mg TRDERM DAILY 03/12/21 11:30 Sodium Chloride 0.9% @ 75 MLS/HR(1000ml) Sodium Chloride 0.9% [Normal Saline] 1,000 ml IV ASDIRECTED 03/12/21 16:00 BASIC METABOLIC PANEL,BMP [CHEM] Timed 03/13/21 05:11 BASIC METABOLIC PANEL,BMP [CHEM] AM 03/13/21 06:00 CORONAVIRUS COVID-19 BENNY [MOLEC] Routine - Plan Plan:: h/o metastatic lung ca presented with bloody diarrhea, weakness Gi bleed lower gi Bloody diarrhea resolved treat with Protonix - switch to daily acute Anemia A combination of anemia of chronic disease, anemia from acute blood loss and anemia due to chemotherapy transfused 2 units of prbc on 03/08 will follow hgb in AM Cont folic acid, iron anemia, neutropenia, severe thrombocytopenia due to chemo therapy thrombocytopenia is severe - has had recent bloody BMs, c/o hemoptysis, has violent cough transfused 1 unit Plt on 03/11/21 follow counts transfuse as needed neutropenic precautions Hyponatremia stable Uti urine cx : e coli , pansensitive Treat with ceftriaxone plan to stop soon urinary retention placed smith cath Metastatic lung ca Does not want further tx Pain control difficult to control now appears oversedated remove fentanyl patch stop neurontin cont trazodone cont increased oxycodone prn cont 2x lidoderm patch add scheduled robitussin DM cont iv fentanyl for severe pain Generalized weakness Pt/ot Sw consult Opted for DNR/DNI code status on admission Dvt prophylaxis Scd-s
[2021-03-12] MEDS: Sodium Chloride 0.9% 1,000 ML IV SCH (13:22)
[2021-03-12] MEDS: oxyCODONE 5 MG Tab PO PRN ×2 (14:20→22:07)
[2021-03-12 17:42] LABS: ANION GAP 9.1 mEq/L (7-13); CHLORIDE,CL 104 mmol/L (98-107); SODIUM,NA 134 mmol/L (136-145)
[2021-03-12] MEDS: Check Patch TRDERM SCH (20:43)
[2021-03-12] MEDS: cefTRIAXone 1 GM in Sodium Chloride 0.9% 50 ML IV SCH (21:58)
[2021-03-12] MEDS: traZODone 50 MG Tab PO SCH (22:03)
[2021-03-12] MEDS: ClonazePAM 0.5 MG Tab PO PRN (22:37)
[2021-03-13] MEDS: Sodium Chloride 0.9% 1,000 ML IV SCH (02:11)
[2021-03-13] MEDS: Acetaminophen 325 MG Tab PO PRN (02:27)
[2021-03-13 03:25] VITALS: BP 123/81; PULSE 107
--- NOTE | 2021-03-13 08:28 | PCM.DCSUM1 ---
Discharge Summary - Hospital Course Free Text/Narrative:: h/o metastatic lung ca presented with bloody diarrhea, weakness Gi bleed lower gi Bloody diarrhea resolved treated with Protonix acute Anemia A combination of anemia of chronic disease, anemia from acute blood loss and anemia due to chemotherapy transfused 2 units of prbc on 03/08 anemia, neutropenia, severe thrombocytopenia due to chemo therapy thrombocytopenia is severe - has had recent bloody BMs, c/o hemoptysis, has violent cough transfused 1 unit Plt on 03/11/21 Hyponatremia improved Uti urine cx : e coli , pansensitive Treated with ceftriaxone urinary retention likely secondary to narcotics, decreased mobility placed smith cath Metastatic lung ca, r sided with bone mets s/p chemotherapy Did not want further tx Pain control was difficult to control tried to balance between pain and sedation used fenatnyl patch, lidoderm patch, trazodone, oxycodone prn scheduled robitussin DM to manage painful cough Opted for DNR/DNI code status on admission in [place] [employer] 03/13/21 on nursing rounds she was found to have no pulse, no respiration Diagnosis: Stroke: No Modified Garza Scale: Modified Garza Scale Score: 6 - Discharge Data Discharge Date: 03/13/21 Discharge Disposition: 20 Preliminary Cause of *Q: Cardiac Arrest Event(s) Leading to Patient's *Q: see summary of hospital stay Condition: - Referral to Home Health Primary Care Physician: PCP None - Discharge Diagnosis/Problem(s) (1) GI bleed SNOMED Code(s): 72507633 ICD Code: K92.2 - GASTROINTESTINAL HEMORRHAGE, UNSPECIFIED Status: Acute (2) Hyperlipidemia SNOMED Code(s): 30398046 ICD Code: E78.5 - HYPERLIPIDEMIA, UNSPECIFIED Status: Acute Onset Date: 08/20/14 (3) UTI (urinary tract infection) SNOMED Code(s): 50309780 ICD Code: N39.0 - URINARY TRACT INFECTION, SITE NOT SPECIFIED Status: Acute Qualifiers: Urinary tract infection type: acute cystitis Hematuria presence: with hematuria Qualified Code(s): N30.01 - Acute cystitis with hematuria (4) Urinary retention SNOMED Code(s): 007965522 ICD Code: R33.9 - RETENTION OF URINE, UNSPECIFIED Status: Acute - Patient Summary/Data Consults: Consultations 03/07/21 03:05 OT Evaluation and Treatment [CONS] Routine PT Evaluation and Treatment [CONS] Routine - Discharge Plan *PRESCRIPTION DRUG MONITORING PROGRAM REVIEWED*: No *COPY OF PRESCRIPTION DRUG MONITORING REPORT IN PATIENT MEMO: No Home Medications: Home Meds Oxybutynin 5 mg PO TID 08/20/14 [History] atorvaSTATin [Lipitor] 20 mg PO DAILY 03/14/16 [History] Pantoprazole [ProTONIX] 40 mg PO DAILY #30 tab.cr 03/22/17 [Rx] Gabapentin [Neurontin] 100 mg PO BID 01/18/21 [History] traMADol [Ultram] 100 mg PO Q4H PRN 01/18/21 [History] ClonazePAM [KlonoPIN] 0.5 mg PO DAILY PRN 03/07/21 [History] Ferrous Sulfate [Ferosul] 325 mg PO DAILY 03/07/21 [History] Folic Acid 1 mg PO DAILY 03/07/21 [History] Ondansetron [Zofran ODT] 4 mg PO Q6H PRN 03/07/21 [History] traZODone 50 mg PO BEDTIME 03/07/21 [History] - Discharge Summary/Plan Comment DC Time >30 min.: No Total # of Minutes for Discharge Time: 15 min - Patient Data Vitals - Most Recent: Last Vital Signs Temp 100.2 F 03/13/21 03:24 Pulse 107 H 03/13/21 03:24 Resp 20 03/13/21 03:24 BP 123/81 03/13/21 03:24 Pulse Ox 91 L 03/13/21 03:24 Weight - Most Recent: 109 lb I&O - Last 24 hours: Intake & Output 03/12/21 03/13/21 03/13/21 22:59 06:59 14:59 Intake Total 500 891 Output Total 450 Balance 50 891 Lab Results - Last 24 hrs: Laboratory Results - last 24 hr 03/12/21 Range/Units 17:20 Sodium 134 L (136-145) mmol/L Potassium 5.1 (3.5-5.1) mmol/L Chloride 104 (98-107) mmol/L Carbon Dioxide 26 (21-32) mmol/L Anion Gap 9.1 (7-13) mEq/L BUN 16 (7-18) mg/dL Creatinine 0.77 (0.55-1.02) mg/dL Est Cr Clr Drug Dosing 52.30 mL/min Estimated GFR (MDRD) > 60 Glucose 103 H (70-99) mg/dL Calcium 7.7 L (8.5-10.1) mg/dL Med Orders - Current: Current Medications Discontinued Medications Acetaminophen (Acetaminophen 325 Mg Tab) 650 mg PO Q4H PRN PRN Reason: Pain (Mild 1-3)/fever Last Admin: 03/13/21 02:27 Dose: 650 mg Documented by: Clonazepam (Clonazepam 0.5 Mg Tab) 0.5 mg PO Q6H PRN PRN Reason: Anxiety Last Admin: 03/12/21 22:37 Dose: 0.5 mg Documented by: Diphenhydramine HCl (Diphenhydramine 25 Mg Tab) 25 mg PO ONETIME ONE Stop: 03/08/21 14:14 Last Admin: 03/08/21 14:23 Dose: 25 mg Documented by: Fentanyl (Fentanyl 100 Mcg/2 Ml Sdv) 25 mcg IVPUSH ONETIME ONE; Protocol Stop: 03/07/21 00:44 Last Admin: 03/08/21 00:10 Dose: Not Given Documented by: Fentanyl (Fentanyl 100 Mcg/2 Ml Sdv) 25 mcg IVPUSH Q2H PRN PRN Reason: severe pain Last Admin: 03/12/21 19:55 Dose: 25 mcg Documented by: Fentanyl (Fentanyl 25 Mcg/Hr Transdermal Patch) 25 mcg TRDERM Q72H [facility] Last Admin: 03/08/21 11:06 Dose: 25 mcg Documented by: Fentanyl (Fentanyl 25 Mcg/Hr Transdermal Patch) 50 mcg TRDERM Q72H [facility] Last Admin: 03/11/21 10:59 Dose: Not Given Documented by: Fentanyl (Fentanyl 25 Mcg/Hr Transdermal Patch) 25 mcg TRDERM Q72H [facility] Last Admin: 03/11/21 11:16 Dose: 25 mcg Documented by: Ferrous Sulfate (Ferrous Sulfate 325 Mg Tab) 325 mg PO DAILY [facility] Last Admin: 03/12/21 08:14 Dose: 325 mg Documented by: Folic Acid (Folic Acid 1 Mg Tab) 1 mg PO DAILY [facility] Last Admin: 03/12/21 08:14 Dose: 1 mg Documented by: Gabapentin (Gabapentin 100 Mg Cap) 100 mg PO BID [facility] Last Admin: 03/07/21 08:57 Dose: 100 mg Documented by: Gabapentin (Gabapentin 100 Mg Cap) 200 mg PO BID [facility] Last Admin: 03/10/21 09:00 Dose: 200 mg Documented by: Gabapentin (Gabapentin 100 Mg Cap) 300 mg PO BID [facility] Last Admin: 03/12/21 08:14 Dose: 300 mg Documented by: Guaifenesin (Guaifenesin 100 Mg/5 Ml Soln 5 Ml Ud Cup) 100 mg PO Q6H PRN PRN Reason: Cough Last Admin: 03/10/21 23:39 Dose: 100 mg Documented by: Guaifenesin (Guaifenesin 100 Mg/5 Ml Soln 5 Ml Ud Cup) 100 mg PO Q4H PRN PRN Reason: Cough Last Admin: 03/11/21 06:42 Dose: 100 mg Documented by: Guaifenesin/Dextromethorphan (Guaifenesin/Dextromethorphan 100-10 Mg/5 Ml Soln 5 Ml Cup) 10 ml PO TID [facility] Last Admin: 03/12/21 22:04 Dose: 10 ml Documented by: Sodium Chloride (Normal Saline) 500 mls @ 15 mls/hr IV .BOLUS [facility] Last Admin: 03/07/21 00:52 Dose: 15 mls/hr Documented by: Ceftriaxone Sodium 1 gm/ (Sodium Chloride) 50 mls @ 100 mls/hr IV ONETIME ONE Stop: 03/07/21 01:58 Last Admin: 03/07/21 02:08 Dose: 100 mls/hr Documented by: Sodium Chloride (Normal Saline) 1,000 mls @ 75 mls/hr IV ASDIRECTED [facility] Last Admin: 03/08/21 05:41 Dose: 75 mls/hr Documented by: Ceftriaxone Sodium 1 gm/ (Sodium Chloride) 50 mls @ 100 mls/hr IV Q24H [facility] Last Infusion: 03/12/21 22:38 Dose: Infused Documented by: Sodium Chloride (Normal Saline) 1,000 mls @ 75 mls/hr IV ASDIRECTED [facility] Last Admin: 03/13/21 02:11 Dose: 75 mls/hr Documented by: Lidocaine (Lidocaine 5% 700 Mg Patch) 700 mg TRDERM DAILY [facility] Last Admin: 03/11/21 10:03 Dose: 700 mg Documented by: Lidocaine (Lidocaine 5% 700 Mg Patch) 1,400 mg TRDERM DAILY [facility] Last Admin: 03/12/21 08:13 Dose: 1,400 mg Documented by: Lidocaine HCl (Lidocaine 2% Jelly 5 Ml Tube) 0 ml MUCMEM Q4H PRN PRN Reason: soreness of labial ulcer Last Admin: 03/10/21 20:57 Dose: 1 applic Documented by: Lorazepam (Lorazepam 2 Mg/Ml Sdv) 1 mg IVPUSH ONETIME ONE Stop: 03/11/21 00:07 Last Admin: 03/11/21 00:27 Dose: 1 mg Documented by: Miscellaneous Information (Check Patch) 1 ea TRDERM BID [facility] Last Admin: 03/12/21 20:43 Dose: 1 ea Documented by: Miscellaneous Information (Remove Patch) 1 ea TRDERM Q72H [facility] Last Admin: 03/11/21 11:18 Dose: 1 ea Documented by: Miscellaneous Information (Remove Patch) 1 ea TRDERM BEDTIME [facility] Last Admin: 03/10/21 20:47 Dose: 1 ea Documented by: Miscellaneous Information (Remove Patch) 2 ea TRDERM BEDTIME [facility] Last Admin: 03/12/21 22:09 Dose: 2 ea Documented by: Morphine Sulfate (Morphine 2 Mg/Ml Syringe) 2 mg IVPUSH ONETIME ONE Stop: 03/07/21 00:45 Last Admin: 03/07/21 00:51 Dose: 2 mg Documented by: Ondansetron HCl (Ondansetron 4 Mg/2 Ml Sdv) 4 mg IVPUSH ONETIME ONE Stop: 03/07/21 00:46 Last Admin: 03/07/21 00:52 Dose: 4 mg Documented by: Ondansetron HCl (Ondansetron 4 Mg/2 Ml Sdv) 4 mg IVPUSH Q6H PRN PRN Reason: Nausea/Vomiting Last Admin: 03/11/21 00:23 Dose: 4 mg Documented by: Oxybutynin Chloride (Oxybutynin 5 Mg Tab) 5 mg PO TID [facility] Last Admin: 03/12/21 22:07 Dose: 5 mg Documented by: Oxycodone HCl (Oxycodone 5 Mg Tab) 5 mg PO Q4H PRN PRN Reason: Pain (moderate 4-6) Last Admin: 03/09/21 08:57 Dose: 5 mg Documented by: Oxycodone HCl (Oxycodone 5 Mg Tab) 10 mg PO Q4H PRN PRN Reason: Pain (moderate 4-6) Last Admin: 03/12/21 22:07 Dose: 10 mg Documented by: Pantoprazole Sodium (Pantoprazole 40 Mg Tab.Cr) 40 mg PO DAILY [facility] Pantoprazole Sodium (Pantoprazole 40 Mg Tab.Cr) 40 mg PO BID@0600,2100 [facility] Last Admin: 03/12/21 22:07 Dose: 40 mg Documented by: Phenazopyridine HCl (Phenazopyridine 95 Mg Tab) 95 mg PO DAILY [facility] Last Admin: 03/12/21 08:14 Dose: 95 mg Documented by: Potassium Chloride (Potassium Chloride 10 Meq Tab.Er) 20 meq PO ONETIME ONE Stop: 03/10/21 14:46 Last Admin: 03/10/21 14:55 Dose: 20 meq Documented by: Sodium Chloride (Sodium Chloride 0.9% 10 Ml Syringe) 10 ml FLUSH ASDIRECTED PRN PRN Reason: IV Use Last Admin: 03/12/21 01:25 Dose: 10 ml Documented by: Tramadol HCl (Tramadol 50 Mg Tab) 100 mg PO Q4H PRN PRN Reason: Pain Last Admin: 03/08/21 09:45 Dose: 100 mg Documented by: Trazodone HCl (Trazodone 50 Mg Tab) 50 mg PO BEDTIME [facility] Last Admin: 03/12/21 22:03 Dose: 50 mg Documented by:
== END 2021-03-13 04:15 | disposition expired | DRG 947 ==
LOC: DL.ED 23:50 → DL.MS 03-07 01:48
PROVIDERS: ADMIT Internal Medicine; ATTEND Internal Medicine
PROC: 30233N1 Transfusion of Nonautologous Red Blood Cells into Peripheral Vein, Percutaneous Approach (ICD-10-PCS; principal; 2021-03-08)
PROC: 30233R1 Transfusion of Nonautologous Platelets into Peripheral Vein, Percutaneous Approach (ICD-10-PCS; 2021-03-11)
DX: G89.3 Neoplasm related pain (acute) (chronic) (principal); D61.810 Antineoplastic chemotherapy induced pancytopenia; N39.0 Urinary tract infection, site not specified; D62 Acute posthemorrhagic anemia; E87.1 Hypo-osmolality and hyponatremia; C79.51 Secondary malignant neoplasm of bone; N30.01 Acute cystitis with hematuria; R04.2 Hemoptysis; K92.1 Melena; K92.0 Hematemesis; C34.91 Malignant neoplasm of unspecified part of right bronchus or lung; R53.1 Weakness; D70.1 Agranulocytosis secondary to cancer chemotherapy; T45.1X5A Adverse effect of antineoplastic and immunosuppressive drugs, initial encounter; D69.59 Other secondary thrombocytopenia; Z66 Do not resuscitate; Z20.822 Contact with and (suspected) exposure to COVID-19; R33.0 Drug induced retention of urine; T40.605A Adverse effect of unspecified narcotics, initial encounter; E78.5 Hyperlipidemia, unspecified; E11.40 Type 2 diabetes mellitus with diabetic neuropathy, unspecified; H54.7 Unspecified visual loss; I12.9 Hypertensive chronic kidney disease with stage 1 through stage 4 chronic kidney disease, or unspecified chronic kidney disease; K21.9 Gastro-esophageal reflux disease without esophagitis; N18.30 Chronic kidney disease, stage 3 unspecified; R32 Unspecified urinary incontinence; G43.909 Migraine, unspecified, not intractable, without status migrainosus; M19.90 Unspecified osteoarthritis, unspecified site; M54.9 Dorsalgia, unspecified; E11.42 Type 2 diabetes mellitus with diabetic polyneuropathy; F41.9 Anxiety disorder, unspecified; F32.A Depression, unspecified; D64.81 Anemia due to antineoplastic chemotherapy; D63.0 Anemia in neoplastic disease; D63.1 Anemia in chronic kidney disease; B96.20 Unspecified Escherichia coli [E. coli] as the cause of diseases classified elsewhere; R19.7 Diarrhea, unspecified; I25.119 Atherosclerotic heart disease of native coronary artery with unspecified angina pectoris; E78.00 Pure hypercholesterolemia, unspecified; E11.22 Type 2 diabetes mellitus with diabetic chronic kidney disease; Z79.899 Other long term (current) drug therapy; I25.2 Old myocardial infarction; Z95.5 Presence of coronary angioplasty implant and graft; Z90.710 Acquired absence of both cervix and uterus; Z87.891 Personal history of nicotine dependence; Z28.82 Immunization not carried out because of caregiver refusal; Z87.442 Personal history of urinary calculi; Z90.79 Acquired absence of other genital organ(s)
CPT/HCPCS: 36415; 71045; 80053; 81001; 82272; 83605; 85025; 85610; 87086; 87088; 87186; 96374; 96375; 99285; J2270; J2405; J7040; U0002; 36430; 51702; 51798; 80048; 86850; 86900; 86901; 86920; 86922; 97161-GP; 99221; 99232; 99233; 99238; A9270-GY; J0696; J2060; J3010; J7030; P9016; P9019